=== PATIENT | male | born 1940 | race Caucasian/White ===

== ENCOUNTER 2018-10-07 19:19 | Inpatient (IN) | payer OTHER, MEDICAID ==
[~2018-10-07] VITALS: Ht 177.8 cm; Wt 91.6 kg
[~2018-10-07 19:19] MED LIST: BUPIVACAINE /PF 0.75% 10 ML VIAL INJ ONE; LR 1,000 ML IV.SOLN IV ONE; NS IRRIG SOLN 1000 ML IR ONE
[2018-10-07 19:23] VITALS: BP_SYST 99
[2018-10-07] MEDS ORDERED: NACL 0.9% 1,000 ML IV ONE (20:07)
[2018-10-07] MEDS ORDERED: LEVOFLOXACIN 500 MG/D5W 100 ML IV ONE (20:15)
[2018-10-07] MEDS ORDERED: VANCOMYCIN HCL 1,000 MG in NS 250 ML IV ONE (20:15)
[2018-10-07 20:56] LABS: ANION GAP 8 (5-15); CALCIUM 9.3 mg/dL (8.4-11.0); CHLORIDE 100 mmol/L (98-107); CREATININE 1.02 mg/dL (0.55-1.30); GLUCOSE 136 mg/dL (70-99); POTASSIUM 3.7 mmol/L (3.5-5.1); SODIUM SERUM 135 mmol/L (136-145); UREA NITROGEN, BLOOD 16 mg/dL (8-21)
[2018-10-07 20:58] LABS: ALANINE AMINOTRANSFERASE 27 U/L (12-78); ALBUMIN 1.9 g/dL (3.4-4.8); ASPARTATE AMINOTRANSFERASE 36 U/L (10-37); HEMOGLOBIN 12.1 g/dL (14.0-18.0); RED BLOOD CELL COUNT(AUTO) 4.11 MIL/uL (4.2-6.2); TOTAL BILIRUBIN 0.3 mg/dL (0.0-1.0); WHITE BLOOD COUNT (AUTO) 13.6 K/uL (4.8-10.8)
[2018-10-07 20:59] LABS: HEMATOCRIT 36.4 % (36-54); MEAN CORPUSCULAR HEMOGLOBIN 30 pg (27-31); MEAN CORPUSCULAR HGB CONC 33 % (32-36); MEAN CORPUSCULAR VOLUME 89 fL (79.0-98.0); PLATELET COUNT (AUTO) 478 K/uL (130-430); RED CELL DISTRIBUTION WIDTH 15.1 % (9.0-15.0)
[2018-10-07 21:00] LABS: BASOPHILS # (AUTO) 0.1 K/uL (0.0-0.2); BASOPHILS % (AUTO) 0.7 % (0.0-2.0); EOSINOPHILS # (AUTO) 0.3 K/uL (0.0-0.4); EOSINOPHILS % (AUTO) 2.1 % (0.0-4.0); LYMPHOCYTES # (AUTO) 1.9 K/uL (1.0-5.5); LYMPHOCYTES % (AUTO) 14.1 % (20.5-51.5); MONOCYTES # (AUTO) 1.2 K/uL (0.0-1.0); MONOCYTES % (AUTO) 8.6 % (1.7-9.3); NEUTROPHILS # (AUTO) 10.1 K/uL (1.8-7.7); NEUTROPHILS % (AUTO) 74.5 % (40.0-70.0)
[2018-10-07] MEDS ORDERED: VANCOMYCIN HCL 1000 MG/VIAL IV ONE (21:37)
[2018-10-07] MEDS ORDERED: DOCU-144 PO (22:24)
[2018-10-07] MEDS ORDERED: METO50TA7 PO (22:24)
[2018-10-07] MEDS ORDERED: PHEN100C4 PO (22:24)
[2018-10-07] MEDS ORDERED: MULT-1184 PO (22:24)
[2018-10-07] MEDS ORDERED: DILT30TA36 PO (22:24)
[2018-10-07] MEDS ORDERED: HYDR-4039 PO (22:24)
[2018-10-07] MEDS ORDERED: DONE10TA44 PO (22:24)
[2018-10-07] MEDS ORDERED: FAMO40TA71 PO (22:24)
[2018-10-07] MEDS ORDERED: XALEYE OP (22:24)
[2018-10-07] MEDS ORDERED: APIX5TAB4 PO (22:24)
[2018-10-07] MEDS ORDERED: LACT1TAB6 PO (22:24)
[2018-10-07] MEDS ORDERED: LIP80 PO (22:24)
[2018-10-07] MEDS ORDERED: LEVE750T4 PO (22:24)
[2018-10-07] MEDS ORDERED: LACO200T2 PO (22:24)
[2018-10-07] MEDS ORDERED: INSULIN REGULAR, HUMAN 100 UNITS/ML, 10 ML VIAL (novoLIN R) SUBCUT PRN (23:15)
[2018-10-07] MEDS ORDERED: LORazepam 2 MG/ML VIAL IVP PRN (23:15)
[2018-10-07] MEDS ORDERED: NACL 0.9% 1,000 ML IV SCH (23:15)
[2018-10-07] MEDS ORDERED: NACL 0.9% 1,700 ML IV ONE ×2 (23:30→23:45)
[2018-10-08 01:05] VITALS: BP_SYST 160
[2018-10-08] MEDS: NACL 0.9% 1,000 ML IV SCH ×2 (03:08→23:52)
[2018-10-08] MEDS: INSULIN REGULAR, HUMAN 100 UNITS/ML, 10 ML VIAL (novoLIN R) SUBCUT PRN ×2 (06:08→20:10)
[2018-10-08 07:29] LABS: INR 1.2 (0.80-1.20); PROTHROMBIN TIME 11.8 SECS (9.5-12.5)
[2018-10-08 07:48] LABS: RED BLOOD CELL COUNT(AUTO) 3.45 MIL/uL (4.2-6.2)
[2018-10-08 07:49] LABS: BASOPHILS % (AUTO) 0.4 % (0.0-2.0); EOSINOPHILS % (AUTO) 1.3 % (0.0-4.0); HEMATOCRIT 30.5 % (36-54); HEMOGLOBIN 9.9 g/dL (14.0-18.0); LYMPHOCYTES # (AUTO) 1.9 K/uL (1.0-5.5); LYMPHOCYTES % (AUTO) 15.9 % (20.5-51.5); MEAN CORPUSCULAR HEMOGLOBIN 29 pg (27-31); MEAN CORPUSCULAR HGB CONC 32 % (32-36); MEAN CORPUSCULAR VOLUME 88 fL (79.0-98.0); MONOCYTES # (AUTO) 1.3 K/uL (0.0-1.0); MONOCYTES % (AUTO) 10.4 % (1.7-9.3); NEUTROPHILS # (AUTO) 8.6 K/uL (1.8-7.7); PLATELET COUNT (AUTO) 380 K/uL (130-430); RED CELL DISTRIBUTION WIDTH 15.8 % (9.0-15.0)
[2018-10-08 07:50] LABS: EOSINOPHILS # (AUTO) 0.2 K/uL (0.0-0.4)
[2018-10-08 07:55] LABS: ANION GAP 6 (5-15); CALCIUM 8.1 mg/dL (8.4-11.0); CHLORIDE 103 mmol/L (98-107); CREATININE 0.69 mg/dL (0.55-1.30); GLUCOSE 128 mg/dL (70-99); POTASSIUM 3.6 mmol/L (3.5-5.1); SODIUM SERUM 133 mmol/L (136-145); UREA NITROGEN, BLOOD 16 mg/dL (8-21)
[2018-10-08] MEDS ORDERED: DOCUSATE SODIUM 100 MG CAPSULE PO SCH ×2 (09:00)
[2018-10-08] MEDS: LATANOPROST 2.5 ML DROPS (XALATAN) OP SCH ×2 (09:00→09:24)
[2018-10-08] MEDS ORDERED: LACTOBACILLUS RHAMNOSUS GG 1 CAP CAPSULE PO SCH (09:00)
[2018-10-08] MEDS: VANCOMYCIN HCL 1,750 MG in NS 500 ML IV SCH ×2 (09:24→20:08)
[2018-10-08] MEDS: hydrALAZINE HCL 25 MG TABLET PO SCH ×3 (09:25→20:17)
[2018-10-08] MEDS: LACOSAMIDE 100 MG TABLET PO SCH ×3 (09:25→20:18)
[2018-10-08] MEDS: FAMOTIDINE 20 MG TABLET PO SCH (09:25)
[2018-10-08] MEDS: METOPROLOL SUCCINATE 50 MG TAB.SR.24H (TOPROL XL) PO SCH ×2 (09:26→20:18)
[2018-10-08] MEDS: MULTIVITS,CA,MINERALS/IRON/FA 1 TABLET PO SCH (09:27)
[2018-10-08] MEDS: LACTOBACILLUS RHAMNOSUS GG 1 CAP CAPSULE PO SCH ×2 (09:27→20:18)
[2018-10-08] MEDS: levETIRAcetam 500 MG TABLET PO SCH ×2 (09:27→20:18)
[2018-10-08] MEDS: DILTIAZEM HCL 30 MG TABLET PO SCH ×4 (09:28→20:19)
[2018-10-08 10:19] VITALS: BP_SYST 150
[2018-10-08] MEDS ORDERED: CHOLECALCIFEROL (VITAMIN D3) 2,000 UNIT TABLET PO ONE (11:45)
[2018-10-08 12:22] VITALS: BP_SYST 129
[2018-10-08 13:26] LABS: TOTAL IRON BIND. CAPACITY 117 ug/dL (250-450)
[2018-10-08 16:26] VITALS: BP_SYST 131
[2018-10-08] MEDS ORDERED: BALSAM PERU/CASTOR OIL 60 GM OINT...G. TP ONE (16:30)
[2018-10-08 18:29] LABS: BILIRUBIN,URINE NEGATIVE (NEGATIVE); BLOOD, URINE NEGATIVE (NEGATIVE); CLARITY/URINE CLEAR (CLEAR); COLOR,URINE YELLOW (YELLOW); GLUCOSE,URINE NEGATIVE (NEGATIVE); KETONES,URINE NEGATIVE (NEGATIVE); LEUKOCYTE ESTERASE ,URINE NEGATIVE (NEGATIVE); NITRITE, URINE NEGATIVE (NEGATIVE); PH,URINE 5.5 (5.0-8.0); PROTEIN URINE 1+ (NEGATIVE)
[2018-10-08 18:34] LABS: BACTERIA,URINE MODERATE /HPF (None Seen); RBC,URINE 0-3 /HPF (0-3); URINE AMORPHOUS URATE 1+ /HPF (None Seen); WBC,URINE 0-3 /HPF (0-3)
[2018-10-08] MEDS: PHENYTOIN 100 MG CAPSULE PO SCH (20:15)
[2018-10-08] MEDS: ATORVASTATIN 20 MG TABLET PO SCH (20:16)
[2018-10-08] MEDS: DONEPEZIL HCL 5 MG TABLET (ARICEPT) PO SCH (20:18)
[2018-10-08] MEDS ORDERED: LEVOFLOXACIN 500 MG/D5W 100 ML IV SCH (21:00)
[2018-10-08 21:34] VITALS: BP_SYST 150
[2018-10-08] MEDS: PIPERACILLIN/TAZO 4.5GM/DEX-IS 100 ML IV SCH (22:26)
[2018-10-08] MEDS: FLUCONAZOLE 200 mg/ NS 100 ML IV SCH (23:50)
[2018-10-09 00:52] VITALS: BP_SYST 140
[2018-10-09] MEDS: PIPERACILLIN/TAZO 4.5GM/DEX-IS 100 ML IV SCH ×2 (05:12→14:03)
[2018-10-09 07:46] LABS: ANION GAP 10 (5-15); CALCIUM 8.4 mg/dL (8.4-11.0); CHLORIDE 103 mmol/L (98-107); CREATININE 0.68 mg/dL (0.55-1.30); GLUCOSE 141 mg/dL (70-99); POTASSIUM 3.5 mmol/L (3.5-5.1); SODIUM SERUM 136 mmol/L (136-145); UREA NITROGEN, BLOOD 10 mg/dL (8-21)
[2018-10-09 07:56] LABS: ALANINE AMINOTRANSFERASE 20 U/L (12-78); ALBUMIN 1.3 g/dL (3.4-4.8); ASPARTATE AMINOTRANSFERASE 25 U/L (10-37); TOTAL BILIRUBIN 0.3 mg/dL (0.0-1.0)
[2018-10-09 08:03] VITALS: BP_SYST 151
[2018-10-09] MEDS: DOCUSATE SODIUM 100 MG/10 ML UDC PO SCH (08:39)
[2018-10-09] MEDS: LACOSAMIDE 100 MG TABLET PO SCH (08:40)
[2018-10-09] MEDS: hydrALAZINE HCL 25 MG TABLET PO SCH ×2 (08:40→15:00)
[2018-10-09] MEDS: FAMOTIDINE 20 MG TABLET PO SCH (08:40)
[2018-10-09] MEDS: METOPROLOL SUCCINATE 50 MG TAB.SR.24H (TOPROL XL) PO SCH (08:41)
[2018-10-09] MEDS: DILTIAZEM HCL 30 MG TABLET PO SCH ×3 (08:42→17:00)
[2018-10-09] MEDS: MULTIVITS,CA,MINERALS/IRON/FA 1 TABLET PO SCH (08:42)
[2018-10-09] MEDS: LACTOBACILLUS RHAMNOSUS GG 1 CAP CAPSULE PO SCH (08:42)
[2018-10-09] MEDS: CHOLECALCIFEROL (VITAMIN D3) 2,000 UNIT TABLET PO SCH (08:42)
[2018-10-09] MEDS: levETIRAcetam 500 MG TABLET PO SCH (08:42)
[2018-10-09] MEDS: BALSAM PERU/CASTOR OIL 60 GM OINT...G. TP SCH (08:57)
[2018-10-09] MEDS: LATANOPROST 2.5 ML DROPS (XALATAN) OP SCH (08:59)
[2018-10-09] MEDS: VANCOMYCIN HCL 1,750 MG in NS 500 ML IV SCH (10:22)
[2018-10-09] MEDS: D5NS 1,000 ML IV SCH ×2 (11:08→20:45)
[2018-10-09 12:08] VITALS: BP_SYST 128
[2018-10-09 16:30] VITALS: BP_SYST 144
[2018-10-09] MEDS ORDERED: fentaNYL CITRATE/PF 100 MCG/2 ML AMP IVP PRN ×2 (18:45)
[2018-10-09] MEDS ORDERED: ONDANSETRON HCL 4 MG/2 ML VIAL IVP PRN (18:45)
[2018-10-09 19:11] VITALS: BP_SYST 144
[2018-10-09] MEDS ORDERED: MORPHINE 4 MG/ML INJ. SYRINGE IVP PRN (22:45)
[2018-10-09] MEDS ORDERED: HYDROcodone/ACETAMIN 5-325 MG TAB (NORCO/ VICODIN) PO PRN (22:45)
[2018-10-10 00:27] VITALS: BP_SYST 136
[2018-10-10] MEDS: PHENYTOIN 100 MG CAPSULE PO SCH ×2 (00:33→22:04)
[2018-10-10] MEDS: hydrALAZINE HCL 25 MG TABLET PO SCH ×4 (00:33→22:05)
[2018-10-10] MEDS: LACTOBACILLUS RHAMNOSUS GG 1 CAP CAPSULE PO SCH ×3 (00:33→22:03)
[2018-10-10] MEDS: ATORVASTATIN 20 MG TABLET PO SCH ×2 (00:33→22:05)
[2018-10-10] MEDS: LACOSAMIDE 100 MG TABLET PO SCH ×3 (00:33→22:09)
[2018-10-10] MEDS: METOPROLOL SUCCINATE 50 MG TAB.SR.24H (TOPROL XL) PO SCH ×3 (00:34→22:06)
[2018-10-10] MEDS: DILTIAZEM HCL 30 MG TABLET PO SCH ×5 (00:34→22:05)
[2018-10-10] MEDS: levETIRAcetam 500 MG TABLET PO SCH ×3 (00:35→22:04)
[2018-10-10] MEDS: DONEPEZIL HCL 5 MG TABLET (ARICEPT) PO SCH ×2 (00:35→22:09)
[2018-10-10] MEDS: FLUCONAZOLE 200 mg/ NS 100 ML IV SCH ×2 (00:35→18:10)
[2018-10-10] MEDS: INSULIN REGULAR, HUMAN 100 UNITS/ML, 10 ML VIAL (novoLIN R) SUBCUT PRN ×3 (00:37→16:16)
[2018-10-10] MEDS: PIPERACILLIN/TAZO 4.5GM/DEX-IS 100 ML IV SCH ×4 (02:01→22:03)
[2018-10-10] MEDS: VANCOMYCIN HCL 1,750 MG in NS 500 ML IV SCH ×3 (03:03→22:03)
[2018-10-10] MEDS: D5NS 1,000 ML IV SCH ×2 (06:45→16:24)
[2018-10-10 07:45] VITALS: BP_SYST 120
[2018-10-10] MEDS: BALSAM PERU/CASTOR OIL 60 GM OINT...G. TP SCH (09:00)
[2018-10-10] MEDS: DOCUSATE SODIUM 100 MG/10 ML UDC PO SCH (09:34)
[2018-10-10] MEDS: CHOLECALCIFEROL (VITAMIN D3) 2,000 UNIT TABLET PO SCH (09:35)
[2018-10-10] MEDS: FAMOTIDINE 20 MG TABLET PO SCH (09:36)
[2018-10-10] MEDS: MULTIVITS,CA,MINERALS/IRON/FA 1 TABLET PO SCH (09:36)
[2018-10-10] MEDS: LATANOPROST 2.5 ML DROPS (XALATAN) OP SCH (09:48)
[2018-10-10 13:14] VITALS: BP_SYST 140
[2018-10-10 14:31] LABS: ANION GAP 9 (5-15); CALCIUM 8.3 mg/dL (8.4-11.0); CHLORIDE 105 mmol/L (98-107); CREATININE 1.06 mg/dL (0.55-1.30); GLUCOSE 179 mg/dL (70-99); POTASSIUM 3.5 mmol/L (3.5-5.1); SODIUM SERUM 138 mmol/L (136-145); UREA NITROGEN, BLOOD 10 mg/dL (8-21)
[2018-10-10 14:37] LABS: ALANINE AMINOTRANSFERASE 20 U/L (12-78); ALBUMIN 1.4 g/dL (3.4-4.8); ASPARTATE AMINOTRANSFERASE 30 U/L (10-37); TOTAL BILIRUBIN 0.3 mg/dL (0.0-1.0)
[2018-10-10 14:40] LABS: HEMOGLOBIN 9.8 g/dL (14.0-18.0); RED BLOOD CELL COUNT(AUTO) 3.38 MIL/uL (4.2-6.2); WHITE BLOOD COUNT (AUTO) 12.4 K/uL (4.8-10.8)
[2018-10-10 14:41] LABS: BASOPHILS % (AUTO) 1.1 % (0.0-2.0); EOSINOPHILS % (AUTO) 5.2 % (0.0-4.0); HEMATOCRIT 29.8 % (36-54); LYMPHOCYTES % (AUTO) 10.4 % (20.5-51.5); MEAN CORPUSCULAR HEMOGLOBIN 29 pg (27-31); MEAN CORPUSCULAR HGB CONC 33 % (32-36); MEAN CORPUSCULAR VOLUME 88 fL (79.0-98.0); MONOCYTES % (AUTO) 9.2 % (1.7-9.3); NEUTROPHILS # (AUTO) 9.2 K/uL (1.8-7.7); NEUTROPHILS % (AUTO) 74.1 % (40.0-70.0); PLATELET COUNT (AUTO) 407 K/uL (130-430); RED CELL DISTRIBUTION WIDTH 15.6 % (9.0-15.0)
[2018-10-10 14:42] LABS: BASOPHILS # (AUTO) 0.1 K/uL (0.0-0.2); EOSINOPHILS # (AUTO) 0.6 K/uL (0.0-0.4); LYMPHOCYTES # (AUTO) 1.3 K/uL (1.0-5.5); MONOCYTES # (AUTO) 1.1 K/uL (0.0-1.0)
[2018-10-10 18:09] VITALS: BP_SYST 132
[2018-10-10 20:41] VITALS: BP_SYST 145
[2018-10-11 00:42] VITALS: BP_SYST 109
[2018-10-11] MEDS: D5NS 1,000 ML IV SCH ×2 (02:00→16:16)
[2018-10-11] MEDS: PIPERACILLIN/TAZO 4.5GM/DEX-IS 100 ML IV SCH ×3 (06:13→23:27)
[2018-10-11 07:06] LABS: ANION GAP 9 (5-15); CALCIUM 8.5 mg/dL (8.4-11.0); CHLORIDE 105 mmol/L (98-107); CREATININE 1.09 mg/dL (0.55-1.30); GLUCOSE 147 mg/dL (70-99); POTASSIUM 3.5 mmol/L (3.5-5.1); SODIUM SERUM 136 mmol/L (136-145); UREA NITROGEN, BLOOD 9 mg/dL (8-21)
[2018-10-11 07:32] LABS: HEMATOCRIT 27.5 % (36-54); HEMOGLOBIN 8.9 g/dL (14.0-18.0); RED BLOOD CELL COUNT(AUTO) 3.06 MIL/uL (4.2-6.2); WHITE BLOOD COUNT (AUTO) 11.6 K/uL (4.8-10.8)
[2018-10-11 07:33] LABS: BASOPHILS # (AUTO) 0.1 K/uL (0.0-0.2); BASOPHILS % (AUTO) 0.5 % (0.0-2.0); EOSINOPHILS # (AUTO) 0.6 K/uL (0.0-0.4); EOSINOPHILS % (AUTO) 5.3 % (0.0-4.0); LYMPHOCYTES % (AUTO) 16.9 % (20.5-51.5); MEAN CORPUSCULAR HEMOGLOBIN 29 pg (27-31); MEAN CORPUSCULAR HGB CONC 33 % (32-36); MEAN CORPUSCULAR VOLUME 90 fL (79.0-98.0); MONOCYTES # (AUTO) 1.4 K/uL (0.0-1.0); MONOCYTES % (AUTO) 12.1 % (1.7-9.3); NEUTROPHILS # (AUTO) 7.6 K/uL (1.8-7.7); NEUTROPHILS % (AUTO) 65.2 % (40.0-70.0); PLATELET COUNT (AUTO) 372 K/uL (130-430); RED CELL DISTRIBUTION WIDTH 16.1 % (9.0-15.0)
[2018-10-11 08:56] VITALS: BP_SYST 116
[2018-10-11] MEDS: VANCOMYCIN HCL 1,750 MG in NS 500 ML IV SCH ×2 (09:02→20:26)
[2018-10-11] MEDS: hydrALAZINE HCL 25 MG TABLET PO SCH ×2 (09:03→15:00)
[2018-10-11] MEDS: LATANOPROST 2.5 ML DROPS (XALATAN) OP SCH (09:03)
[2018-10-11] MEDS: METOPROLOL SUCCINATE 50 MG TAB.SR.24H (TOPROL XL) PO SCH ×2 (09:04→21:58)
[2018-10-11] MEDS: CHOLECALCIFEROL (VITAMIN D3) 2,000 UNIT TABLET PO SCH (09:04)
[2018-10-11] MEDS: levETIRAcetam 500 MG TABLET PO SCH ×2 (09:04→21:59)
[2018-10-11] MEDS: LACTOBACILLUS RHAMNOSUS GG 1 CAP CAPSULE PO SCH ×2 (09:04→21:57)
[2018-10-11] MEDS: DOCUSATE SODIUM 100 MG/10 ML UDC PO SCH (09:05)
[2018-10-11] MEDS: FAMOTIDINE 20 MG TABLET PO SCH (09:05)
[2018-10-11] MEDS: DILTIAZEM HCL 30 MG TABLET PO SCH ×4 (09:05→21:58)
[2018-10-11] MEDS: MULTIVITS,CA,MINERALS/IRON/FA 1 TABLET PO SCH ×2 (09:07→21:57)
[2018-10-11] MEDS: LACOSAMIDE 100 MG TABLET PO SCH ×2 (09:07→21:58)
[2018-10-11 13:00] VITALS: BP_SYST 120
[2018-10-11] MEDS ORDERED: IRON SUCROSE COMPLEX 100 MG in NS 50 ML IV ONE (14:30)
[2018-10-11] MEDS ORDERED: EPOETIN ALFA 4,000 UNITS/ML VIAL SUBCUT ONE (14:30)
[2018-10-11 16:42] VITALS: BP_SYST 112
[2018-10-11] MEDS: FLUCONAZOLE 200 mg/ NS 100 ML IV SCH (18:46)
[2018-10-11 20:09] VITALS: BP_SYST 154
[2018-10-11] MEDS: ATORVASTATIN 20 MG TABLET PO SCH (21:57)
[2018-10-11] MEDS: PHENYTOIN 100 MG CAPSULE PO SCH (21:59)
[2018-10-11] MEDS: DONEPEZIL HCL 5 MG TABLET (ARICEPT) PO SCH (21:59)
[2018-10-12] MEDS: D5NS 1,000 ML IV SCH (02:50)
[2018-10-12 03:21] VITALS: BP_SYST 127
[2018-10-12] MEDS: PIPERACILLIN/TAZO 4.5GM/DEX-IS 100 ML IV SCH ×3 (06:06→23:04)
[2018-10-12 07:34] LABS: ANION GAP 7 (5-15); CALCIUM 8.4 mg/dL (8.4-11.0); CHLORIDE 110 mmol/L (98-107); CREATININE 1.34 mg/dL (0.55-1.30); GLUCOSE 147 mg/dL (70-99); POTASSIUM 3.1 mmol/L (3.5-5.1); SODIUM SERUM 142 mmol/L (136-145); UREA NITROGEN, BLOOD 12 mg/dL (8-21)
[2018-10-12 07:38] VITALS: BP_SYST 151; BP_SYST 157
[2018-10-12] MEDS: levETIRAcetam 500 MG TABLET PO SCH ×2 (09:19→20:45)
[2018-10-12] MEDS: LACOSAMIDE 100 MG TABLET PO SCH ×2 (09:19→20:42)
[2018-10-12] MEDS: DOCUSATE SODIUM 100 MG/10 ML UDC PO SCH (09:19)
[2018-10-12] MEDS: FAMOTIDINE 20 MG TABLET PO SCH (09:19)
[2018-10-12] MEDS: LACTOBACILLUS RHAMNOSUS GG 1 CAP CAPSULE PO SCH ×2 (09:20→20:43)
[2018-10-12] MEDS: METOPROLOL SUCCINATE 50 MG TAB.SR.24H (TOPROL XL) PO SCH ×2 (09:20→20:45)
[2018-10-12 09:21] LABS: HEMATOCRIT 25.2 % (36-54); HEMOGLOBIN 8.2 g/dL (14.0-18.0); LYMPHOCYTES % (AUTO) 14.4 % (20.5-51.5); MEAN CORPUSCULAR HEMOGLOBIN 29 pg (27-31); MEAN CORPUSCULAR HGB CONC 33 % (32-36); MEAN CORPUSCULAR VOLUME 89 fL (79.0-98.0); NEUTROPHILS % (AUTO) 68.9 % (40.0-70.0); PLATELET COUNT (AUTO) 323 K/uL (130-430); RED BLOOD CELL COUNT(AUTO) 2.83 MIL/uL (4.2-6.2); RED CELL DISTRIBUTION WIDTH 16.3 % (9.0-15.0); WHITE BLOOD COUNT (AUTO) 10.3 K/uL (4.8-10.8)
[2018-10-12 09:22] LABS: BASOPHILS # (AUTO) 0.1 K/uL (0.0-0.2); BASOPHILS % (AUTO) 0.5 % (0.0-2.0); EOSINOPHILS # (AUTO) 0.5 K/uL (0.0-0.4); EOSINOPHILS % (AUTO) 5.2 % (0.0-4.0); LYMPHOCYTES # (AUTO) 1.5 K/uL (1.0-5.5); MONOCYTES # (AUTO) 1.1 K/uL (0.0-1.0); NEUTROPHILS # (AUTO) 7.1 K/uL (1.8-7.7)
[2018-10-12] MEDS: LATANOPROST 2.5 ML DROPS (XALATAN) OP SCH (09:22)
[2018-10-12] MEDS: CHOLECALCIFEROL (VITAMIN D3) 2,000 UNIT TABLET PO SCH (09:22)
[2018-10-12] MEDS: MULTIVITS,CA,MINERALS/IRON/FA 1 TABLET PO SCH ×2 (09:22→20:44)
[2018-10-12] MEDS: DILTIAZEM HCL 30 MG TABLET PO SCH ×4 (09:22→20:44)
[2018-10-12] MEDS: VANCOMYCIN HCL 1,750 MG in NS 500 ML IV SCH ×2 (09:23→20:42)
[2018-10-12] MEDS ORDERED: POTASSIUM CHLORIDE 20 MEQ TAB.PRT.SR PO ONE (13:45)
[2018-10-12 13:55] VITALS: BP_SYST 128
[2018-10-12] MEDS: LR 1,000 ML IV SCH (14:14)
[2018-10-12 16:39] VITALS: BP_SYST 135
[2018-10-12] MEDS: FLUCONAZOLE 200 mg/ NS 100 ML IV SCH (19:22)
[2018-10-12 20:00] VITALS: BP_SYST 145
[2018-10-12] MEDS: PHENYTOIN 100 MG CAPSULE PO SCH (20:43)
[2018-10-12] MEDS: ATORVASTATIN 20 MG TABLET PO SCH (20:44)
[2018-10-12] MEDS: DONEPEZIL HCL 5 MG TABLET (ARICEPT) PO SCH (20:44)
[2018-10-13 02:45] VITALS: BP_SYST 147
[2018-10-13] MEDS: LR 1,000 ML IV SCH ×2 (06:01→16:40)
[2018-10-13] MEDS: PIPERACILLIN/TAZO 4.5GM/DEX-IS 100 ML IV SCH ×2 (06:02→14:05)
[2018-10-13 08:18] VITALS: BP_SYST 143
[2018-10-13 08:23] LABS: ANION GAP 9 (5-15); CALCIUM 8.6 mg/dL (8.4-11.0); CHLORIDE 114 mmol/L (98-107); CREATININE 1.69 mg/dL (0.55-1.30); GLUCOSE 147 mg/dL (70-99); POTASSIUM 3.9 mmol/L (3.5-5.1); SODIUM SERUM 144 mmol/L (136-145); UREA NITROGEN, BLOOD 19 mg/dL (8-21)
[2018-10-13 08:40] LABS: RED BLOOD CELL COUNT(AUTO) 3.17 MIL/uL (4.2-6.2); WHITE BLOOD COUNT (AUTO) 11.7 K/uL (4.8-10.8)
[2018-10-13 08:41] LABS: BASOPHILS # (AUTO) 0.1 K/uL (0.0-0.2); EOSINOPHILS # (AUTO) 0.5 K/uL (0.0-0.4); HEMATOCRIT 28.9 % (36-54); LYMPHOCYTES # (AUTO) 1.5 K/uL (1.0-5.5); LYMPHOCYTES % (AUTO) 12.8 % (20.5-51.5); MEAN CORPUSCULAR HEMOGLOBIN 28 pg (27-31); MEAN CORPUSCULAR HGB CONC 31 % (32-36); MEAN CORPUSCULAR VOLUME 91 fL (79.0-98.0); MONOCYTES # (AUTO) 1.1 K/uL (0.0-1.0); MONOCYTES % (AUTO) 9.4 % (1.7-9.3); NEUTROPHILS # (AUTO) 8.5 K/uL (1.8-7.7); NEUTROPHILS % (AUTO) 72.8 % (40.0-70.0); PLATELET COUNT (AUTO) 358 K/uL (130-430); RED CELL DISTRIBUTION WIDTH 16.9 % (9.0-15.0)
[2018-10-13] MEDS: CHOLECALCIFEROL (VITAMIN D3) 2,000 UNIT TABLET PO SCH (09:00)
[2018-10-13] MEDS: FAMOTIDINE 20 MG TABLET PO SCH (10:16)
[2018-10-13] MEDS: levETIRAcetam 500 MG TABLET PO SCH ×2 (10:17→20:39)
[2018-10-13] MEDS: DILTIAZEM HCL 30 MG TABLET PO SCH ×4 (10:17→20:38)
[2018-10-13] MEDS: DOCUSATE SODIUM 100 MG/10 ML UDC PO SCH (10:17)
[2018-10-13] MEDS: MULTIVITS,CA,MINERALS/IRON/FA 1 TABLET PO SCH ×2 (10:17→20:38)
[2018-10-13] MEDS: LACTOBACILLUS RHAMNOSUS GG 1 CAP CAPSULE PO SCH ×2 (10:18→20:38)
[2018-10-13] MEDS: METOPROLOL SUCCINATE 50 MG TAB.SR.24H (TOPROL XL) PO SCH ×2 (10:18→20:37)
[2018-10-13] MEDS: LATANOPROST 2.5 ML DROPS (XALATAN) OP SCH (11:11)
[2018-10-13] MEDS: LACOSAMIDE 100 MG TABLET PO SCH ×2 (11:12→20:39)
[2018-10-13 12:22] VITALS: BP_SYST 149
[2018-10-13 15:36] VITALS: BP_SYST 148
[2018-10-13] MEDS: cefTRIAXone 1 GM in D5W 50 ML IV SCH (16:40)
[2018-10-13 20:00] VITALS: BP_SYST 152
[2018-10-13] MEDS: PHENYTOIN 100 MG CAPSULE PO SCH (20:38)
[2018-10-13] MEDS: ATORVASTATIN 20 MG TABLET PO SCH (20:39)
[2018-10-13] MEDS: APIXABAN 2.5 MG TABLET PO SCH (20:39)
[2018-10-13] MEDS: DONEPEZIL HCL 5 MG TABLET (ARICEPT) PO SCH (20:39)
[2018-10-14 01:21] VITALS: BP_SYST 148
[2018-10-14] MEDS: LR 1,000 ML IV SCH ×2 (02:38→16:21)
[2018-10-14 07:10] LABS: ANION GAP 9 (5-15); CALCIUM 9.3 mg/dL (8.4-11.0); CHLORIDE 114 mmol/L (98-107); GLUCOSE 135 mg/dL (70-99); POTASSIUM 3.7 mmol/L (3.5-5.1); SODIUM SERUM 147 mmol/L (136-145); UREA NITROGEN, BLOOD 18 mg/dL (8-21)
[2018-10-14 08:00] VITALS: BP_SYST 124
[2018-10-14 08:19] LABS: VANCOMYCIN,RANDOM 55.8 ug/mL
[2018-10-14 08:23] LABS: HEMATOCRIT 31.4 % (36-54); MEAN CORPUSCULAR HEMOGLOBIN 29 pg (27-31); MEAN CORPUSCULAR HGB CONC 32 % (32-36); MEAN CORPUSCULAR VOLUME 91 fL (79.0-98.0); NEUTROPHILS % (AUTO) 72.8 % (40.0-70.0); PLATELET COUNT (AUTO) 434 K/uL (130-430); RED BLOOD CELL COUNT(AUTO) 3.43 MIL/uL (4.2-6.2); RED CELL DISTRIBUTION WIDTH 16.9 % (9.0-15.0); WHITE BLOOD COUNT (AUTO) 13.1 K/uL (4.8-10.8)
[2018-10-14 08:24] LABS: BASOPHILS # (AUTO) 0.1 K/uL (0.0-0.2); BASOPHILS % (AUTO) 0.8 % (0.0-2.0); EOSINOPHILS # (AUTO) 0.5 K/uL (0.0-0.4); EOSINOPHILS % (AUTO) 3.8 % (0.0-4.0); LYMPHOCYTES # (AUTO) 2.1 K/uL (1.0-5.5); LYMPHOCYTES % (AUTO) 15.8 % (20.5-51.5); MONOCYTES # (AUTO) 0.9 K/uL (0.0-1.0); MONOCYTES % (AUTO) 6.8 % (1.7-9.3); NEUTROPHILS # (AUTO) 9.6 K/uL (1.8-7.7)
[2018-10-14] MEDS: FAMOTIDINE 20 MG TABLET PO SCH (10:21)
[2018-10-14] MEDS: CHOLECALCIFEROL (VITAMIN D3) 2,000 UNIT TABLET PO SCH (10:21)
[2018-10-14] MEDS: DOCUSATE SODIUM 100 MG/10 ML UDC PO SCH (10:21)
[2018-10-14] MEDS: METOPROLOL SUCCINATE 50 MG TAB.SR.24H (TOPROL XL) PO SCH ×2 (10:22→22:38)
[2018-10-14] MEDS: MULTIVITS,CA,MINERALS/IRON/FA 1 TABLET PO SCH ×2 (10:22→22:41)
[2018-10-14] MEDS: LACTOBACILLUS RHAMNOSUS GG 1 CAP CAPSULE PO SCH ×2 (10:22→22:41)
[2018-10-14] MEDS: APIXABAN 2.5 MG TABLET PO SCH ×2 (10:22→22:42)
[2018-10-14] MEDS: levETIRAcetam 500 MG TABLET PO SCH ×2 (10:28→22:40)
[2018-10-14] MEDS: DILTIAZEM HCL 30 MG TABLET PO SCH ×4 (10:29→22:38)
[2018-10-14] MEDS: LATANOPROST 2.5 ML DROPS (XALATAN) OP SCH (10:29)
[2018-10-14] MEDS: LACOSAMIDE 100 MG TABLET PO SCH ×2 (10:29→22:36)
[2018-10-14 12:11] VITALS: BP_SYST 156
[2018-10-14] MEDS: cefTRIAXone 1 GM in D5W 50 ML IV SCH (16:21)
[2018-10-14 16:38] VITALS: BP_SYST 149
[2018-10-14 20:40] VITALS: BP_SYST 164
[2018-10-14] MEDS: ATORVASTATIN 20 MG TABLET PO SCH (22:39)
[2018-10-14] MEDS: PHENYTOIN 100 MG CAPSULE PO SCH (22:40)
[2018-10-14] MEDS: DONEPEZIL HCL 5 MG TABLET (ARICEPT) PO SCH (22:41)
[2018-10-15 00:16] VITALS: BP_SYST 109
[2018-10-15] MEDS: LR 1,000 ML IV SCH ×2 (05:46→17:51)
[2018-10-15 08:00] VITALS: BP_SYST 154
[2018-10-15 08:24] LABS: ANION GAP 10 (5-15); CALCIUM 8.4 mg/dL (8.4-11.0); CHLORIDE 117 mmol/L (98-107); CREATININE 1.61 mg/dL (0.55-1.30); GLUCOSE 120 mg/dL (70-99); SODIUM SERUM 154 mmol/L (136-145); UREA NITROGEN, BLOOD 15 mg/dL (8-21)
[2018-10-15] MEDS: MULTIVITS,CA,MINERALS/IRON/FA 1 TABLET PO SCH ×2 (09:00→22:55)
[2018-10-15] MEDS: APIXABAN 2.5 MG TABLET PO SCH (09:00)
[2018-10-15] MEDS: LACTOBACILLUS RHAMNOSUS GG 1 CAP CAPSULE PO SCH ×2 (10:15→22:57)
[2018-10-15] MEDS: levETIRAcetam 500 MG TABLET PO SCH ×2 (10:15→22:56)
[2018-10-15] MEDS: CHOLECALCIFEROL (VITAMIN D3) 2,000 UNIT TABLET PO SCH (10:15)
[2018-10-15] MEDS: FAMOTIDINE 20 MG TABLET PO SCH (10:16)
[2018-10-15] MEDS: METOPROLOL SUCCINATE 50 MG TAB.SR.24H (TOPROL XL) PO SCH ×2 (10:16→22:57)
[2018-10-15] MEDS: DILTIAZEM HCL 30 MG TABLET PO SCH ×4 (10:16→22:56)
[2018-10-15] MEDS: DOCUSATE SODIUM 100 MG/10 ML UDC PO SCH (10:16)
[2018-10-15] MEDS: LACOSAMIDE 100 MG TABLET PO SCH ×2 (10:18→22:55)
[2018-10-15] MEDS: LATANOPROST 2.5 ML DROPS (XALATAN) OP SCH (10:18)
[2018-10-15 10:26] LABS: EOSINOPHILS % (AUTO) 4.3 % (0.0-4.0); HEMOGLOBIN 8.3 g/dL (14.0-18.0); LYMPHOCYTES % (AUTO) 18.1 % (20.5-51.5); MEAN CORPUSCULAR HEMOGLOBIN 29 pg (27-31); MEAN CORPUSCULAR HGB CONC 32 % (32-36); MEAN CORPUSCULAR VOLUME 90 fL (79.0-98.0); MONOCYTES % (AUTO) 8.1 % (1.7-9.3); NEUTROPHILS % (AUTO) 68.5 % (40.0-70.0); PLATELET COUNT (AUTO) 393 K/uL (130-430); RED CELL DISTRIBUTION WIDTH 16.8 % (9.0-15.0); WHITE BLOOD COUNT (AUTO) 10.1 K/uL (4.8-10.8)
[2018-10-15 10:27] LABS: BASOPHILS # (AUTO) 0.1 K/uL (0.0-0.2); EOSINOPHILS # (AUTO) 0.4 K/uL (0.0-0.4); LYMPHOCYTES # (AUTO) 1.8 K/uL (1.0-5.5); MONOCYTES # (AUTO) 0.8 K/uL (0.0-1.0); NEUTROPHILS # (AUTO) 6.9 K/uL (1.8-7.7)
[2018-10-15 11:28] VITALS: BP_SYST 136
[2018-10-15 15:10] VITALS: BP_SYST 141
[2018-10-15] MEDS ORDERED: POTASSIUM CHLORIDE 40 MEQ, LIDOCAINE JECT 2% PF 100 MG 50 MG in NS 250 ML IV ONE (15:15)
[2018-10-15] MEDS: cefTRIAXone 1 GM in D5W 50 ML IV SCH (16:04)
[2018-10-15 20:37] VITALS: BP_SYST 137
[2018-10-15] MEDS ORDERED: LACOSAMIDE 100 MG TABLET ONE (22:52)
[2018-10-15] MEDS: PHENYTOIN 100 MG CAPSULE PO SCH (22:55)
[2018-10-15] MEDS: DONEPEZIL HCL 5 MG TABLET (ARICEPT) PO SCH (22:57)
[2018-10-15] MEDS: ATORVASTATIN 20 MG TABLET PO SCH (22:59)
[2018-10-16 00:36] VITALS: BP_SYST 111
[2018-10-16] MEDS: LR 1,000 ML IV SCH ×3 (07:32→23:17)
[2018-10-16 07:45] VITALS: BP_SYST 123
[2018-10-16 08:06] LABS: ANION GAP 7 (5-15); CALCIUM 8.8 mg/dL (8.4-11.0); CHLORIDE 116 mmol/L (98-107); GLUCOSE 130 mg/dL (70-99); SODIUM SERUM 150 mmol/L (136-145); UREA NITROGEN, BLOOD 15 mg/dL (8-21)
[2018-10-16 08:52] LABS: BASOPHILS % (AUTO) 0.9 % (0.0-2.0); EOSINOPHILS % (AUTO) 5.4 % (0.0-4.0); HEMATOCRIT 28.4 % (36-54); HEMOGLOBIN 9.1 g/dL (14.0-18.0); LYMPHOCYTES % (AUTO) 17.6 % (20.5-51.5); MEAN CORPUSCULAR HEMOGLOBIN 29 pg (27-31); MEAN CORPUSCULAR HGB CONC 32 % (32-36); MEAN CORPUSCULAR VOLUME 89 fL (79.0-98.0); MONOCYTES % (AUTO) 7.6 % (1.7-9.3); NEUTROPHILS # (AUTO) 7.2 K/uL (1.8-7.7); NEUTROPHILS % (AUTO) 68.5 % (40.0-70.0); PLATELET COUNT (AUTO) 456 K/uL (130-430); RED BLOOD CELL COUNT(AUTO) 3.18 MIL/uL (4.2-6.2); WHITE BLOOD COUNT (AUTO) 10.5 K/uL (4.8-10.8)
[2018-10-16 08:53] LABS: BASOPHILS # (AUTO) 0.1 K/uL (0.0-0.2); EOSINOPHILS # (AUTO) 0.6 K/uL (0.0-0.4); LYMPHOCYTES # (AUTO) 1.8 K/uL (1.0-5.5); MONOCYTES # (AUTO) 0.8 K/uL (0.0-1.0)
[2018-10-16] MEDS: DOCUSATE SODIUM 100 MG/10 ML UDC PO SCH (09:00)
[2018-10-16] MEDS: MULTIVITS,CA,MINERALS/IRON/FA 1 TABLET PO SCH ×2 (09:10→22:56)
[2018-10-16] MEDS: FAMOTIDINE 20 MG TABLET PO SCH (09:10)
[2018-10-16] MEDS: levETIRAcetam 500 MG TABLET PO SCH ×2 (09:10→22:56)
[2018-10-16] MEDS: LACOSAMIDE 100 MG TABLET PO SCH ×2 (09:10→22:56)
[2018-10-16] MEDS: METOPROLOL SUCCINATE 50 MG TAB.SR.24H (TOPROL XL) PO SCH ×2 (09:11→22:55)
[2018-10-16] MEDS: DILTIAZEM HCL 30 MG TABLET PO SCH ×4 (09:11→22:57)
[2018-10-16] MEDS: LACTOBACILLUS RHAMNOSUS GG 1 CAP CAPSULE PO SCH ×2 (09:11→22:56)
[2018-10-16] MEDS: CHOLECALCIFEROL (VITAMIN D3) 2,000 UNIT TABLET PO SCH (09:11)
[2018-10-16] MEDS: LATANOPROST 2.5 ML DROPS (XALATAN) OP SCH (09:11)
[2018-10-16 12:14] VITALS: BP_SYST 129
[2018-10-16] MEDS ORDERED: BALSAM PERU/CASTOR OIL 60 GM OINT...G. TP ONE (14:45)
[2018-10-16 16:02] VITALS: BP_SYST 149
[2018-10-16] MEDS: cefTRIAXone 1 GM in D5W 50 ML IV SCH (16:25)
[2018-10-16 20:00] VITALS: BP_SYST 154
[2018-10-16] MEDS ORDERED: PHENYTOIN 100 MG CAPSULE PO SCH (21:00)
[2018-10-16] MEDS: ATORVASTATIN 20 MG TABLET PO SCH (22:54)
[2018-10-16] MEDS: DONEPEZIL HCL 5 MG TABLET (ARICEPT) PO SCH (22:56)
[2018-10-17 01:01] VITALS: BP_SYST 102
[2018-10-17 06:57] LABS: ANION GAP 4 (5-15); CHLORIDE 115 mmol/L (98-107); CREATININE 1.62 mg/dL (0.55-1.30); GLUCOSE 115 mg/dL (70-99); PHENYTOIN (DILANTIN) 28.5 ug/mL (10.0-20.0); SODIUM SERUM 149 mmol/L (136-145); UREA NITROGEN, BLOOD 14 mg/dL (8-21)
[2018-10-17 07:00] LABS: INR 1.3 (0.80-1.20)
[2018-10-17 07:03] LABS: PROTHROMBIN TIME 13.5 SECS (9.5-12.5)
[2018-10-17 07:13] LABS: POTASSIUM 2.9 mmol/L (3.5-5.1)
[2018-10-17 07:41] LABS: WHITE BLOOD COUNT (AUTO) 8.5 K/uL (4.8-10.8)
[2018-10-17 07:42] LABS: BASOPHILS # (AUTO) 0.1 K/uL (0.0-0.2); EOSINOPHILS # (AUTO) 0.6 K/uL (0.0-0.4); EOSINOPHILS % (AUTO) 6.8 % (0.0-4.0); HEMATOCRIT 31.1 % (36-54); HEMOGLOBIN 10.1 g/dL (14.0-18.0); LYMPHOCYTES % (AUTO) 23.6 % (20.5-51.5); MEAN CORPUSCULAR HEMOGLOBIN 29 pg (27-31); MEAN CORPUSCULAR HGB CONC 32 % (32-36); MEAN CORPUSCULAR VOLUME 90 fL (79.0-98.0); MONOCYTES # (AUTO) 0.6 K/uL (0.0-1.0); NEUTROPHILS # (AUTO) 5.2 K/uL (1.8-7.7); NEUTROPHILS % (AUTO) 61.6 % (40.0-70.0); PLATELET COUNT (AUTO) 470 K/uL (130-430); RED BLOOD CELL COUNT(AUTO) 3.46 MIL/uL (4.2-6.2); RED CELL DISTRIBUTION WIDTH 17.4 % (9.0-15.0)
[2018-10-17] MEDS ORDERED: POTASSIUM CHLORIDE 40 MEQ in NS 250 ML IV ONE (07:45)
[2018-10-17] MEDS ORDERED: fentaNYL CITRATE/PF 100 MCG/2 ML AMP ONE (08:28)
[2018-10-17] MEDS ORDERED: SIMETHICONE 40 MG/0.6 ML ML ONE (08:29)
[2018-10-17] MEDS: MIDAZOLAM HCL 5 MG/5 ML VIAL ONE ×2 (09:01→09:05)
[2018-10-17 12:56] VITALS: BP_SYST 143
[2018-10-17] MEDS: DILTIAZEM HCL 30 MG TABLET PO SCH ×4 (13:00→20:39)
[2018-10-17] MEDS: DOCUSATE SODIUM 100 MG/10 ML UDC PO SCH (16:47)
[2018-10-17] MEDS: LACTOBACILLUS RHAMNOSUS GG 1 CAP CAPSULE PO SCH ×2 (16:47→20:39)
[2018-10-17] MEDS: levETIRAcetam 500 MG TABLET PO SCH ×2 (16:47→20:39)
[2018-10-17] MEDS: cefTRIAXone 1 GM in D5W 50 ML IV SCH (16:48)
[2018-10-17] MEDS: METOPROLOL SUCCINATE 50 MG TAB.SR.24H (TOPROL XL) PO SCH ×2 (16:49→20:39)
[2018-10-17] MEDS: CHOLECALCIFEROL (VITAMIN D3) 2,000 UNIT TABLET PO SCH (16:49)
[2018-10-17] MEDS: MULTIVITS,CA,MINERALS/IRON/FA 1 TABLET PO SCH ×2 (16:49→20:38)
[2018-10-17] MEDS: FAMOTIDINE 20 MG TABLET PO SCH (16:50)
[2018-10-17] MEDS: LACOSAMIDE 100 MG TABLET PO SCH ×2 (16:50→20:44)
[2018-10-17] MEDS: LATANOPROST 2.5 ML DROPS (XALATAN) OP SCH (16:51)
[2018-10-17] MEDS: BALSAM PERU/CASTOR OIL 60 GM OINT...G. TP SCH (16:51)
[2018-10-17] MEDS: LR 1,000 ML IV SCH (16:52)
[2018-10-17 17:15] VITALS: BP_SYST 125
[2018-10-17] MEDS ORDERED: POTASSIUM CHLORIDE 40 MEQ, LIDOCAINE JECT 2% PF 100 MG 50 MG in NS 250 ML IV ONE (18:30)
[2018-10-17] MEDS ORDERED: D5W 500 ML IV ONE (20:00)
[2018-10-17] MEDS ORDERED: FUROSEMIDE 20 MG/2 ML VIAL IVP ONE (20:00)
[2018-10-17 20:22] VITALS: BP_SYST 122
[2018-10-17] MEDS: ATORVASTATIN 20 MG TABLET PO SCH (20:40)
[2018-10-17] MEDS: DONEPEZIL HCL 5 MG TABLET (ARICEPT) PO SCH (20:40)
[2018-10-17] MEDS: INSULIN REGULAR, HUMAN 100 UNITS/ML, 10 ML VIAL (novoLIN R) SUBCUT PRN (20:47)
[2018-10-17 23:00] VITALS: BP_SYST 125
[2018-10-18 07:45] LABS: ANION GAP 4 (5-15); CALCIUM 8.3 mg/dL (8.4-11.0); CHLORIDE 118 mmol/L (98-107); CREATININE 1.77 mg/dL (0.55-1.30); GLUCOSE 127 mg/dL (70-99); PHENYTOIN (DILANTIN) 24.4 ug/mL (10.0-20.0); POTASSIUM 3.4 mmol/L (3.5-5.1); SODIUM SERUM 152 mmol/L (136-145); UREA NITROGEN, BLOOD 23 mg/dL (8-21)
[2018-10-18 08:00] VITALS: BP_SYST 140
[2018-10-18 08:07] LABS: EOSINOPHILS % (AUTO) 7.5 % (0.0-4.0); HEMATOCRIT 26.5 % (36-54); HEMOGLOBIN 8.6 g/dL (14.0-18.0); LYMPHOCYTES % (AUTO) 26.1 % (20.5-51.5); MEAN CORPUSCULAR HEMOGLOBIN 30 pg (27-31); MEAN CORPUSCULAR HGB CONC 33 % (32-36); MEAN CORPUSCULAR VOLUME 91 fL (79.0-98.0); MONOCYTES % (AUTO) 8.9 % (1.7-9.3); NEUTROPHILS % (AUTO) 56.4 % (40.0-70.0); PLATELET COUNT (AUTO) 397 K/uL (130-430); RED BLOOD CELL COUNT(AUTO) 2.91 MIL/uL (4.2-6.2); RED CELL DISTRIBUTION WIDTH 17.8 % (9.0-15.0); WHITE BLOOD COUNT (AUTO) 7.9 K/uL (4.8-10.8)
[2018-10-18 08:08] LABS: BASOPHILS # (AUTO) 0.1 K/uL (0.0-0.2); BASOPHILS % (AUTO) 1.1 % (0.0-2.0); EOSINOPHILS # (AUTO) 0.6 K/uL (0.0-0.4); LYMPHOCYTES # (AUTO) 2.1 K/uL (1.0-5.5); MONOCYTES # (AUTO) 0.7 K/uL (0.0-1.0); NEUTROPHILS # (AUTO) 4.5 K/uL (1.8-7.7)
[2018-10-18] MEDS: DOCUSATE SODIUM 100 MG/10 ML UDC PO SCH (09:39)
[2018-10-18] MEDS: FAMOTIDINE 20 MG TABLET PO SCH (09:40)
[2018-10-18] MEDS: CHOLECALCIFEROL (VITAMIN D3) 2,000 UNIT TABLET PO SCH (09:40)
[2018-10-18] MEDS: LACTOBACILLUS RHAMNOSUS GG 1 CAP CAPSULE PO SCH ×2 (09:40→22:32)
[2018-10-18] MEDS: levETIRAcetam 500 MG TABLET PO SCH ×2 (09:41→22:32)
[2018-10-18] MEDS: MULTIVITS,CA,MINERALS/IRON/FA 1 TABLET PO SCH ×2 (09:41→22:32)
[2018-10-18] MEDS: DILTIAZEM HCL 30 MG TABLET PO SCH ×4 (09:41→22:34)
[2018-10-18] MEDS: METOPROLOL SUCCINATE 50 MG TAB.SR.24H (TOPROL XL) PO SCH ×2 (09:42→22:34)
[2018-10-18] MEDS: BALSAM PERU/CASTOR OIL 60 GM OINT...G. TP SCH (09:45)
[2018-10-18] MEDS ORDERED: POTASSIUM CHLORIDE 20 MEQ/PKT PACKET GT ONE (10:00)
[2018-10-18] MEDS: LATANOPROST 2.5 ML DROPS (XALATAN) OP SCH (11:07)
[2018-10-18] MEDS: LACOSAMIDE 100 MG TABLET PO SCH ×2 (11:10→22:33)
[2018-10-18 12:43] VITALS: BP_SYST 113
[2018-10-18] MEDS: D5W 1,000 ML IV SCH ×2 (16:16→23:30)
[2018-10-18] MEDS: cefTRIAXone 1 GM in D5W 50 ML IV SCH (16:17)
[2018-10-18 17:25] VITALS: BP_SYST 153
[2018-10-18 22:30] VITALS: BP_SYST 140
[2018-10-18] MEDS: ATORVASTATIN 20 MG TABLET PO SCH (22:33)
[2018-10-18] MEDS: DONEPEZIL HCL 5 MG TABLET (ARICEPT) PO SCH (22:33)
[2018-10-18] MEDS: INSULIN REGULAR, HUMAN 100 UNITS/ML, 10 ML VIAL (novoLIN R) SUBCUT PRN (22:47)
[2018-10-19 02:00] VITALS: BP_SYST 138
[2018-10-19] MEDS: D5W 1,000 ML IV SCH ×3 (02:06→23:14)
[2018-10-19 07:10] LABS: ANION GAP 5 (5-15); CALCIUM 8.4 mg/dL (8.4-11.0); CHLORIDE 114 mmol/L (98-107); CREATININE 1.86 mg/dL (0.55-1.30); GLUCOSE 126 mg/dL (70-99); PHENYTOIN (DILANTIN) 26.9 ug/mL (10.0-20.0); POTASSIUM 3.6 mmol/L (3.5-5.1); SODIUM SERUM 149 mmol/L (136-145); UREA NITROGEN, BLOOD 28 mg/dL (8-21)
[2018-10-19 08:00] VITALS: BP_SYST 132
[2018-10-19 08:05] VITALS: BP_SYST 132
[2018-10-19 08:07] LABS: HEMOGLOBIN 9.7 g/dL (14.0-18.0); RED BLOOD CELL COUNT(AUTO) 3.31 MIL/uL (4.2-6.2); WHITE BLOOD COUNT (AUTO) 9.5 K/uL (4.8-10.8)
[2018-10-19 08:08] LABS: BASOPHILS % (AUTO) 0.4 % (0.0-2.0); EOSINOPHILS # (AUTO) 0.7 K/uL (0.0-0.4); LYMPHOCYTES # (AUTO) 2.4 K/uL (1.0-5.5); LYMPHOCYTES % (AUTO) 24.8 % (20.5-51.5); MEAN CORPUSCULAR HEMOGLOBIN 29 pg (27-31); MEAN CORPUSCULAR HGB CONC 32 % (32-36); MEAN CORPUSCULAR VOLUME 91 fL (79.0-98.0); MONOCYTES # (AUTO) 0.8 K/uL (0.0-1.0); MONOCYTES % (AUTO) 8.6 % (1.7-9.3); NEUTROPHILS # (AUTO) 5.6 K/uL (1.8-7.7); NEUTROPHILS % (AUTO) 59.2 % (40.0-70.0); PLATELET COUNT (AUTO) 400 K/uL (130-430); RED CELL DISTRIBUTION WIDTH 18.1 % (9.0-15.0)
[2018-10-19] MEDS: LATANOPROST 2.5 ML DROPS (XALATAN) OP SCH (09:09)
[2018-10-19] MEDS: DOCUSATE SODIUM 100 MG/10 ML UDC PO SCH (09:09)
[2018-10-19] MEDS: BALSAM PERU/CASTOR OIL 60 GM OINT...G. TP SCH (09:10)
[2018-10-19] MEDS: CHOLECALCIFEROL (VITAMIN D3) 2,000 UNIT TABLET PO SCH (09:10)
[2018-10-19] MEDS: levETIRAcetam 500 MG TABLET PO SCH ×2 (09:10→23:15)
[2018-10-19] MEDS: DILTIAZEM HCL 30 MG TABLET PO SCH ×4 (09:10→23:16)
[2018-10-19] MEDS: LACTOBACILLUS RHAMNOSUS GG 1 CAP CAPSULE PO SCH ×2 (09:11→23:16)
[2018-10-19] MEDS: LACOSAMIDE 100 MG TABLET PO SCH ×2 (09:11→23:15)
[2018-10-19] MEDS: MULTIVITS,CA,MINERALS/IRON/FA 1 TABLET PO SCH ×2 (09:11→23:15)
[2018-10-19] MEDS: METOPROLOL SUCCINATE 50 MG TAB.SR.24H (TOPROL XL) PO SCH ×2 (09:12→23:17)
[2018-10-19] MEDS: FAMOTIDINE 20 MG TABLET PO SCH (09:12)
[2018-10-19 12:11] VITALS: BP_SYST 145
[2018-10-19] MEDS: cefTRIAXone 1 GM in D5W 50 ML IV SCH (16:28)
[2018-10-19 16:41] VITALS: BP_SYST 132
[2018-10-19 21:00] VITALS: BP_SYST 135
[2018-10-19] MEDS: ATORVASTATIN 20 MG TABLET PO SCH (23:16)
[2018-10-19] MEDS: DONEPEZIL HCL 5 MG TABLET (ARICEPT) PO SCH (23:17)
[2018-10-19] MEDS: APIXABAN 2.5 MG TABLET PO SCH (23:18)
[2018-10-20 00:57] VITALS: BP_SYST 136
[2018-10-20 07:18] LABS: ANION GAP 5 (5-15); CHLORIDE 105 mmol/L (98-107); CREATININE 1.78 mg/dL (0.55-1.30); GLUCOSE 116 mg/dL (70-99); PHENYTOIN (DILANTIN) 22.2 ug/mL (10.0-20.0); POTASSIUM 3.8 mmol/L (3.5-5.1); SODIUM SERUM 141 mmol/L (136-145); UREA NITROGEN, BLOOD 28 mg/dL (8-21)
[2018-10-20 08:02] LABS: HEMATOCRIT 31.4 % (36-54); MEAN CORPUSCULAR HEMOGLOBIN 29 pg (27-31); MEAN CORPUSCULAR HGB CONC 32 % (32-36); MEAN CORPUSCULAR VOLUME 90 fL (79.0-98.0); PLATELET COUNT (AUTO) 394 K/uL (130-430); RED BLOOD CELL COUNT(AUTO) 3.48 MIL/uL (4.2-6.2); WHITE BLOOD COUNT (AUTO) 11.4 K/uL (4.8-10.8)
[2018-10-20 08:03] LABS: BASOPHILS % (AUTO) 0.4 % (0.0-2.0); EOSINOPHILS % (AUTO) 8.3 % (0.0-4.0); LYMPHOCYTES # (AUTO) 2.4 K/uL (1.0-5.5); LYMPHOCYTES % (AUTO) 21.2 % (20.5-51.5); MONOCYTES # (AUTO) 0.9 K/uL (0.0-1.0); MONOCYTES % (AUTO) 8.2 % (1.7-9.3); NEUTROPHILS % (AUTO) 61.9 % (40.0-70.0)
[2018-10-20] MEDS: DOCUSATE SODIUM 100 MG/10 ML UDC PO SCH (09:22)
[2018-10-20] MEDS: LACOSAMIDE 100 MG TABLET PO SCH ×2 (09:23→21:43)
[2018-10-20] MEDS: LACTOBACILLUS RHAMNOSUS GG 1 CAP CAPSULE PO SCH ×2 (09:23→21:43)
[2018-10-20] MEDS: CHOLECALCIFEROL (VITAMIN D3) 2,000 UNIT TABLET PO SCH (09:23)
[2018-10-20] MEDS: MULTIVITS,CA,MINERALS/IRON/FA 1 TABLET PO SCH ×2 (09:23→21:40)
[2018-10-20] MEDS: FAMOTIDINE 20 MG TABLET PO SCH (09:23)
[2018-10-20] MEDS: levETIRAcetam 500 MG TABLET PO SCH ×2 (09:24→21:43)
[2018-10-20] MEDS: DILTIAZEM HCL 30 MG TABLET PO SCH ×4 (09:24→21:41)
[2018-10-20] MEDS: METOPROLOL SUCCINATE 50 MG TAB.SR.24H (TOPROL XL) PO SCH ×2 (09:24→21:41)
[2018-10-20] MEDS: LATANOPROST 2.5 ML DROPS (XALATAN) OP SCH (09:25)
[2018-10-20] MEDS: BALSAM PERU/CASTOR OIL 60 GM OINT...G. TP SCH (09:26)
[2018-10-20] MEDS: APIXABAN 2.5 MG TABLET PO SCH ×2 (09:27→21:42)
[2018-10-20 11:31] VITALS: BP_SYST 141
[2018-10-20] MEDS: D5W 1,000 ML IV SCH (14:20)
[2018-10-20 15:11] VITALS: BP_SYST 140
[2018-10-20] MEDS: cefTRIAXone 1 GM in D5W 50 ML IV SCH (17:11)
[2018-10-20 18:35] LABS: CALCIUM 8.6 mg/dL (8.4-11.0)
[2018-10-20 20:00] VITALS: BP_SYST 131
[2018-10-20] MEDS: ATORVASTATIN 20 MG TABLET PO SCH (21:40)
[2018-10-20] MEDS: DONEPEZIL HCL 5 MG TABLET (ARICEPT) PO SCH (21:43)
[2018-10-20] MEDS: INSULIN REGULAR, HUMAN 100 UNITS/ML, 10 ML VIAL (novoLIN R) SUBCUT PRN (21:43)
[2018-10-21 00:50] VITALS: BP_SYST 139
[2018-10-21] MEDS: D5W 1,000 ML IV SCH ×2 (02:35→15:29)
[2018-10-21] MEDS: INSULIN REGULAR, HUMAN 100 UNITS/ML, 10 ML VIAL (novoLIN R) SUBCUT PRN (06:06)
[2018-10-21 07:38] LABS: ANION GAP 5 (5-15); CALCIUM 8.2 mg/dL (8.4-11.0); CHLORIDE 100 mmol/L (98-107); CREATININE 1.66 mg/dL (0.55-1.30); GLUCOSE 132 mg/dL (70-99); POTASSIUM 4.2 mmol/L (3.5-5.1); SODIUM SERUM 134 mmol/L (136-145); UREA NITROGEN, BLOOD 29 mg/dL (8-21)
[2018-10-21 08:00] VITALS: BP_SYST 140
[2018-10-21] MEDS: BALSAM PERU/CASTOR OIL 60 GM OINT...G. TP SCH (09:06)
[2018-10-21] MEDS: LATANOPROST 2.5 ML DROPS (XALATAN) OP SCH (09:07)
[2018-10-21] MEDS: CHOLECALCIFEROL (VITAMIN D3) 2,000 UNIT TABLET PO SCH (09:07)
[2018-10-21] MEDS: FAMOTIDINE 20 MG TABLET PO SCH (09:07)
[2018-10-21] MEDS: levETIRAcetam 500 MG TABLET PO SCH ×2 (09:07→21:04)
[2018-10-21] MEDS: MULTIVITS,CA,MINERALS/IRON/FA 1 TABLET PO SCH ×2 (09:08→21:05)
[2018-10-21] MEDS: METOPROLOL SUCCINATE 50 MG TAB.SR.24H (TOPROL XL) PO SCH ×2 (09:08→21:05)
[2018-10-21] MEDS: LACOSAMIDE 100 MG TABLET PO SCH ×2 (09:08→21:03)
[2018-10-21] MEDS: LACTOBACILLUS RHAMNOSUS GG 1 CAP CAPSULE PO SCH ×2 (09:08→21:03)
[2018-10-21] MEDS: DOCUSATE SODIUM 100 MG/10 ML UDC PO SCH (09:08)
[2018-10-21] MEDS: APIXABAN 2.5 MG TABLET PO SCH ×2 (09:09→21:06)
[2018-10-21] MEDS: DILTIAZEM HCL 30 MG TABLET PO SCH ×4 (09:09→21:04)
[2018-10-21 09:25] LABS: HEMATOCRIT 27.9 % (36-54); HEMOGLOBIN 8.9 g/dL (14.0-18.0); MEAN CORPUSCULAR HEMOGLOBIN 29 pg (27-31); MEAN CORPUSCULAR HGB CONC 32 % (32-36); MEAN CORPUSCULAR VOLUME 90 fL (79.0-98.0); NEUTROPHILS % (AUTO) 59.8 % (40.0-70.0); PLATELET COUNT (AUTO) 357 K/uL (130-430); RED BLOOD CELL COUNT(AUTO) 3.09 MIL/uL (4.2-6.2); RED CELL DISTRIBUTION WIDTH 17.9 % (9.0-15.0); WHITE BLOOD COUNT (AUTO) 11.1 K/uL (4.8-10.8)
[2018-10-21 09:26] LABS: BASOPHILS % (AUTO) 0.3 % (0.0-2.0); EOSINOPHILS % (AUTO) 8.9 % (0.0-4.0); LYMPHOCYTES # (AUTO) 2.5 K/uL (1.0-5.5); LYMPHOCYTES % (AUTO) 22.5 % (20.5-51.5); MONOCYTES # (AUTO) 0.9 K/uL (0.0-1.0); MONOCYTES % (AUTO) 8.5 % (1.7-9.3); NEUTROPHILS # (AUTO) 6.6 K/uL (1.8-7.7)
[2018-10-21 12:31] VITALS: BP_SYST 138
[2018-10-21 16:48] VITALS: BP_SYST 144
[2018-10-21 20:00] VITALS: BP_SYST 146
[2018-10-21] MEDS: ATORVASTATIN 20 MG TABLET PO SCH (21:05)
[2018-10-21] MEDS: DONEPEZIL HCL 5 MG TABLET (ARICEPT) PO SCH (21:07)
[2018-10-22 03:11] VITALS: BP_SYST 131
[2018-10-22] MEDS: levETIRAcetam 500 MG TABLET PO SCH ×2 (08:36→21:29)
[2018-10-22] MEDS: MULTIVITS,CA,MINERALS/IRON/FA 1 TABLET PO SCH ×2 (08:36→21:29)
[2018-10-22] MEDS: DOCUSATE SODIUM 100 MG/10 ML UDC PO SCH (08:36)
[2018-10-22] MEDS: CHOLECALCIFEROL (VITAMIN D3) 2,000 UNIT TABLET PO SCH (08:36)
[2018-10-22] MEDS: METOPROLOL SUCCINATE 50 MG TAB.SR.24H (TOPROL XL) PO SCH ×2 (08:37→21:30)
[2018-10-22] MEDS: LACOSAMIDE 100 MG TABLET PO SCH ×2 (08:37→21:29)
[2018-10-22] MEDS: FAMOTIDINE 20 MG TABLET PO SCH (08:37)
[2018-10-22] MEDS: LACTOBACILLUS RHAMNOSUS GG 1 CAP CAPSULE PO SCH ×2 (08:38→21:28)
[2018-10-22] MEDS: DILTIAZEM HCL 30 MG TABLET PO SCH ×4 (08:38→21:30)
[2018-10-22] MEDS: LATANOPROST 2.5 ML DROPS (XALATAN) OP SCH (08:38)
[2018-10-22] MEDS: APIXABAN 2.5 MG TABLET PO SCH ×2 (08:39→21:31)
[2018-10-22] MEDS: D5W 1,000 ML IV SCH (08:48)
[2018-10-22 12:00] VITALS: BP_SYST 156
[2018-10-22 12:02] VITALS: BP_SYST 156
[2018-10-22] MEDS: BALSAM PERU/CASTOR OIL 60 GM OINT...G. TP SCH (15:00)
[2018-10-22 16:06] VITALS: BP_SYST 129
[2018-10-22 20:00] VITALS: BP_SYST 138
[2018-10-22] MEDS: ATORVASTATIN 20 MG TABLET PO SCH (21:28)
[2018-10-22] MEDS: DONEPEZIL HCL 5 MG TABLET (ARICEPT) PO SCH (21:29)
[2018-10-22 23:40] VITALS: BP_SYST 121
[2018-10-23] MEDS: D5W 1,000 ML IV SCH (01:16)
[2018-10-23 07:08] LABS: BASOPHILS % (AUTO) 0.4 % (0.0-2.0); EOSINOPHILS # (AUTO) 0.7 K/uL (0.0-0.4); EOSINOPHILS % (AUTO) 6.8 % (0.0-4.0); HEMATOCRIT 29.6 % (36-54); HEMOGLOBIN 9.8 g/dL (14.0-18.0); LYMPHOCYTES % (AUTO) 19.4 % (20.5-51.5); MEAN CORPUSCULAR HEMOGLOBIN 30 pg (27-31); MEAN CORPUSCULAR HGB CONC 33 % (32-36); MEAN CORPUSCULAR VOLUME 89 fL (79.0-98.0); MONOCYTES # (AUTO) 1.2 K/uL (0.0-1.0); MONOCYTES % (AUTO) 11.7 % (1.7-9.3); NEUTROPHILS # (AUTO) 6.3 K/uL (1.8-7.7); NEUTROPHILS % (AUTO) 61.7 % (40.0-70.0); PLATELET COUNT (AUTO) 334 K/uL (130-430); RED BLOOD CELL COUNT(AUTO) 3.32 MIL/uL (4.2-6.2); RED CELL DISTRIBUTION WIDTH 17.7 % (9.0-15.0); WHITE BLOOD COUNT (AUTO) 10.3 K/uL (4.8-10.8)
[2018-10-23 07:17] LABS: ANION GAP 7 (5-15); CALCIUM 8.6 mg/dL (8.4-11.0); CHLORIDE 100 mmol/L (98-107); CREATININE 1.81 mg/dL (0.55-1.30); GLUCOSE 124 mg/dL (70-99); POTASSIUM 4.7 mmol/L (3.5-5.1); SODIUM SERUM 135 mmol/L (136-145); UREA NITROGEN, BLOOD 58 mg/dL (8-21)
[2018-10-23 08:00] VITALS: BP_SYST 139
[2018-10-23] MEDS: LACOSAMIDE 100 MG TABLET PO SCH ×2 (09:19→20:48)
[2018-10-23] MEDS: DILTIAZEM HCL 30 MG TABLET PO SCH ×4 (09:20→20:55)
[2018-10-23] MEDS: MULTIVITS,CA,MINERALS/IRON/FA 1 TABLET PO SCH ×2 (09:20→20:48)
[2018-10-23] MEDS: FAMOTIDINE 20 MG TABLET PO SCH (09:22)
[2018-10-23] MEDS: CHOLECALCIFEROL (VITAMIN D3) 2,000 UNIT TABLET PO SCH (09:22)
[2018-10-23] MEDS: levETIRAcetam 500 MG TABLET PO SCH ×2 (09:22→20:46)
[2018-10-23] MEDS: LATANOPROST 2.5 ML DROPS (XALATAN) OP SCH (09:22)
[2018-10-23] MEDS: LACTOBACILLUS RHAMNOSUS GG 1 CAP CAPSULE PO SCH ×2 (09:22→20:48)
[2018-10-23] MEDS: METOPROLOL SUCCINATE 50 MG TAB.SR.24H (TOPROL XL) PO SCH ×2 (09:23→20:55)
[2018-10-23] MEDS: APIXABAN 2.5 MG TABLET PO SCH ×2 (09:27→20:54)
[2018-10-23] MEDS: DOCUSATE SODIUM 100 MG/10 ML UDC PO SCH (09:33)
[2018-10-23] MEDS: BALSAM PERU/CASTOR OIL 60 GM OINT...G. TP SCH (10:30)
[2018-10-23 11:24] VITALS: BP_SYST 137
[2018-10-23] MEDS: 0.45% NACL 1,000 ML IV SCH (11:47)
[2018-10-23 15:48] VITALS: BP_SYST 133
[2018-10-23 19:18] VITALS: BP_SYST 138
[2018-10-23] MEDS: ATORVASTATIN 20 MG TABLET PO SCH (20:46)
[2018-10-23] MEDS: DONEPEZIL HCL 5 MG TABLET (ARICEPT) PO SCH (20:48)
[2018-10-24 00:55] VITALS: BP_SYST 132
[2018-10-24] MEDS: 0.45% NACL 1,000 ML IV SCH ×2 (06:40→12:30)
[2018-10-24 08:00] VITALS: BP_SYST 117
[2018-10-24] MEDS: LATANOPROST 2.5 ML DROPS (XALATAN) OP SCH (09:20)
[2018-10-24] MEDS: levETIRAcetam 500 MG TABLET PO SCH ×2 (09:20→20:14)
[2018-10-24] MEDS: DILTIAZEM HCL 30 MG TABLET PO SCH ×4 (09:20→20:20)
[2018-10-24] MEDS: DOCUSATE SODIUM 100 MG/10 ML UDC PO SCH (09:20)
[2018-10-24] MEDS: CHOLECALCIFEROL (VITAMIN D3) 2,000 UNIT TABLET PO SCH (09:21)
[2018-10-24] MEDS: FAMOTIDINE 20 MG TABLET PO SCH (09:21)
[2018-10-24] MEDS: LACOSAMIDE 100 MG TABLET PO SCH ×2 (09:21→20:16)
[2018-10-24] MEDS: METOPROLOL SUCCINATE 50 MG TAB.SR.24H (TOPROL XL) PO SCH ×2 (09:21→20:21)
[2018-10-24] MEDS: APIXABAN 2.5 MG TABLET PO SCH ×2 (09:22→20:19)
[2018-10-24] MEDS: LACTOBACILLUS RHAMNOSUS GG 1 CAP CAPSULE PO SCH ×2 (09:23→20:13)
[2018-10-24] MEDS: BALSAM PERU/CASTOR OIL 60 GM OINT...G. TP SCH (09:23)
[2018-10-24] MEDS: MULTIVITS,CA,MINERALS/IRON/FA 1 TABLET PO SCH ×2 (09:23→20:13)
[2018-10-24 11:56] VITALS: BP_SYST 120
[2018-10-24 16:56] VITALS: BP_SYST 122
[2018-10-24 19:05] VITALS: BP_SYST 118
[2018-10-24] MEDS: DONEPEZIL HCL 5 MG TABLET (ARICEPT) PO SCH (20:13)
[2018-10-24] MEDS: ATORVASTATIN 20 MG TABLET PO SCH (20:13)
[2018-10-25 00:26] VITALS: BP_SYST 147
[2018-10-25] MEDS: 0.45% NACL 1,000 ML IV SCH ×2 (04:39→12:50)
[2018-10-25 08:00] VITALS: BP_SYST 131
[2018-10-25] MEDS: CHOLECALCIFEROL (VITAMIN D3) 2,000 UNIT TABLET PO SCH (09:28)
[2018-10-25] MEDS: METOPROLOL SUCCINATE 50 MG TAB.SR.24H (TOPROL XL) PO SCH ×2 (09:28→21:22)
[2018-10-25] MEDS: APIXABAN 2.5 MG TABLET PO SCH ×2 (09:29→21:22)
[2018-10-25] MEDS: DILTIAZEM HCL 30 MG TABLET PO SCH ×4 (09:30→21:22)
[2018-10-25] MEDS: LACTOBACILLUS RHAMNOSUS GG 1 CAP CAPSULE PO SCH ×2 (09:30→21:22)
[2018-10-25] MEDS: FAMOTIDINE 20 MG TABLET PO SCH (09:30)
[2018-10-25] MEDS: levETIRAcetam 500 MG TABLET PO SCH ×2 (09:30→21:20)
[2018-10-25] MEDS: LACOSAMIDE 100 MG TABLET PO SCH ×2 (09:30→21:20)
[2018-10-25] MEDS: MULTIVITS,CA,MINERALS/IRON/FA 1 TABLET PO SCH ×2 (09:30→21:20)
[2018-10-25] MEDS: DOCUSATE SODIUM 100 MG/10 ML UDC PO SCH (09:30)
[2018-10-25] MEDS: BALSAM PERU/CASTOR OIL 60 GM OINT...G. TP SCH (09:31)
[2018-10-25] MEDS: LATANOPROST 2.5 ML DROPS (XALATAN) OP SCH (09:32)
[2018-10-25 12:43] VITALS: BP_SYST 110
[2018-10-25 16:21] VITALS: BP_SYST 150
[2018-10-25 20:00] VITALS: BP_SYST 117
[2018-10-25] MEDS: ATORVASTATIN 20 MG TABLET PO SCH (21:20)
[2018-10-25] MEDS: DONEPEZIL HCL 5 MG TABLET (ARICEPT) PO SCH (21:21)
[2018-10-26 00:15] VITALS: BP_SYST 132
[2018-10-26] MEDS: 0.45% NACL 1,000 ML IV SCH ×2 (01:59→14:35)
[2018-10-26 09:00] VITALS: BP_SYST 119
[2018-10-26] MEDS: LATANOPROST 2.5 ML DROPS (XALATAN) OP SCH (09:40)
[2018-10-26] MEDS: DILTIAZEM HCL 30 MG TABLET PO SCH ×4 (09:41→21:00)
[2018-10-26] MEDS: METOPROLOL SUCCINATE 50 MG TAB.SR.24H (TOPROL XL) PO SCH ×2 (09:41→21:00)
[2018-10-26] MEDS: APIXABAN 2.5 MG TABLET PO SCH ×2 (09:42→21:01)
[2018-10-26] MEDS: LACOSAMIDE 100 MG TABLET PO SCH ×2 (09:42→21:00)
[2018-10-26] MEDS: MULTIVITS,CA,MINERALS/IRON/FA 1 TABLET PO SCH ×2 (09:42→21:00)
[2018-10-26] MEDS: FAMOTIDINE 20 MG TABLET PO SCH (09:42)
[2018-10-26] MEDS: levETIRAcetam 500 MG TABLET PO SCH ×2 (09:43→20:59)
[2018-10-26] MEDS: CHOLECALCIFEROL (VITAMIN D3) 2,000 UNIT TABLET PO SCH (09:43)
[2018-10-26] MEDS: LACTOBACILLUS RHAMNOSUS GG 1 CAP CAPSULE PO SCH ×2 (09:43→20:59)
[2018-10-26] MEDS: DOCUSATE SODIUM 100 MG/10 ML UDC PO SCH (09:43)
[2018-10-26] MEDS: BALSAM PERU/CASTOR OIL 60 GM OINT...G. TP SCH (09:45)
[2018-10-26 11:09] VITALS: BP_SYST 139
[2018-10-26 12:43] LABS: BASOPHILS # (AUTO) 0.1 K/uL (0.0-0.2); BASOPHILS % (AUTO) 0.8 % (0.0-2.0); EOSINOPHILS # (AUTO) 0.7 K/uL (0.0-0.4); EOSINOPHILS % (AUTO) 8.8 % (0.0-4.0); HEMATOCRIT 29.1 % (36-54); HEMOGLOBIN 9.4 g/dL (14.0-18.0); LYMPHOCYTES # (AUTO) 1.7 K/uL (1.0-5.5); LYMPHOCYTES % (AUTO) 20.9 % (20.5-51.5); MEAN CORPUSCULAR HEMOGLOBIN 29 pg (27-31); MEAN CORPUSCULAR HGB CONC 32 % (32-36); MEAN CORPUSCULAR VOLUME 91 fL (79.0-98.0); MONOCYTES % (AUTO) 12.3 % (1.7-9.3); NEUTROPHILS # (AUTO) 4.7 K/uL (1.8-7.7); NEUTROPHILS % (AUTO) 57.2 % (40.0-70.0); PLATELET COUNT (AUTO) 360 K/uL (130-430); RED BLOOD CELL COUNT(AUTO) 3.22 MIL/uL (4.2-6.2); RED CELL DISTRIBUTION WIDTH 18.8 % (9.0-15.0); WHITE BLOOD COUNT (AUTO) 8.3 K/uL (4.8-10.8)
[2018-10-26 13:07] LABS: ALANINE AMINOTRANSFERASE 20 U/L (12-78); ALBUMIN 1.5 g/dL (3.4-4.8); ANION GAP 6 (5-15); ASPARTATE AMINOTRANSFERASE 34 U/L (10-37); CALCIUM 8.8 mg/dL (8.4-11.0); CHLORIDE 100 mmol/L (98-107); CREATININE 1.53 mg/dL (0.55-1.30); GLUCOSE 118 mg/dL (70-99); POTASSIUM 3.9 mmol/L (3.5-5.1); SODIUM SERUM 133 mmol/L (136-145); TOTAL BILIRUBIN 0.2 mg/dL (0.0-1.0); UREA NITROGEN, BLOOD 68 mg/dL (8-21)
[2018-10-26 15:57] VITALS: BP_SYST 148
[2018-10-26 20:00] VITALS: BP_SYST 132
[2018-10-26] MEDS: ATORVASTATIN 20 MG TABLET PO SCH (20:59)
[2018-10-26] MEDS: DONEPEZIL HCL 5 MG TABLET (ARICEPT) PO SCH (21:00)
[2018-10-27 01:19] VITALS: BP_SYST 136
[2018-10-27] MEDS: 0.45% NACL 1,000 ML IV SCH ×3 (04:10→22:04)
[2018-10-27 08:00] VITALS: BP_SYST 158
[2018-10-27] MEDS: LACTOBACILLUS RHAMNOSUS GG 1 CAP CAPSULE PO SCH ×2 (09:37→21:02)
[2018-10-27] MEDS: METOPROLOL SUCCINATE 50 MG TAB.SR.24H (TOPROL XL) PO SCH ×2 (09:37→21:04)
[2018-10-27] MEDS: DOCUSATE SODIUM 100 MG/10 ML UDC PO SCH (09:37)
[2018-10-27] MEDS: levETIRAcetam 500 MG TABLET PO SCH ×2 (09:37→21:04)
[2018-10-27] MEDS: LACOSAMIDE 100 MG TABLET PO SCH ×2 (09:37→21:03)
[2018-10-27] MEDS: FAMOTIDINE 20 MG TABLET PO SCH (09:38)
[2018-10-27] MEDS: MULTIVITS,CA,MINERALS/IRON/FA 1 TABLET PO SCH ×2 (09:38→21:05)
[2018-10-27] MEDS: CHOLECALCIFEROL (VITAMIN D3) 2,000 UNIT TABLET PO SCH (09:38)
[2018-10-27] MEDS: DILTIAZEM HCL 30 MG TABLET PO SCH ×4 (09:38→21:03)
[2018-10-27] MEDS: APIXABAN 2.5 MG TABLET PO SCH ×2 (09:39→21:04)
[2018-10-27] MEDS: BALSAM PERU/CASTOR OIL 60 GM OINT...G. TP SCH (09:39)
[2018-10-27] MEDS: LATANOPROST 2.5 ML DROPS (XALATAN) OP SCH (09:40)
[2018-10-27 11:30] VITALS: BP_SYST 125
[2018-10-27] MEDS ORDERED: PERMETHRIN 5% 60 GM CREAM.GM. TP ONE (14:15)
[2018-10-27] MEDS ORDERED: CROTAMITON TP ONE (14:15)
[2018-10-27 16:55] VITALS: BP_SYST 137
[2018-10-27] MEDS: ATORVASTATIN 20 MG TABLET PO SCH (21:02)
[2018-10-27] MEDS: DONEPEZIL HCL 5 MG TABLET (ARICEPT) PO SCH (21:04)
[2018-10-28 00:23] VITALS: BP_SYST 151
[2018-10-28 09:30] VITALS: BP_SYST 153
[2018-10-28] MEDS: FAMOTIDINE 20 MG TABLET PO SCH (09:38)
[2018-10-28] MEDS: LACTOBACILLUS RHAMNOSUS GG 1 CAP CAPSULE PO SCH ×2 (09:38→23:14)
[2018-10-28] MEDS: LACOSAMIDE 100 MG TABLET PO SCH ×2 (09:38→23:15)
[2018-10-28] MEDS: 0.45% NACL 1,000 ML IV SCH ×2 (09:38→23:02)
[2018-10-28] MEDS: DOCUSATE SODIUM 100 MG/10 ML UDC PO SCH (09:38)
[2018-10-28] MEDS: METOPROLOL SUCCINATE 50 MG TAB.SR.24H (TOPROL XL) PO SCH ×2 (09:45→23:14)
[2018-10-28] MEDS: DILTIAZEM HCL 30 MG TABLET PO SCH ×4 (09:45→23:13)
[2018-10-28] MEDS: APIXABAN 2.5 MG TABLET PO SCH ×2 (09:45→23:16)
[2018-10-28] MEDS: MULTIVITS,CA,MINERALS/IRON/FA 1 TABLET PO SCH ×2 (09:45→23:14)
[2018-10-28] MEDS: CHOLECALCIFEROL (VITAMIN D3) 2,000 UNIT TABLET PO SCH (09:45)
[2018-10-28] MEDS: BALSAM PERU/CASTOR OIL 60 GM OINT...G. TP SCH (09:46)
[2018-10-28] MEDS: LATANOPROST 2.5 ML DROPS (XALATAN) OP SCH (09:46)
[2018-10-28] MEDS: levETIRAcetam 500 MG TABLET PO SCH ×2 (09:46→23:15)
[2018-10-28 12:05] VITALS: BP_SYST 159
[2018-10-28 16:40] VITALS: BP_SYST 139
[2018-10-28 21:20] VITALS: BP_SYST 153
[2018-10-28] MEDS: ATORVASTATIN 20 MG TABLET PO SCH (23:14)
[2018-10-28] MEDS: DONEPEZIL HCL 5 MG TABLET (ARICEPT) PO SCH (23:15)
[2018-10-29 00:04] VITALS: BP_SYST 146
[2018-10-29 07:53] VITALS: BP_SYST 139
[2018-10-29] MEDS: LACOSAMIDE 100 MG TABLET PO SCH ×2 (10:58→20:57)
[2018-10-29] MEDS: CHOLECALCIFEROL (VITAMIN D3) 2,000 UNIT TABLET PO SCH (10:58)
[2018-10-29] MEDS: FAMOTIDINE 20 MG TABLET PO SCH (10:59)
[2018-10-29] MEDS: MULTIVITS,CA,MINERALS/IRON/FA 1 TABLET PO SCH ×2 (10:59→20:56)
[2018-10-29] MEDS: DILTIAZEM HCL 30 MG TABLET PO SCH ×4 (10:59→21:08)
[2018-10-29] MEDS: levETIRAcetam 500 MG TABLET PO SCH ×2 (10:59→20:57)
[2018-10-29] MEDS: METOPROLOL SUCCINATE 50 MG TAB.SR.24H (TOPROL XL) PO SCH ×2 (11:00→21:09)
[2018-10-29] MEDS: LACTOBACILLUS RHAMNOSUS GG 1 CAP CAPSULE PO SCH ×2 (11:00→20:56)
[2018-10-29] MEDS: APIXABAN 2.5 MG TABLET PO SCH ×2 (11:01→21:16)
[2018-10-29] MEDS: LATANOPROST 2.5 ML DROPS (XALATAN) OP SCH (11:03)
[2018-10-29] MEDS: BALSAM PERU/CASTOR OIL 60 GM OINT...G. TP SCH (11:03)
[2018-10-29 11:36] VITALS: BP_SYST 147
[2018-10-29] MEDS: DOCUSATE SODIUM 100 MG/10 ML UDC PO SCH (12:14)
[2018-10-29] MEDS: 0.45% NACL 1,000 ML IV SCH (12:21)
[2018-10-29 16:41] VITALS: BP_SYST 147
[2018-10-29 20:00] VITALS: BP_SYST 120
[2018-10-29] MEDS: DONEPEZIL HCL 5 MG TABLET (ARICEPT) PO SCH (20:56)
[2018-10-29] MEDS: ATORVASTATIN 20 MG TABLET PO SCH (20:57)
[2018-10-30 00:08] VITALS: BP_SYST 140
[2018-10-30] MEDS: 0.45% NACL 1,000 ML IV SCH ×2 (06:11→13:28)
[2018-10-30] MEDS: DILTIAZEM HCL 30 MG TABLET PO SCH ×4 (09:28→20:57)
[2018-10-30] MEDS: levETIRAcetam 500 MG TABLET PO SCH ×2 (09:28→20:57)
[2018-10-30] MEDS: METOPROLOL SUCCINATE 50 MG TAB.SR.24H (TOPROL XL) PO SCH ×2 (09:28→20:58)
[2018-10-30] MEDS: DOCUSATE SODIUM 100 MG/10 ML UDC PO SCH (09:29)
[2018-10-30] MEDS: MULTIVITS,CA,MINERALS/IRON/FA 1 TABLET PO SCH ×2 (09:29→20:57)
[2018-10-30] MEDS: LACTOBACILLUS RHAMNOSUS GG 1 CAP CAPSULE PO SCH ×2 (09:29→20:56)
[2018-10-30] MEDS: LACOSAMIDE 100 MG TABLET PO SCH ×2 (09:29→20:57)
[2018-10-30] MEDS: LATANOPROST 2.5 ML DROPS (XALATAN) OP SCH (09:29)
[2018-10-30] MEDS: CHOLECALCIFEROL (VITAMIN D3) 2,000 UNIT TABLET PO SCH (09:30)
[2018-10-30] MEDS: FAMOTIDINE 20 MG TABLET PO SCH (09:30)
[2018-10-30] MEDS: APIXABAN 2.5 MG TABLET PO SCH ×2 (09:30→21:05)
[2018-10-30 10:53] VITALS: BP_SYST 143
[2018-10-30 10:58] VITALS: BP_SYST 127
[2018-10-30] MEDS: BALSAM PERU/CASTOR OIL 60 GM OINT...G. TP SCH (14:37)
[2018-10-30 16:13] VITALS: BP_SYST 136
[2018-10-30 20:00] VITALS: BP_SYST 129; BP_SYST 153
[2018-10-30] MEDS: ATORVASTATIN 20 MG TABLET PO SCH (20:56)
[2018-10-30] MEDS: DONEPEZIL HCL 5 MG TABLET (ARICEPT) PO SCH (20:58)
[2018-10-31 00:16] VITALS: BP_SYST 145
[2018-10-31] MEDS: 0.45% NACL 1,000 ML IV SCH ×2 (02:35→16:40)
[2018-10-31 08:00] VITALS: BP_SYST 135
[2018-10-31] MEDS: LACTOBACILLUS RHAMNOSUS GG 1 CAP CAPSULE PO SCH ×2 (08:32→21:49)
[2018-10-31] MEDS: levETIRAcetam 500 MG TABLET PO SCH ×2 (08:32→21:50)
[2018-10-31] MEDS: LACOSAMIDE 100 MG TABLET PO SCH ×2 (08:32→21:49)
[2018-10-31] MEDS: MULTIVITS,CA,MINERALS/IRON/FA 1 TABLET PO SCH ×2 (08:32→21:49)
[2018-10-31] MEDS: CHOLECALCIFEROL (VITAMIN D3) 2,000 UNIT TABLET PO SCH (08:33)
[2018-10-31] MEDS: FAMOTIDINE 20 MG TABLET PO SCH (08:33)
[2018-10-31] MEDS: APIXABAN 2.5 MG TABLET PO SCH ×2 (08:33→21:53)
[2018-10-31] MEDS: DILTIAZEM HCL 30 MG TABLET PO SCH ×4 (08:34→21:50)
[2018-10-31] MEDS: LATANOPROST 2.5 ML DROPS (XALATAN) OP SCH (08:35)
[2018-10-31] MEDS: DOCUSATE SODIUM 100 MG/10 ML UDC PO SCH (08:35)
[2018-10-31] MEDS: METOPROLOL SUCCINATE 50 MG TAB.SR.24H (TOPROL XL) PO SCH ×2 (08:35→21:51)
[2018-10-31 12:02] VITALS: BP_SYST 137
[2018-10-31 16:08] VITALS: BP_SYST 134
[2018-10-31 19:49] VITALS: BP_SYST 167
[2018-10-31 20:00] VITALS: BP_SYST 160
[2018-10-31] MEDS: ATORVASTATIN 20 MG TABLET PO SCH (21:49)
[2018-10-31] MEDS: DONEPEZIL HCL 5 MG TABLET (ARICEPT) PO SCH (21:50)
[2018-11-01 00:25] VITALS: BP_SYST 130
[2018-11-01] MEDS: 0.45% NACL 1,000 ML IV SCH ×2 (05:02→21:15)
[2018-11-01] MEDS: BALSAM PERU/CASTOR OIL 60 GM OINT...G. TP SCH (08:55)
[2018-11-01] MEDS: APIXABAN 2.5 MG TABLET PO SCH ×2 (08:56→21:15)
[2018-11-01] MEDS: CHOLECALCIFEROL (VITAMIN D3) 2,000 UNIT TABLET PO SCH (08:56)
[2018-11-01] MEDS: levETIRAcetam 500 MG TABLET PO SCH ×2 (08:56→21:14)
[2018-11-01] MEDS: MULTIVITS,CA,MINERALS/IRON/FA 1 TABLET PO SCH ×2 (08:57→21:14)
[2018-11-01] MEDS: DILTIAZEM HCL 30 MG TABLET PO SCH ×4 (08:57→21:25)
[2018-11-01] MEDS: FAMOTIDINE 20 MG TABLET PO SCH (08:57)
[2018-11-01] MEDS: LACOSAMIDE 100 MG TABLET PO SCH ×2 (08:57→21:14)
[2018-11-01] MEDS: METOPROLOL SUCCINATE 50 MG TAB.SR.24H (TOPROL XL) PO SCH ×2 (08:58→21:25)
[2018-11-01] MEDS: DOCUSATE SODIUM 100 MG/10 ML UDC PO SCH (08:58)
[2018-11-01] MEDS: LATANOPROST 2.5 ML DROPS (XALATAN) OP SCH (08:58)
[2018-11-01] MEDS: LACTOBACILLUS RHAMNOSUS GG 1 CAP CAPSULE PO SCH ×2 (09:02→21:14)
[2018-11-01 11:25] VITALS: BP_SYST 144
[2018-11-01 15:24] VITALS: BP_SYST 151
[2018-11-01 20:00] VITALS: BP_SYST 156
[2018-11-01] MEDS: ATORVASTATIN 20 MG TABLET PO SCH (21:14)
[2018-11-01] MEDS: DONEPEZIL HCL 5 MG TABLET (ARICEPT) PO SCH (21:14)
[2018-11-01] MEDS: INSULIN REGULAR, HUMAN 100 UNITS/ML, 10 ML VIAL (novoLIN R) SUBCUT PRN (21:21)
[2018-11-02 00:38] VITALS: BP_SYST 147
[2018-11-02] MEDS: INSULIN REGULAR, HUMAN 100 UNITS/ML, 10 ML VIAL (novoLIN R) SUBCUT PRN (06:07)
[2018-11-02 08:00] VITALS: BP_SYST 145
[2018-11-02] MEDS: LATANOPROST 2.5 ML DROPS (XALATAN) OP SCH (08:51)
[2018-11-02] MEDS: LACOSAMIDE 100 MG TABLET PO SCH ×2 (08:51→21:10)
[2018-11-02] MEDS: METOPROLOL SUCCINATE 50 MG TAB.SR.24H (TOPROL XL) PO SCH ×2 (08:52→21:09)
[2018-11-02] MEDS: levETIRAcetam 500 MG TABLET PO SCH ×2 (08:52→21:10)
[2018-11-02] MEDS: LACTOBACILLUS RHAMNOSUS GG 1 CAP CAPSULE PO SCH ×2 (08:52→21:12)
[2018-11-02] MEDS: FAMOTIDINE 20 MG TABLET PO SCH (08:52)
[2018-11-02] MEDS: DILTIAZEM HCL 30 MG TABLET PO SCH ×4 (08:53→21:11)
[2018-11-02] MEDS: CHOLECALCIFEROL (VITAMIN D3) 2,000 UNIT TABLET PO SCH (08:53)
[2018-11-02] MEDS: MULTIVITS,CA,MINERALS/IRON/FA 1 TABLET PO SCH ×2 (08:53→21:09)
[2018-11-02] MEDS: DOCUSATE SODIUM 100 MG/10 ML UDC PO SCH (08:53)
[2018-11-02] MEDS: BALSAM PERU/CASTOR OIL 60 GM OINT...G. TP SCH (08:54)
[2018-11-02] MEDS: APIXABAN 2.5 MG TABLET PO SCH ×2 (08:54→21:13)
[2018-11-02] MEDS: 0.45% NACL 1,000 ML IV SCH ×2 (09:33→21:11)
[2018-11-02 11:36] VITALS: BP_SYST 138
[2018-11-02 14:01] VITALS: BP_SYST 138
[2018-11-02 15:33] VITALS: BP_SYST 145
[2018-11-02 20:25] VITALS: BP_SYST 137
[2018-11-02] MEDS: ATORVASTATIN 20 MG TABLET PO SCH (21:10)
[2018-11-02] MEDS: DONEPEZIL HCL 5 MG TABLET (ARICEPT) PO SCH (21:11)
[2018-11-03 00:03] VITALS: BP_SYST 147
[2018-11-03 06:24] LABS: BASOPHILS % (AUTO) 0.6 % (0.0-2.0); EOSINOPHILS # (AUTO) 0.8 K/uL (0.0-0.4); EOSINOPHILS % (AUTO) 10.2 % (0.0-4.0); HEMATOCRIT 30.4 % (36-54); HEMOGLOBIN 9.7 g/dL (14.0-18.0); LYMPHOCYTES # (AUTO) 1.5 K/uL (1.0-5.5); LYMPHOCYTES % (AUTO) 18.7 % (20.5-51.5); MEAN CORPUSCULAR HEMOGLOBIN 29 pg (27-31); MEAN CORPUSCULAR HGB CONC 32 % (32-36); MEAN CORPUSCULAR VOLUME 90 fL (79.0-98.0); MONOCYTES # (AUTO) 0.9 K/uL (0.0-1.0); MONOCYTES % (AUTO) 10.8 % (1.7-9.3); NEUTROPHILS # (AUTO) 4.9 K/uL (1.8-7.7); NEUTROPHILS % (AUTO) 59.7 % (40.0-70.0); PLATELET COUNT (AUTO) 467 K/uL (130-430); RED BLOOD CELL COUNT(AUTO) 3.37 MIL/uL (4.2-6.2); RED CELL DISTRIBUTION WIDTH 18.4 % (9.0-15.0); WHITE BLOOD COUNT (AUTO) 8.2 K/uL (4.8-10.8)
[2018-11-03 06:38] LABS: ANION GAP 6 (5-15); CALCIUM 9.1 mg/dL (8.4-11.0); CHLORIDE 103 mmol/L (98-107); CREATININE 1.17 mg/dL (0.55-1.30); GLUCOSE 113 mg/dL (70-99); POTASSIUM 4.1 mmol/L (3.5-5.1); SODIUM SERUM 137 mmol/L (136-145); UREA NITROGEN, BLOOD 46 mg/dL (8-21)
[2018-11-03 08:00] VITALS: BP_SYST 153
[2018-11-03] MEDS: METOPROLOL SUCCINATE 50 MG TAB.SR.24H (TOPROL XL) PO SCH ×2 (08:04→20:54)
[2018-11-03] MEDS: levETIRAcetam 500 MG TABLET PO SCH ×2 (08:04→20:54)
[2018-11-03] MEDS: APIXABAN 2.5 MG TABLET PO SCH ×2 (08:05→20:56)
[2018-11-03] MEDS: LACOSAMIDE 100 MG TABLET PO SCH ×2 (08:05→20:59)
[2018-11-03] MEDS: MULTIVITS,CA,MINERALS/IRON/FA 1 TABLET PO SCH ×2 (08:05→20:54)
[2018-11-03] MEDS: DILTIAZEM HCL 30 MG TABLET PO SCH ×4 (08:05→20:53)
[2018-11-03] MEDS: FAMOTIDINE 20 MG TABLET PO SCH (08:05)
[2018-11-03] MEDS: CHOLECALCIFEROL (VITAMIN D3) 2,000 UNIT TABLET PO SCH (08:06)
[2018-11-03] MEDS: DOCUSATE SODIUM 100 MG/10 ML UDC PO SCH (08:06)
[2018-11-03] MEDS: LACTOBACILLUS RHAMNOSUS GG 1 CAP CAPSULE PO SCH ×2 (08:08→20:54)
[2018-11-03] MEDS: LATANOPROST 2.5 ML DROPS (XALATAN) OP SCH (08:08)
[2018-11-03 08:11] VITALS: BP_SYST 148
[2018-11-03] MEDS: BALSAM PERU/CASTOR OIL 60 GM OINT...G. TP SCH (09:27)
[2018-11-03 11:06] VITALS: BP_SYST 135
[2018-11-03] MEDS: 0.45% NACL 1,000 ML IV SCH ×2 (11:45→20:59)
[2018-11-03 16:02] VITALS: BP_SYST 144
[2018-11-03 19:53] VITALS: BP_SYST 143
[2018-11-03] MEDS: ATORVASTATIN 20 MG TABLET PO SCH (20:54)
[2018-11-03] MEDS: DONEPEZIL HCL 5 MG TABLET (ARICEPT) PO SCH (20:54)
[2018-11-04 00:41] VITALS: BP_SYST 149
[2018-11-04 08:01] VITALS: BP_SYST 152
[2018-11-04] MEDS: LATANOPROST 2.5 ML DROPS (XALATAN) OP SCH (08:53)
[2018-11-04] MEDS: DOCUSATE SODIUM 100 MG/10 ML UDC PO SCH (08:53)
[2018-11-04] MEDS: CHOLECALCIFEROL (VITAMIN D3) 2,000 UNIT TABLET PO SCH (08:54)
[2018-11-04] MEDS: LACOSAMIDE 100 MG TABLET PO SCH ×2 (08:54→22:28)
[2018-11-04] MEDS: DILTIAZEM HCL 30 MG TABLET PO SCH ×4 (08:54→21:58)
[2018-11-04] MEDS: APIXABAN 2.5 MG TABLET PO SCH ×2 (08:54→22:00)
[2018-11-04] MEDS: FAMOTIDINE 20 MG TABLET PO SCH (08:55)
[2018-11-04] MEDS: levETIRAcetam 500 MG TABLET PO SCH ×2 (08:55→22:00)
[2018-11-04] MEDS: METOPROLOL SUCCINATE 50 MG TAB.SR.24H (TOPROL XL) PO SCH ×2 (08:55→22:00)
[2018-11-04] MEDS: LACTOBACILLUS RHAMNOSUS GG 1 CAP CAPSULE PO SCH ×2 (08:55→21:56)
[2018-11-04] MEDS: BALSAM PERU/CASTOR OIL 60 GM OINT...G. TP SCH (08:57)
[2018-11-04] MEDS: MULTIVITS,CA,MINERALS/IRON/FA 1 TABLET PO SCH ×2 (08:57→22:00)
[2018-11-04] MEDS: 0.45% NACL 1,000 ML IV SCH ×2 (11:00→23:31)
[2018-11-04 12:02] VITALS: BP_SYST 126
[2018-11-04 16:02] VITALS: BP_SYST 147
[2018-11-04 19:05] VITALS: BP_SYST 133
[2018-11-04] MEDS: ATORVASTATIN 20 MG TABLET PO SCH (21:56)
[2018-11-04] MEDS: DONEPEZIL HCL 5 MG TABLET (ARICEPT) PO SCH (22:00)
[2018-11-04 23:37] VITALS: BP_SYST 142
[2018-11-05 08:00] VITALS: BP_SYST 146
[2018-11-05] MEDS: DOCUSATE SODIUM 100 MG/10 ML UDC PO SCH (09:09)
[2018-11-05] MEDS: CHOLECALCIFEROL (VITAMIN D3) 2,000 UNIT TABLET PO SCH (09:09)
[2018-11-05] MEDS: LACTOBACILLUS RHAMNOSUS GG 1 CAP CAPSULE PO SCH ×2 (09:09→20:49)
[2018-11-05] MEDS: levETIRAcetam 500 MG TABLET PO SCH ×2 (09:09→20:49)
[2018-11-05] MEDS: LACOSAMIDE 100 MG TABLET PO SCH ×2 (09:09→20:49)
[2018-11-05] MEDS: DILTIAZEM HCL 30 MG TABLET PO SCH ×4 (09:10→20:50)
[2018-11-05] MEDS: FAMOTIDINE 20 MG TABLET PO SCH (09:10)
[2018-11-05] MEDS: MULTIVITS,CA,MINERALS/IRON/FA 1 TABLET PO SCH ×2 (09:10→20:50)
[2018-11-05] MEDS: METOPROLOL SUCCINATE 50 MG TAB.SR.24H (TOPROL XL) PO SCH ×2 (09:10→20:51)
[2018-11-05] MEDS: BALSAM PERU/CASTOR OIL 60 GM OINT...G. TP SCH (09:11)
[2018-11-05] MEDS: APIXABAN 2.5 MG TABLET PO SCH ×2 (09:12→20:49)
[2018-11-05] MEDS: LATANOPROST 2.5 ML DROPS (XALATAN) OP SCH (11:30)
[2018-11-05] MEDS: 0.45% NACL 1,000 ML IV SCH ×2 (11:31→23:37)
[2018-11-05 12:00] VITALS: BP_SYST 157
[2018-11-05 16:22] VITALS: BP_SYST 129
[2018-11-05 17:00] VITALS: BP_SYST 129
[2018-11-05 20:00] VITALS: BP_SYST 132
[2018-11-05] MEDS: ATORVASTATIN 20 MG TABLET PO SCH (20:49)
[2018-11-05] MEDS: DONEPEZIL HCL 5 MG TABLET (ARICEPT) PO SCH (20:50)
[2018-11-06 00:02] VITALS: BP_SYST 109
[2018-11-06 07:55] VITALS: BP_SYST 154
[2018-11-06] MEDS: LATANOPROST 2.5 ML DROPS (XALATAN) OP SCH (09:21)
[2018-11-06] MEDS: levETIRAcetam 500 MG TABLET PO SCH ×2 (09:21→21:54)
[2018-11-06] MEDS: BALSAM PERU/CASTOR OIL 60 GM OINT...G. TP SCH (09:21)
[2018-11-06] MEDS: DOCUSATE SODIUM 100 MG/10 ML UDC PO SCH (09:21)
[2018-11-06] MEDS: DILTIAZEM HCL 30 MG TABLET PO SCH ×4 (09:22→21:55)
[2018-11-06] MEDS: METOPROLOL SUCCINATE 50 MG TAB.SR.24H (TOPROL XL) PO SCH ×2 (09:22→21:55)
[2018-11-06] MEDS: APIXABAN 2.5 MG TABLET PO SCH ×2 (09:23→22:01)
[2018-11-06] MEDS: FAMOTIDINE 20 MG TABLET PO SCH (09:24)
[2018-11-06] MEDS: LACOSAMIDE 100 MG TABLET PO SCH ×2 (09:24→21:56)
[2018-11-06] MEDS: LACTOBACILLUS RHAMNOSUS GG 1 CAP CAPSULE PO SCH ×2 (09:24→21:56)
[2018-11-06] MEDS: MULTIVITS,CA,MINERALS/IRON/FA 1 TABLET PO SCH ×2 (09:24→21:56)
[2018-11-06] MEDS: CHOLECALCIFEROL (VITAMIN D3) 2,000 UNIT TABLET PO SCH (09:25)
[2018-11-06 12:29] VITALS: BP_SYST 113
[2018-11-06] MEDS: 0.45% NACL 1,000 ML IV SCH (12:31)
[2018-11-06 16:42] VITALS: BP_SYST 156
[2018-11-06 20:58] VITALS: BP_SYST 137
[2018-11-06] MEDS: ATORVASTATIN 20 MG TABLET PO SCH (21:55)
[2018-11-06] MEDS: DONEPEZIL HCL 5 MG TABLET (ARICEPT) PO SCH (21:56)
[2018-11-07 00:03] VITALS: BP_SYST 128
[2018-11-07] MEDS: 0.45% NACL 1,000 ML IV SCH ×2 (00:49→15:22)
[2018-11-07 08:00] VITALS: BP_SYST 139
[2018-11-07] MEDS: FAMOTIDINE 20 MG TABLET PO SCH (10:06)
[2018-11-07] MEDS: LACTOBACILLUS RHAMNOSUS GG 1 CAP CAPSULE PO SCH ×2 (10:06→20:58)
[2018-11-07] MEDS: CHOLECALCIFEROL (VITAMIN D3) 2,000 UNIT TABLET PO SCH (10:07)
[2018-11-07] MEDS: MULTIVITS,CA,MINERALS/IRON/FA 1 TABLET PO SCH ×2 (10:07→20:58)
[2018-11-07] MEDS: levETIRAcetam 500 MG TABLET PO SCH ×2 (10:07→20:58)
[2018-11-07] MEDS: LACOSAMIDE 100 MG TABLET PO SCH ×2 (10:07→20:58)
[2018-11-07] MEDS: LATANOPROST 2.5 ML DROPS (XALATAN) OP SCH (10:08)
[2018-11-07] MEDS: DOCUSATE SODIUM 100 MG/10 ML UDC PO SCH (10:08)
[2018-11-07] MEDS: BALSAM PERU/CASTOR OIL 60 GM OINT...G. TP SCH (10:09)
[2018-11-07] MEDS: METOPROLOL SUCCINATE 50 MG TAB.SR.24H (TOPROL XL) PO SCH ×2 (10:25→20:57)
[2018-11-07] MEDS: DILTIAZEM HCL 30 MG TABLET PO SCH ×4 (10:26→20:58)
[2018-11-07] MEDS: APIXABAN 2.5 MG TABLET PO SCH ×2 (10:27→21:04)
[2018-11-07 12:00] VITALS: BP_SYST 148
[2018-11-07 16:16] VITALS: BP_SYST 130
[2018-11-07 20:00] VITALS: BP_SYST 125
[2018-11-07] MEDS: DONEPEZIL HCL 5 MG TABLET (ARICEPT) PO SCH (20:58)
[2018-11-07] MEDS: ATORVASTATIN 20 MG TABLET PO SCH (20:58)
[2018-11-08] VITALS (7 sets, daily range): BP systolic 114–146
[2018-11-08] MEDS: 0.45% NACL 1,000 ML IV SCH ×2 (02:31→14:16)
[2018-11-08 07:05] LABS: BASOPHILS # (AUTO) 0.1 K/uL (0.0-0.2); BASOPHILS % (AUTO) 0.5 % (0.0-2.0); EOSINOPHILS # (AUTO) 0.6 K/uL (0.0-0.4); EOSINOPHILS % (AUTO) 5.9 % (0.0-4.0); HEMATOCRIT 28.9 % (36-54); HEMOGLOBIN 9.4 g/dL (14.0-18.0); LYMPHOCYTES # (AUTO) 1.7 K/uL (1.0-5.5); LYMPHOCYTES % (AUTO) 17.1 % (20.5-51.5); MEAN CORPUSCULAR HEMOGLOBIN 29 pg (27-31); MEAN CORPUSCULAR HGB CONC 33 % (32-36); MEAN CORPUSCULAR VOLUME 90 fL (79.0-98.0); NEUTROPHILS # (AUTO) 6.7 K/uL (1.8-7.7); NEUTROPHILS % (AUTO) 66.5 % (40.0-70.0); PLATELET COUNT (AUTO) 370 K/uL (130-430); RED BLOOD CELL COUNT(AUTO) 3.22 MIL/uL (4.2-6.2); RED CELL DISTRIBUTION WIDTH 17.4 % (9.0-15.0)
[2018-11-08 07:17] LABS: ANION GAP 6 (5-15); CALCIUM 8.9 mg/dL (8.4-11.0); CHLORIDE 101 mmol/L (98-107); CREATININE 1.14 mg/dL (0.55-1.30); GLUCOSE 119 mg/dL (70-99); POTASSIUM 3.9 mmol/L (3.5-5.1); SODIUM SERUM 134 mmol/L (136-145); UREA NITROGEN, BLOOD 48 mg/dL (8-21)
[2018-11-08] MEDS: DOCUSATE SODIUM 100 MG/10 ML UDC PO SCH (09:21)
[2018-11-08] MEDS: METOPROLOL SUCCINATE 50 MG TAB.SR.24H (TOPROL XL) PO SCH ×2 (09:21→21:00)
[2018-11-08] MEDS: LACOSAMIDE 100 MG TABLET PO SCH ×2 (09:22→21:00)
[2018-11-08] MEDS: APIXABAN 2.5 MG TABLET PO SCH ×2 (09:22→20:59)
[2018-11-08] MEDS: FAMOTIDINE 20 MG TABLET PO SCH (09:23)
[2018-11-08] MEDS: CHOLECALCIFEROL (VITAMIN D3) 2,000 UNIT TABLET PO SCH (09:23)
[2018-11-08] MEDS: LACTOBACILLUS RHAMNOSUS GG 1 CAP CAPSULE PO SCH ×2 (09:23→21:00)
[2018-11-08] MEDS: DILTIAZEM HCL 30 MG TABLET PO SCH ×4 (09:23→20:58)
[2018-11-08] MEDS: levETIRAcetam 500 MG TABLET PO SCH ×2 (09:23→20:58)
[2018-11-08] MEDS: MULTIVITS,CA,MINERALS/IRON/FA 1 TABLET PO SCH ×2 (09:23→20:58)
[2018-11-08] MEDS: BALSAM PERU/CASTOR OIL 60 GM OINT...G. TP SCH (09:24)
[2018-11-08] MEDS: LATANOPROST 2.5 ML DROPS (XALATAN) OP SCH (09:25)
[2018-11-08] MEDS: ATORVASTATIN 20 MG TABLET PO SCH (20:58)
[2018-11-08] MEDS: DONEPEZIL HCL 5 MG TABLET (ARICEPT) PO SCH (21:00)
[2018-11-09] MEDS: 0.45% NACL 1,000 ML IV SCH ×2 (03:20→16:31)
[2018-11-09 08:00] VITALS: BP_SYST 148
[2018-11-09] MEDS: DOCUSATE SODIUM 100 MG/10 ML UDC PO SCH (09:54)
[2018-11-09] MEDS: DILTIAZEM HCL 30 MG TABLET PO SCH ×4 (09:54→21:43)
[2018-11-09] MEDS: FAMOTIDINE 20 MG TABLET PO SCH (09:54)
[2018-11-09] MEDS: LATANOPROST 2.5 ML DROPS (XALATAN) OP SCH (09:54)
[2018-11-09] MEDS: levETIRAcetam 500 MG TABLET PO SCH ×2 (09:54→21:42)
[2018-11-09] MEDS: LACOSAMIDE 100 MG TABLET PO SCH ×2 (09:54→21:42)
[2018-11-09] MEDS: MULTIVITS,CA,MINERALS/IRON/FA 1 TABLET PO SCH ×2 (09:55→21:39)
[2018-11-09] MEDS: CHOLECALCIFEROL (VITAMIN D3) 2,000 UNIT TABLET PO SCH (09:55)
[2018-11-09] MEDS: LACTOBACILLUS RHAMNOSUS GG 1 CAP CAPSULE PO SCH ×2 (09:55→21:40)
[2018-11-09] MEDS: METOPROLOL SUCCINATE 50 MG TAB.SR.24H (TOPROL XL) PO SCH ×2 (09:55→21:43)
[2018-11-09] MEDS: BALSAM PERU/CASTOR OIL 60 GM OINT...G. TP SCH (09:56)
[2018-11-09] MEDS: APIXABAN 2.5 MG TABLET PO SCH ×2 (09:56→21:44)
[2018-11-09 13:40] VITALS: BP_SYST 123
[2018-11-09 17:13] VITALS: BP_SYST 125
[2018-11-09 19:05] VITALS: BP_SYST 119
[2018-11-09] MEDS: DONEPEZIL HCL 5 MG TABLET (ARICEPT) PO SCH (21:42)
[2018-11-09] MEDS: ATORVASTATIN 20 MG TABLET PO SCH (21:42)
[2018-11-10 00:20] VITALS: BP_SYST 117
[2018-11-10] MEDS: 0.45% NACL 1,000 ML IV SCH ×2 (04:42→16:52)
[2018-11-10 07:58] VITALS: BP_SYST 130
[2018-11-10] MEDS: DOCUSATE SODIUM 100 MG/10 ML UDC PO SCH (08:39)
[2018-11-10] MEDS: LACTOBACILLUS RHAMNOSUS GG 1 CAP CAPSULE PO SCH ×2 (08:40→20:59)
[2018-11-10] MEDS: CHOLECALCIFEROL (VITAMIN D3) 2,000 UNIT TABLET PO SCH (08:40)
[2018-11-10] MEDS: LACOSAMIDE 100 MG TABLET PO SCH ×2 (08:40→21:00)
[2018-11-10] MEDS: FAMOTIDINE 20 MG TABLET PO SCH (08:41)
[2018-11-10] MEDS: MULTIVITS,CA,MINERALS/IRON/FA 1 TABLET PO SCH ×2 (08:41→20:59)
[2018-11-10] MEDS: APIXABAN 2.5 MG TABLET PO SCH ×2 (08:43→21:01)
[2018-11-10] MEDS: DILTIAZEM HCL 30 MG TABLET PO SCH ×4 (08:46→20:58)
[2018-11-10] MEDS: levETIRAcetam 500 MG TABLET PO SCH ×2 (08:46→20:59)
[2018-11-10] MEDS: METOPROLOL SUCCINATE 50 MG TAB.SR.24H (TOPROL XL) PO SCH ×2 (08:46→21:00)
[2018-11-10] MEDS: BALSAM PERU/CASTOR OIL 60 GM OINT...G. TP SCH (08:47)
[2018-11-10] MEDS: LATANOPROST 2.5 ML DROPS (XALATAN) OP SCH (08:47)
[2018-11-10 12:02] VITALS: BP_SYST 118
[2018-11-10 16:02] VITALS: BP_SYST 114
[2018-11-10 19:00] VITALS: BP_SYST 133
[2018-11-10 20:00] VITALS: BP_SYST 133
[2018-11-10] MEDS: DONEPEZIL HCL 5 MG TABLET (ARICEPT) PO SCH (20:58)
[2018-11-10] MEDS: ATORVASTATIN 20 MG TABLET PO SCH (20:59)
[2018-11-11 00:27] VITALS: BP_SYST 155
[2018-11-11] MEDS: 0.45% NACL 1,000 ML IV SCH ×2 (06:11→18:53)
[2018-11-11 08:00] VITALS: BP_SYST 161
[2018-11-11 08:37] VITALS: BP_SYST 155
[2018-11-11] MEDS: CHOLECALCIFEROL (VITAMIN D3) 2,000 UNIT TABLET PO SCH (09:32)
[2018-11-11] MEDS: DOCUSATE SODIUM 100 MG/10 ML UDC PO SCH (09:32)
[2018-11-11] MEDS: LACTOBACILLUS RHAMNOSUS GG 1 CAP CAPSULE PO SCH ×2 (09:32→21:03)
[2018-11-11] MEDS: MULTIVITS,CA,MINERALS/IRON/FA 1 TABLET PO SCH ×2 (09:32→21:01)
[2018-11-11] MEDS: levETIRAcetam 500 MG TABLET PO SCH ×2 (09:32→21:03)
[2018-11-11] MEDS: LATANOPROST 2.5 ML DROPS (XALATAN) OP SCH (09:32)
[2018-11-11] MEDS: LACOSAMIDE 100 MG TABLET PO SCH ×2 (09:32→21:00)
[2018-11-11] MEDS: FAMOTIDINE 20 MG TABLET PO SCH (09:32)
[2018-11-11] MEDS: BALSAM PERU/CASTOR OIL 60 GM OINT...G. TP SCH (09:32)
[2018-11-11] MEDS: APIXABAN 2.5 MG TABLET PO SCH ×2 (09:33→21:02)
[2018-11-11] MEDS: METOPROLOL SUCCINATE 50 MG TAB.SR.24H (TOPROL XL) PO SCH ×2 (09:34→21:01)
[2018-11-11] MEDS: DILTIAZEM HCL 30 MG TABLET PO SCH ×4 (09:34→21:01)
[2018-11-11 12:13] VITALS: BP_SYST 109
[2018-11-11 16:11] VITALS: BP_SYST 118
[2018-11-11 19:49] VITALS: BP_SYST 135
[2018-11-11] MEDS: ATORVASTATIN 20 MG TABLET PO SCH (21:00)
[2018-11-11] MEDS: DONEPEZIL HCL 5 MG TABLET (ARICEPT) PO SCH (21:00)
[2018-11-12 00:26] VITALS: BP_SYST 118
[2018-11-12] MEDS: 0.45% NACL 1,000 ML IV SCH ×2 (05:42→15:57)
[2018-11-12 07:57] VITALS: BP_SYST 123
[2018-11-12] MEDS: DOCUSATE SODIUM 100 MG/10 ML UDC PO SCH (09:22)
[2018-11-12] MEDS: levETIRAcetam 500 MG TABLET PO SCH ×2 (09:22→22:32)
[2018-11-12] MEDS: DILTIAZEM HCL 30 MG TABLET PO SCH ×4 (09:23→22:34)
[2018-11-12] MEDS: MULTIVITS,CA,MINERALS/IRON/FA 1 TABLET PO SCH ×2 (09:23→22:32)
[2018-11-12] MEDS: METOPROLOL SUCCINATE 50 MG TAB.SR.24H (TOPROL XL) PO SCH ×2 (09:24→22:33)
[2018-11-12] MEDS: LACTOBACILLUS RHAMNOSUS GG 1 CAP CAPSULE PO SCH ×2 (09:24→22:33)
[2018-11-12] MEDS: LATANOPROST 2.5 ML DROPS (XALATAN) OP SCH (09:25)
[2018-11-12] MEDS: LACOSAMIDE 100 MG TABLET PO SCH ×2 (09:25→22:34)
[2018-11-12] MEDS: FAMOTIDINE 20 MG TABLET PO SCH (09:25)
[2018-11-12] MEDS: CHOLECALCIFEROL (VITAMIN D3) 2,000 UNIT TABLET PO SCH (09:25)
[2018-11-12] MEDS: APIXABAN 2.5 MG TABLET PO SCH ×2 (09:26→22:35)
[2018-11-12] MEDS: BALSAM PERU/CASTOR OIL 60 GM OINT...G. TP SCH (09:27)
[2018-11-12 11:33] VITALS: BP_SYST 161
[2018-11-12 15:04] VITALS: BP_SYST 145
[2018-11-12 20:00] VITALS: BP_SYST 137
[2018-11-12 21:00] VITALS: BP_SYST 135
[2018-11-12] MEDS: ATORVASTATIN 20 MG TABLET PO SCH (22:32)
[2018-11-12] MEDS: DONEPEZIL HCL 5 MG TABLET (ARICEPT) PO SCH (22:34)
[2018-11-13 00:59] VITALS: BP_SYST 130
[2018-11-13] MEDS: 0.45% NACL 1,000 ML IV SCH ×3 (05:39→20:00)
[2018-11-13 08:15] VITALS: BP_SYST 147
[2018-11-13] MEDS: BALSAM PERU/CASTOR OIL 60 GM OINT...G. TP SCH ×2 (09:00→11:36)
[2018-11-13] MEDS: DOCUSATE SODIUM 100 MG/10 ML UDC PO SCH (09:58)
[2018-11-13] MEDS: LACOSAMIDE 100 MG TABLET PO SCH ×2 (09:58→20:51)
[2018-11-13] MEDS: APIXABAN 2.5 MG TABLET PO SCH ×2 (09:59→20:57)
[2018-11-13] MEDS: levETIRAcetam 500 MG TABLET PO SCH ×2 (10:00→20:51)
[2018-11-13] MEDS: MULTIVITS,CA,MINERALS/IRON/FA 1 TABLET PO SCH ×2 (10:00→20:51)
[2018-11-13] MEDS: LACTOBACILLUS RHAMNOSUS GG 1 CAP CAPSULE PO SCH ×2 (10:00→20:51)
[2018-11-13] MEDS: CHOLECALCIFEROL (VITAMIN D3) 2,000 UNIT TABLET PO SCH (10:00)
[2018-11-13] MEDS: FAMOTIDINE 20 MG TABLET PO SCH (10:00)
[2018-11-13] MEDS: DILTIAZEM HCL 30 MG TABLET PO SCH ×4 (10:01→20:56)
[2018-11-13] MEDS: METOPROLOL SUCCINATE 50 MG TAB.SR.24H (TOPROL XL) PO SCH ×2 (10:01→20:56)
[2018-11-13] MEDS: LATANOPROST 2.5 ML DROPS (XALATAN) OP SCH (10:02)
[2018-11-13 12:56] VITALS: BP_SYST 155
[2018-11-13 15:14] VITALS: BP_SYST 144
[2018-11-13 20:00] VITALS: BP_SYST 137
[2018-11-13] MEDS: ATORVASTATIN 20 MG TABLET PO SCH (20:51)
[2018-11-13] MEDS: DONEPEZIL HCL 5 MG TABLET (ARICEPT) PO SCH (20:51)
[2018-11-14 00:54] VITALS: BP_SYST 131
[2018-11-14] MEDS: 0.45% NACL 1,000 ML IV SCH ×2 (04:43→17:09)
[2018-11-14 09:07] VITALS: BP_SYST 132
[2018-11-14] MEDS: FAMOTIDINE 20 MG TABLET PO SCH (09:11)
[2018-11-14] MEDS: CHOLECALCIFEROL (VITAMIN D3) 2,000 UNIT TABLET PO SCH (09:11)
[2018-11-14] MEDS: LATANOPROST 2.5 ML DROPS (XALATAN) OP SCH (09:11)
[2018-11-14] MEDS: levETIRAcetam 500 MG TABLET PO SCH ×2 (09:11→20:46)
[2018-11-14] MEDS: DOCUSATE SODIUM 100 MG/10 ML UDC PO SCH (09:11)
[2018-11-14] MEDS: MULTIVITS,CA,MINERALS/IRON/FA 1 TABLET PO SCH ×2 (09:11→20:46)
[2018-11-14] MEDS: LACTOBACILLUS RHAMNOSUS GG 1 CAP CAPSULE PO SCH ×2 (09:11→20:45)
[2018-11-14] MEDS: LACOSAMIDE 100 MG TABLET PO SCH ×2 (09:11→20:46)
[2018-11-14] MEDS: DILTIAZEM HCL 30 MG TABLET PO SCH ×4 (09:12→20:45)
[2018-11-14] MEDS: APIXABAN 2.5 MG TABLET PO SCH ×2 (09:13→20:47)
[2018-11-14] MEDS: METOPROLOL SUCCINATE 50 MG TAB.SR.24H (TOPROL XL) PO SCH ×2 (09:13→20:45)
[2018-11-14] MEDS: BALSAM PERU/CASTOR OIL 60 GM OINT...G. TP SCH (09:14)
[2018-11-14 12:31] VITALS: BP_SYST 149
[2018-11-14 16:39] VITALS: BP_SYST 98
[2018-11-14 20:11] VITALS: BP_SYST 128
[2018-11-14] MEDS: ATORVASTATIN 20 MG TABLET PO SCH (20:44)
[2018-11-14] MEDS: DONEPEZIL HCL 5 MG TABLET (ARICEPT) PO SCH (20:45)
[2018-11-15 00:51] VITALS: BP_SYST 109
[2018-11-15] MEDS: 0.45% NACL 1,000 ML IV SCH ×2 (05:20→17:12)
[2018-11-15 08:02] VITALS: BP_SYST 139
[2018-11-15] MEDS: DOCUSATE SODIUM 100 MG/10 ML UDC PO SCH (08:42)
[2018-11-15] MEDS: levETIRAcetam 500 MG TABLET PO SCH ×2 (08:42→21:06)
[2018-11-15] MEDS: MULTIVITS,CA,MINERALS/IRON/FA 1 TABLET PO SCH ×2 (08:42→21:06)
[2018-11-15] MEDS: CHOLECALCIFEROL (VITAMIN D3) 2,000 UNIT TABLET PO SCH (08:42)
[2018-11-15] MEDS: LACTOBACILLUS RHAMNOSUS GG 1 CAP CAPSULE PO SCH ×2 (08:42→21:06)
[2018-11-15] MEDS: METOPROLOL SUCCINATE 50 MG TAB.SR.24H (TOPROL XL) PO SCH ×2 (08:42→21:05)
[2018-11-15] MEDS: LACOSAMIDE 100 MG TABLET PO SCH ×2 (08:42→21:05)
[2018-11-15] MEDS: FAMOTIDINE 20 MG TABLET PO SCH (08:42)
[2018-11-15] MEDS: APIXABAN 2.5 MG TABLET PO SCH ×2 (08:43→21:07)
[2018-11-15] MEDS: DILTIAZEM HCL 30 MG TABLET PO SCH ×4 (08:43→21:05)
[2018-11-15] MEDS: LATANOPROST 2.5 ML DROPS (XALATAN) OP SCH (08:43)
[2018-11-15] MEDS: BALSAM PERU/CASTOR OIL 60 GM OINT...G. TP SCH (08:44)
[2018-11-15 11:27] VITALS: BP_SYST 148
[2018-11-15 15:35] VITALS: BP_SYST 142
[2018-11-15 20:00] VITALS: BP_SYST 150
[2018-11-15] MEDS: ATORVASTATIN 20 MG TABLET PO SCH (21:06)
[2018-11-15] MEDS: DONEPEZIL HCL 5 MG TABLET (ARICEPT) PO SCH (21:06)
[2018-11-16 04:04] VITALS: BP_SYST 149
[2018-11-16] MEDS: 0.45% NACL 1,000 ML IV SCH ×2 (05:40→17:59)
[2018-11-16 08:00] VITALS: BP_SYST 136
[2018-11-16] MEDS: LATANOPROST 2.5 ML DROPS (XALATAN) OP SCH (10:17)
[2018-11-16] MEDS: DOCUSATE SODIUM 100 MG/10 ML UDC PO SCH (10:17)
[2018-11-16] MEDS: LACOSAMIDE 100 MG TABLET PO SCH ×2 (10:17→21:36)
[2018-11-16] MEDS: DILTIAZEM HCL 30 MG TABLET PO SCH ×4 (10:18→21:37)
[2018-11-16] MEDS: LACTOBACILLUS RHAMNOSUS GG 1 CAP CAPSULE PO SCH ×2 (10:18→21:36)
[2018-11-16] MEDS: FAMOTIDINE 20 MG TABLET PO SCH (10:18)
[2018-11-16] MEDS: CHOLECALCIFEROL (VITAMIN D3) 2,000 UNIT TABLET PO SCH (10:18)
[2018-11-16] MEDS: METOPROLOL SUCCINATE 50 MG TAB.SR.24H (TOPROL XL) PO SCH ×2 (10:18→21:38)
[2018-11-16] MEDS: levETIRAcetam 500 MG TABLET PO SCH ×2 (10:18→21:38)
[2018-11-16] MEDS: MULTIVITS,CA,MINERALS/IRON/FA 1 TABLET PO SCH ×2 (10:18→21:36)
[2018-11-16] MEDS: APIXABAN 2.5 MG TABLET PO SCH ×2 (10:19→21:37)
[2018-11-16] MEDS: BALSAM PERU/CASTOR OIL 60 GM OINT...G. TP SCH (10:20)
[2018-11-16 11:17] VITALS: BP_SYST 144
[2018-11-16 15:24] VITALS: BP_SYST 137
[2018-11-16 15:56] VITALS: BP_SYST 137
[2018-11-16 20:00] VITALS: BP_SYST 125
[2018-11-16] MEDS: ATORVASTATIN 20 MG TABLET PO SCH (21:36)
[2018-11-16] MEDS: DONEPEZIL HCL 5 MG TABLET (ARICEPT) PO SCH (21:38)
[2018-11-17 00:33] VITALS: BP_SYST 135
[2018-11-17] MEDS: 0.45% NACL 1,000 ML IV SCH ×2 (06:20→18:09)
[2018-11-17 08:00] VITALS: BP_SYST 125
[2018-11-17] MEDS: DILTIAZEM HCL 30 MG TABLET PO SCH ×4 (10:42→21:12)
[2018-11-17] MEDS: DOCUSATE SODIUM 100 MG/10 ML UDC PO SCH (10:42)
[2018-11-17] MEDS: CHOLECALCIFEROL (VITAMIN D3) 2,000 UNIT TABLET PO SCH (10:43)
[2018-11-17] MEDS: APIXABAN 2.5 MG TABLET PO SCH ×2 (10:43→21:14)
[2018-11-17] MEDS: METOPROLOL SUCCINATE 50 MG TAB.SR.24H (TOPROL XL) PO SCH ×2 (10:43→21:13)
[2018-11-17] MEDS: FAMOTIDINE 20 MG TABLET PO SCH (10:43)
[2018-11-17] MEDS: MULTIVITS,CA,MINERALS/IRON/FA 1 TABLET PO SCH ×2 (10:44→21:10)
[2018-11-17] MEDS: levETIRAcetam 500 MG TABLET PO SCH ×2 (10:44→21:10)
[2018-11-17] MEDS: LACOSAMIDE 100 MG TABLET PO SCH ×2 (10:44→21:20)
[2018-11-17] MEDS: LACTOBACILLUS RHAMNOSUS GG 1 CAP CAPSULE PO SCH ×2 (10:44→21:20)
[2018-11-17] MEDS: BALSAM PERU/CASTOR OIL 60 GM OINT...G. TP SCH (10:45)
[2018-11-17] MEDS: LATANOPROST 2.5 ML DROPS (XALATAN) OP SCH (11:20)
[2018-11-17 11:32] VITALS: BP_SYST 138
[2018-11-17 15:22] VITALS: BP_SYST 125
[2018-11-17] MEDS: DONEPEZIL HCL 5 MG TABLET (ARICEPT) PO SCH (21:10)
[2018-11-17] MEDS: ATORVASTATIN 20 MG TABLET PO SCH (21:10)
[2018-11-18 00:28] VITALS: BP_SYST 120
[2018-11-18 07:52] LABS: ANION GAP 7 (5-15); CALCIUM 9.1 mg/dL (8.4-11.0); CHLORIDE 104 mmol/L (98-107); CREATININE 1.05 mg/dL (0.55-1.30); GLUCOSE 117 mg/dL (70-99); POTASSIUM 4.3 mmol/L (3.5-5.1); SODIUM SERUM 139 mmol/L (136-145); UREA NITROGEN, BLOOD 39 mg/dL (8-21)
[2018-11-18 07:54] LABS: BASOPHILS # (AUTO) 0.1 K/uL (0.0-0.2); BASOPHILS % (AUTO) 1.2 % (0.0-2.0); EOSINOPHILS # (AUTO) 0.6 K/uL (0.0-0.4); EOSINOPHILS % (AUTO) 6.4 % (0.0-4.0); HEMATOCRIT 27.8 % (36-54); HEMOGLOBIN 9.3 g/dL (14.0-18.0); LYMPHOCYTES % (AUTO) 19.7 % (20.5-51.5); MEAN CORPUSCULAR HEMOGLOBIN 29 pg (27-31); MEAN CORPUSCULAR HGB CONC 33 % (32-36); MEAN CORPUSCULAR VOLUME 88 fL (79.0-98.0); MONOCYTES # (AUTO) 0.9 K/uL (0.0-1.0); MONOCYTES % (AUTO) 8.6 % (1.7-9.3); NEUTROPHILS # (AUTO) 6.4 K/uL (1.8-7.7); NEUTROPHILS % (AUTO) 64.1 % (40.0-70.0); PLATELET COUNT (AUTO) 489 K/uL (130-430); RED BLOOD CELL COUNT(AUTO) 3.16 MIL/uL (4.2-6.2); RED CELL DISTRIBUTION WIDTH 17.1 % (9.0-15.0)
[2018-11-18 08:00] VITALS: BP_SYST 134
[2018-11-18 08:05] LABS: ALANINE AMINOTRANSFERASE 25 U/L (12-78); ALBUMIN 1.7 g/dL (3.4-4.8); ASPARTATE AMINOTRANSFERASE 25 U/L (10-37); TOTAL BILIRUBIN 0.1 mg/dL (0.0-1.0)
[2018-11-18] MEDS: CHOLECALCIFEROL (VITAMIN D3) 2,000 UNIT TABLET PO SCH (09:15)
[2018-11-18] MEDS: DOCUSATE SODIUM 100 MG/10 ML UDC PO SCH (09:15)
[2018-11-18] MEDS: MULTIVITS,CA,MINERALS/IRON/FA 1 TABLET PO SCH ×2 (09:15→20:44)
[2018-11-18] MEDS: LACTOBACILLUS RHAMNOSUS GG 1 CAP CAPSULE PO SCH ×2 (09:16→20:42)
[2018-11-18] MEDS: DILTIAZEM HCL 30 MG TABLET PO SCH ×4 (09:16→20:43)
[2018-11-18] MEDS: levETIRAcetam 500 MG TABLET PO SCH ×2 (09:16→20:44)
[2018-11-18] MEDS: FAMOTIDINE 20 MG TABLET PO SCH (09:16)
[2018-11-18] MEDS: LACOSAMIDE 100 MG TABLET PO SCH ×2 (09:17→20:57)
[2018-11-18] MEDS: LATANOPROST 2.5 ML DROPS (XALATAN) OP SCH (09:17)
[2018-11-18] MEDS: METOPROLOL SUCCINATE 50 MG TAB.SR.24H (TOPROL XL) PO SCH ×2 (09:17→20:43)
[2018-11-18] MEDS: APIXABAN 2.5 MG TABLET PO SCH ×2 (09:19→20:46)
[2018-11-18] MEDS: BALSAM PERU/CASTOR OIL 60 GM OINT...G. TP SCH (09:41)
[2018-11-18 11:28] VITALS: BP_SYST 125
[2018-11-18] MEDS: 0.45% NACL 1,000 ML IV SCH (12:01)
[2018-11-18 15:29] VITALS: BP_SYST 135
[2018-11-18 20:00] VITALS: BP_SYST 126
[2018-11-18] MEDS: DONEPEZIL HCL 5 MG TABLET (ARICEPT) PO SCH (20:42)
[2018-11-18] MEDS: ATORVASTATIN 20 MG TABLET PO SCH (20:42)
[2018-11-19 00:13] VITALS: BP_SYST 129
[2018-11-19] MEDS: 0.45% NACL 1,000 ML IV SCH ×2 (00:47→14:26)
[2018-11-19 08:06] VITALS: BP_SYST 160
[2018-11-19] MEDS: LACOSAMIDE 100 MG TABLET PO SCH ×2 (09:00→20:44)
[2018-11-19] MEDS: DOCUSATE SODIUM 100 MG/10 ML UDC PO SCH (09:05)
[2018-11-19] MEDS: LATANOPROST 2.5 ML DROPS (XALATAN) OP SCH (09:05)
[2018-11-19] MEDS: LACTOBACILLUS RHAMNOSUS GG 1 CAP CAPSULE PO SCH ×2 (09:05→20:46)
[2018-11-19] MEDS: DILTIAZEM HCL 30 MG TABLET PO SCH ×4 (09:06→20:46)
[2018-11-19] MEDS: MULTIVITS,CA,MINERALS/IRON/FA 1 TABLET PO SCH ×2 (09:06→20:59)
[2018-11-19] MEDS: METOPROLOL SUCCINATE 50 MG TAB.SR.24H (TOPROL XL) PO SCH ×2 (09:06→20:46)
[2018-11-19] MEDS: FAMOTIDINE 20 MG TABLET PO SCH (09:06)
[2018-11-19] MEDS: CHOLECALCIFEROL (VITAMIN D3) 2,000 UNIT TABLET PO SCH (09:06)
[2018-11-19] MEDS: levETIRAcetam 500 MG TABLET PO SCH ×2 (09:06→20:43)
[2018-11-19] MEDS: APIXABAN 2.5 MG TABLET PO SCH ×2 (09:07→20:47)
[2018-11-19] MEDS: BALSAM PERU/CASTOR OIL 60 GM OINT...G. TP SCH (09:08)
[2018-11-19 11:25] VITALS: BP_SYST 132
[2018-11-19 15:26] VITALS: BP_SYST 140
[2018-11-19 17:00] VITALS: BP_SYST 140
[2018-11-19 20:00] VITALS: BP_SYST 135
[2018-11-19] MEDS: DONEPEZIL HCL 5 MG TABLET (ARICEPT) PO SCH (20:44)
[2018-11-19] MEDS: ATORVASTATIN 20 MG TABLET PO SCH (20:44)
[2018-11-20 01:23] VITALS: BP_SYST 93
[2018-11-20 09:00] VITALS: BP_SYST 164
[2018-11-20] MEDS: LATANOPROST 2.5 ML DROPS (XALATAN) OP SCH (09:00)
[2018-11-20] MEDS: levETIRAcetam 500 MG TABLET PO SCH ×2 (09:52→21:26)
[2018-11-20] MEDS: DILTIAZEM HCL 30 MG TABLET PO SCH ×4 (09:52→21:26)
[2018-11-20] MEDS: LACTOBACILLUS RHAMNOSUS GG 1 CAP CAPSULE PO SCH ×2 (09:52→21:26)
[2018-11-20] MEDS: LACOSAMIDE 100 MG TABLET PO SCH ×2 (09:52→21:27)
[2018-11-20] MEDS: DOCUSATE SODIUM 100 MG/10 ML UDC PO SCH (09:52)
[2018-11-20] MEDS: CHOLECALCIFEROL (VITAMIN D3) 2,000 UNIT TABLET PO SCH (09:53)
[2018-11-20] MEDS: FAMOTIDINE 20 MG TABLET PO SCH (09:53)
[2018-11-20] MEDS: MULTIVITS,CA,MINERALS/IRON/FA 1 TABLET PO SCH ×2 (09:53→21:26)
[2018-11-20] MEDS: APIXABAN 2.5 MG TABLET PO SCH ×2 (09:53→21:30)
[2018-11-20] MEDS: METOPROLOL SUCCINATE 50 MG TAB.SR.24H (TOPROL XL) PO SCH ×2 (09:54→21:29)
[2018-11-20] MEDS: BALSAM PERU/CASTOR OIL 60 GM OINT...G. TP SCH (09:55)
[2018-11-20 11:15] VITALS: BP_SYST 148
[2018-11-20 15:40] VITALS: BP_SYST 142
[2018-11-20 19:00] VITALS: BP_SYST 144
[2018-11-20 20:00] VITALS: BP_SYST 124
[2018-11-20] MEDS: DONEPEZIL HCL 5 MG TABLET (ARICEPT) PO SCH (21:25)
[2018-11-20] MEDS: ATORVASTATIN 20 MG TABLET PO SCH (21:26)
[2018-11-21 00:47] VITALS: BP_SYST 125
[2018-11-21 04:02] LABS: BILIRUBIN,URINE NEGATIVE (NEGATIVE); BLOOD, URINE NEGATIVE (NEGATIVE); CLARITY/URINE HAZY (CLEAR); COLOR,URINE YELLOW (YELLOW); GLUCOSE,URINE NEGATIVE (NEGATIVE); KETONES,URINE NEGATIVE (NEGATIVE); LEUKOCYTE ESTERASE ,URINE NEGATIVE (NEGATIVE); NITRITE, URINE NEGATIVE (NEGATIVE); PROTEIN URINE TRACE (NEGATIVE)
[2018-11-21 04:11] LABS: BACTERIA,URINE FEW /HPF (None Seen); RBC,URINE 0-3 /HPF (0-3); WBC,URINE 0-3 /HPF (0-3)
[2018-11-21 07:43] VITALS: BP_SYST 136
[2018-11-21] MEDS: LACOSAMIDE 100 MG TABLET PO SCH ×2 (09:00→22:59)
[2018-11-21] MEDS: DOCUSATE SODIUM 100 MG/10 ML UDC PO SCH (09:00)
[2018-11-21] MEDS: MULTIVITS,CA,MINERALS/IRON/FA 1 TABLET PO SCH ×2 (09:00→23:00)
[2018-11-21] MEDS: levETIRAcetam 500 MG TABLET PO SCH ×2 (09:00→23:00)
[2018-11-21] MEDS: LACTOBACILLUS RHAMNOSUS GG 1 CAP CAPSULE PO SCH ×2 (09:00→23:00)
[2018-11-21] MEDS: CHOLECALCIFEROL (VITAMIN D3) 2,000 UNIT TABLET PO SCH (09:00)
[2018-11-21] MEDS: DILTIAZEM HCL 30 MG TABLET PO SCH ×4 (09:01→23:01)
[2018-11-21] MEDS: FAMOTIDINE 20 MG TABLET PO SCH (09:01)
[2018-11-21] MEDS: METOPROLOL SUCCINATE 50 MG TAB.SR.24H (TOPROL XL) PO SCH ×2 (09:01→23:01)
[2018-11-21] MEDS: APIXABAN 2.5 MG TABLET PO SCH ×2 (09:02→23:03)
[2018-11-21] MEDS: BALSAM PERU/CASTOR OIL 60 GM OINT...G. TP SCH (09:03)
[2018-11-21] MEDS: LATANOPROST 2.5 ML DROPS (XALATAN) OP SCH (09:03)
[2018-11-21 12:33] VITALS: BP_SYST 144
[2018-11-21 16:43] VITALS: BP_SYST 118
[2018-11-21 20:27] VITALS: BP_SYST 119
[2018-11-21] MEDS: ATORVASTATIN 20 MG TABLET PO SCH (22:59)
[2018-11-21] MEDS: MINERAL OIL/PETROLATUM,WHITE 113 GM CREAM.GM. TP SCH (22:59)
[2018-11-21] MEDS: DONEPEZIL HCL 5 MG TABLET (ARICEPT) PO SCH (23:00)
[2018-11-22 01:26] VITALS: BP_SYST 136
[2018-11-22 08:34] VITALS: BP_SYST 145
[2018-11-22] MEDS: LATANOPROST 2.5 ML DROPS (XALATAN) OP SCH (08:38)
[2018-11-22] MEDS: DOCUSATE SODIUM 100 MG/10 ML UDC PO SCH (08:38)
[2018-11-22] MEDS: MULTIVITS,CA,MINERALS/IRON/FA 1 TABLET PO SCH ×2 (08:39→21:23)
[2018-11-22] MEDS: levETIRAcetam 500 MG TABLET PO SCH ×2 (08:39→21:22)
[2018-11-22] MEDS: METOPROLOL SUCCINATE 50 MG TAB.SR.24H (TOPROL XL) PO SCH ×2 (08:39→21:23)
[2018-11-22] MEDS: CHOLECALCIFEROL (VITAMIN D3) 2,000 UNIT TABLET PO SCH (08:39)
[2018-11-22] MEDS: FAMOTIDINE 20 MG TABLET PO SCH (08:39)
[2018-11-22] MEDS: LACTOBACILLUS RHAMNOSUS GG 1 CAP CAPSULE PO SCH ×2 (08:40→21:22)
[2018-11-22] MEDS: APIXABAN 2.5 MG TABLET PO SCH ×2 (08:40→21:24)
[2018-11-22] MEDS: DILTIAZEM HCL 30 MG TABLET PO SCH ×4 (08:40→21:22)
[2018-11-22] MEDS: LACOSAMIDE 100 MG TABLET PO SCH ×2 (08:41→21:24)
[2018-11-22] MEDS: BALSAM PERU/CASTOR OIL 60 GM OINT...G. TP SCH (08:41)
[2018-11-22] MEDS: MINERAL OIL/PETROLATUM,WHITE 113 GM CREAM.GM. TP SCH (08:42)
[2018-11-22 11:16] VITALS: BP_SYST 137
[2018-11-22 15:35] VITALS: BP_SYST 146
[2018-11-22 19:00] VITALS: BP_SYST 127
[2018-11-22 20:00] VITALS: BP_SYST 127
[2018-11-22] MEDS: DONEPEZIL HCL 5 MG TABLET (ARICEPT) PO SCH (21:21)
[2018-11-22] MEDS: ATORVASTATIN 20 MG TABLET PO SCH (21:23)
[2018-11-23 00:27] VITALS: BP_SYST 94
[2018-11-23] MEDS: MINERAL OIL/PETROLATUM,WHITE 113 GM CREAM.GM. TP SCH ×3 (00:28→21:12)
[2018-11-23 06:34] LABS: BASOPHILS # (AUTO) 0.1 K/uL (0.0-0.2); BASOPHILS % (AUTO) 0.7 % (0.0-2.0); EOSINOPHILS # (AUTO) 0.5 K/uL (0.0-0.4); EOSINOPHILS % (AUTO) 4.5 % (0.0-4.0); HEMOGLOBIN 9.9 g/dL (14.0-18.0); LYMPHOCYTES # (AUTO) 2.6 K/uL (1.0-5.5); LYMPHOCYTES % (AUTO) 23.7 % (20.5-51.5); MEAN CORPUSCULAR HEMOGLOBIN 28 pg (27-31); MEAN CORPUSCULAR HGB CONC 33 % (32-36); MEAN CORPUSCULAR VOLUME 87 fL (79.0-98.0); MONOCYTES # (AUTO) 0.9 K/uL (0.0-1.0); MONOCYTES % (AUTO) 7.9 % (1.7-9.3); NEUTROPHILS % (AUTO) 63.2 % (40.0-70.0); PLATELET COUNT (AUTO) 495 K/uL (130-430); RED BLOOD CELL COUNT(AUTO) 3.47 MIL/uL (4.2-6.2); RED CELL DISTRIBUTION WIDTH 17.2 % (9.0-15.0); WHITE BLOOD COUNT (AUTO) 11.1 K/uL (4.8-10.8)
[2018-11-23 07:25] LABS: ALANINE AMINOTRANSFERASE 25 U/L (12-78); ALBUMIN 2.1 g/dL (3.4-4.8); ANION GAP 12 (5-15); ASPARTATE AMINOTRANSFERASE 23 U/L (10-37); CALCIUM 9.3 mg/dL (8.4-11.0); CHLORIDE 101 mmol/L (98-107); CREATININE 1.01 mg/dL (0.55-1.30); GLUCOSE 110 mg/dL (70-99); POTASSIUM 4.2 mmol/L (3.5-5.1); SODIUM SERUM 135 mmol/L (136-145); TOTAL BILIRUBIN 0.3 mg/dL (0.0-1.0); UREA NITROGEN, BLOOD 45 mg/dL (8-21)
[2018-11-23 08:02] VITALS: BP_SYST 133
[2018-11-23 08:18] VITALS: BP_SYST 133
[2018-11-23] MEDS: levETIRAcetam 500 MG TABLET PO SCH ×2 (09:10→21:08)
[2018-11-23] MEDS: FAMOTIDINE 20 MG TABLET PO SCH (09:10)
[2018-11-23] MEDS: LACOSAMIDE 100 MG TABLET PO SCH ×2 (09:10→21:07)
[2018-11-23] MEDS: DOCUSATE SODIUM 100 MG/10 ML UDC PO SCH (09:10)
[2018-11-23] MEDS: LATANOPROST 2.5 ML DROPS (XALATAN) OP SCH (09:10)
[2018-11-23] MEDS: CHOLECALCIFEROL (VITAMIN D3) 2,000 UNIT TABLET PO SCH (09:10)
[2018-11-23] MEDS: MULTIVITS,CA,MINERALS/IRON/FA 1 TABLET PO SCH ×2 (09:10→21:08)
[2018-11-23] MEDS: LACTOBACILLUS RHAMNOSUS GG 1 CAP CAPSULE PO SCH ×2 (09:10→21:08)
[2018-11-23] MEDS: DILTIAZEM HCL 30 MG TABLET PO SCH ×4 (09:11→21:08)
[2018-11-23] MEDS: METOPROLOL SUCCINATE 50 MG TAB.SR.24H (TOPROL XL) PO SCH ×2 (09:12→21:10)
[2018-11-23] MEDS: APIXABAN 2.5 MG TABLET PO SCH ×2 (09:12→21:10)
[2018-11-23] MEDS: BALSAM PERU/CASTOR OIL 60 GM OINT...G. TP SCH (09:36)
[2018-11-23 11:11] VITALS: BP_SYST 138
[2018-11-23 15:40] VITALS: BP_SYST 118
[2018-11-23 20:00] VITALS: BP_SYST 137
[2018-11-23] MEDS: DONEPEZIL HCL 5 MG TABLET (ARICEPT) PO SCH (21:08)
[2018-11-23] MEDS: ATORVASTATIN 20 MG TABLET PO SCH (21:08)
[2018-11-24 00:21] VITALS: BP_SYST 123
[2018-11-24 07:56] VITALS: BP_SYST 113
[2018-11-24] MEDS: DOCUSATE SODIUM 100 MG/10 ML UDC PO SCH (09:25)
[2018-11-24] MEDS: FAMOTIDINE 20 MG TABLET PO SCH (09:25)
[2018-11-24] MEDS: MULTIVITS,CA,MINERALS/IRON/FA 1 TABLET PO SCH ×2 (09:25→22:43)
[2018-11-24] MEDS: LACTOBACILLUS RHAMNOSUS GG 1 CAP CAPSULE PO SCH ×2 (09:25→22:44)
[2018-11-24] MEDS: levETIRAcetam 500 MG TABLET PO SCH ×2 (09:25→22:43)
[2018-11-24] MEDS: LACOSAMIDE 100 MG TABLET PO SCH ×2 (09:26→22:51)
[2018-11-24] MEDS: METOPROLOL SUCCINATE 50 MG TAB.SR.24H (TOPROL XL) PO SCH ×2 (09:26→22:46)
[2018-11-24] MEDS: CHOLECALCIFEROL (VITAMIN D3) 2,000 UNIT TABLET PO SCH (09:26)
[2018-11-24] MEDS: DILTIAZEM HCL 30 MG TABLET PO SCH ×4 (09:27→22:45)
[2018-11-24] MEDS: APIXABAN 2.5 MG TABLET PO SCH ×2 (09:27→22:38)
[2018-11-24] MEDS: LATANOPROST 2.5 ML DROPS (XALATAN) OP SCH (09:30)
[2018-11-24] MEDS: MINERAL OIL/PETROLATUM,WHITE 113 GM CREAM.GM. TP SCH ×2 (09:32→22:51)
[2018-11-24] MEDS: BALSAM PERU/CASTOR OIL 60 GM OINT...G. TP SCH (09:34)
[2018-11-24 11:17] VITALS: BP_SYST 149
[2018-11-24 15:30] VITALS: BP_SYST 137
[2018-11-24 21:00] VITALS: BP_SYST 157
[2018-11-24] MEDS: ATORVASTATIN 20 MG TABLET PO SCH (22:43)
[2018-11-24] MEDS: DONEPEZIL HCL 5 MG TABLET (ARICEPT) PO SCH (22:47)
[2018-11-25 00:54] VITALS: BP_SYST 137
[2018-11-25 08:00] VITALS: BP_SYST 115
[2018-11-25] MEDS: LATANOPROST 2.5 ML DROPS (XALATAN) OP SCH (08:08)
[2018-11-25] MEDS: LACOSAMIDE 100 MG TABLET PO SCH ×2 (08:08→21:20)
[2018-11-25] MEDS: LACTOBACILLUS RHAMNOSUS GG 1 CAP CAPSULE PO SCH ×2 (08:09→21:21)
[2018-11-25] MEDS: CHOLECALCIFEROL (VITAMIN D3) 2,000 UNIT TABLET PO SCH (08:09)
[2018-11-25] MEDS: MULTIVITS,CA,MINERALS/IRON/FA 1 TABLET PO SCH ×2 (08:09→21:23)
[2018-11-25] MEDS: levETIRAcetam 500 MG TABLET PO SCH ×2 (08:09→21:24)
[2018-11-25] MEDS: DILTIAZEM HCL 30 MG TABLET PO SCH ×4 (08:09→21:21)
[2018-11-25] MEDS: FAMOTIDINE 20 MG TABLET PO SCH (08:09)
[2018-11-25] MEDS: APIXABAN 2.5 MG TABLET PO SCH ×2 (08:10→21:25)
[2018-11-25] MEDS: METOPROLOL SUCCINATE 50 MG TAB.SR.24H (TOPROL XL) PO SCH ×2 (08:10→21:23)
[2018-11-25] MEDS: MINERAL OIL/PETROLATUM,WHITE 113 GM CREAM.GM. TP SCH ×2 (08:10→21:20)
[2018-11-25] MEDS: DOCUSATE SODIUM 100 MG/10 ML UDC PO SCH (08:10)
[2018-11-25] MEDS: BALSAM PERU/CASTOR OIL 60 GM OINT...G. TP SCH (08:11)
[2018-11-25 11:21] VITALS: BP_SYST 133
[2018-11-25 15:58] VITALS: BP_SYST 121
[2018-11-25 20:00] VITALS: BP_SYST 151
[2018-11-25] MEDS: DONEPEZIL HCL 5 MG TABLET (ARICEPT) PO SCH (21:21)
[2018-11-25] MEDS: ATORVASTATIN 20 MG TABLET PO SCH (21:23)
[2018-11-26 00:20] VITALS: BP_SYST 125
[2018-11-26 07:00] LABS: BASOPHILS # (AUTO) 0.1 K/uL (0.0-0.2); BASOPHILS % (AUTO) 0.5 % (0.0-2.0); EOSINOPHILS # (AUTO) 0.5 K/uL (0.0-0.4); EOSINOPHILS % (AUTO) 4.6 % (0.0-4.0); HEMOGLOBIN 10.3 g/dL (14.0-18.0); LYMPHOCYTES # (AUTO) 1.9 K/uL (1.0-5.5); LYMPHOCYTES % (AUTO) 17.1 % (20.5-51.5); MEAN CORPUSCULAR HEMOGLOBIN 29 pg (27-31); MEAN CORPUSCULAR HGB CONC 33 % (32-36); MEAN CORPUSCULAR VOLUME 87 fL (79.0-98.0); MONOCYTES # (AUTO) 0.9 K/uL (0.0-1.0); MONOCYTES % (AUTO) 7.8 % (1.7-9.3); NEUTROPHILS # (AUTO) 7.6 K/uL (1.8-7.7); PLATELET COUNT (AUTO) 424 K/uL (130-430); RED BLOOD CELL COUNT(AUTO) 3.55 MIL/uL (4.2-6.2); RED CELL DISTRIBUTION WIDTH 17.1 % (9.0-15.0); WHITE BLOOD COUNT (AUTO) 10.9 K/uL (4.8-10.8)
[2018-11-26 07:31] VITALS: BP_SYST 125
[2018-11-26 07:43] LABS: ALANINE AMINOTRANSFERASE 24 U/L (12-78); ALBUMIN 2.1 g/dL (3.4-4.8); ANION GAP 8 (5-15); ASPARTATE AMINOTRANSFERASE 24 U/L (10-37); CALCIUM 9.5 mg/dL (8.4-11.0); CHLORIDE 100 mmol/L (98-107); CREATININE 0.92 mg/dL (0.55-1.30); GLUCOSE 110 mg/dL (70-99); POTASSIUM 4.2 mmol/L (3.5-5.1); SODIUM SERUM 135 mmol/L (136-145); TOTAL BILIRUBIN 0.3 mg/dL (0.0-1.0); UREA NITROGEN, BLOOD 53 mg/dL (8-21)
[2018-11-26 08:08] VITALS: BP_SYST 124
[2018-11-26] MEDS: DOCUSATE SODIUM 100 MG/10 ML UDC PO SCH (08:22)
[2018-11-26] MEDS: LATANOPROST 2.5 ML DROPS (XALATAN) OP SCH (08:22)
[2018-11-26] MEDS: levETIRAcetam 500 MG TABLET PO SCH ×2 (08:22→20:34)
[2018-11-26] MEDS: DILTIAZEM HCL 30 MG TABLET PO SCH ×4 (08:23→20:34)
[2018-11-26] MEDS: CHOLECALCIFEROL (VITAMIN D3) 2,000 UNIT TABLET PO SCH (08:23)
[2018-11-26] MEDS: LACTOBACILLUS RHAMNOSUS GG 1 CAP CAPSULE PO SCH ×2 (08:23→20:33)
[2018-11-26] MEDS: LACOSAMIDE 100 MG TABLET PO SCH ×2 (08:23→20:33)
[2018-11-26] MEDS: METOPROLOL SUCCINATE 50 MG TAB.SR.24H (TOPROL XL) PO SCH ×2 (08:23→20:34)
[2018-11-26] MEDS: FAMOTIDINE 20 MG TABLET PO SCH (08:23)
[2018-11-26] MEDS: MULTIVITS,CA,MINERALS/IRON/FA 1 TABLET PO SCH ×2 (08:23→20:33)
[2018-11-26] MEDS: MINERAL OIL/PETROLATUM,WHITE 113 GM CREAM.GM. TP SCH ×2 (08:24→20:37)
[2018-11-26] MEDS: BALSAM PERU/CASTOR OIL 60 GM OINT...G. TP SCH (08:24)
[2018-11-26] MEDS: APIXABAN 2.5 MG TABLET PO SCH ×2 (08:25→20:35)
[2018-11-26 12:25] VITALS: BP_SYST 129
[2018-11-26 16:08] VITALS: BP_SYST 132
[2018-11-26 20:00] VITALS: BP_SYST 156
[2018-11-26] MEDS: ATORVASTATIN 20 MG TABLET PO SCH (20:33)
[2018-11-26] MEDS: DONEPEZIL HCL 5 MG TABLET (ARICEPT) PO SCH (20:33)
[2018-11-27 01:21] VITALS: BP_SYST 142
[2018-11-27 08:00] VITALS: BP_SYST 142
[2018-11-27] MEDS: LATANOPROST 2.5 ML DROPS (XALATAN) OP SCH (08:53)
[2018-11-27] MEDS: FAMOTIDINE 20 MG TABLET PO SCH (08:54)
[2018-11-27] MEDS: DILTIAZEM HCL 30 MG TABLET PO SCH ×4 (08:54→20:28)
[2018-11-27] MEDS: METOPROLOL SUCCINATE 50 MG TAB.SR.24H (TOPROL XL) PO SCH ×2 (08:54→20:27)
[2018-11-27] MEDS: levETIRAcetam 500 MG TABLET PO SCH ×2 (08:55→20:30)
[2018-11-27] MEDS: APIXABAN 2.5 MG TABLET PO SCH ×2 (08:55→20:29)
[2018-11-27] MEDS: CHOLECALCIFEROL (VITAMIN D3) 2,000 UNIT TABLET PO SCH (08:55)
[2018-11-27] MEDS: DOCUSATE SODIUM 100 MG/10 ML UDC PO SCH (08:55)
[2018-11-27] MEDS: LACOSAMIDE 100 MG TABLET PO SCH ×2 (08:55→20:29)
[2018-11-27] MEDS: LACTOBACILLUS RHAMNOSUS GG 1 CAP CAPSULE PO SCH ×2 (08:55→20:29)
[2018-11-27] MEDS: MULTIVITS,CA,MINERALS/IRON/FA 1 TABLET PO SCH ×2 (08:55→20:29)
[2018-11-27] MEDS: BALSAM PERU/CASTOR OIL 60 GM OINT...G. TP SCH (08:56)
[2018-11-27] MEDS: MINERAL OIL/PETROLATUM,WHITE 113 GM CREAM.GM. TP SCH ×2 (08:57→20:32)
[2018-11-27 12:29] VITALS: BP_SYST 123
[2018-11-27 16:55] VITALS: BP_SYST 136
[2018-11-27 19:05] VITALS: BP_SYST 137
[2018-11-27] MEDS: DONEPEZIL HCL 5 MG TABLET (ARICEPT) PO SCH (20:29)
[2018-11-27] MEDS: ATORVASTATIN 20 MG TABLET PO SCH (20:30)
[2018-11-28 01:00] VITALS: BP_SYST 133
[2018-11-28 08:00] VITALS: BP_SYST 151
[2018-11-28] MEDS ORDERED: COMMUNICATION ORDER XX ONE (08:00)
[2018-11-28] MEDS ORDERED: MULTIVITAMINS,THERAPEUTIC 5 ML UDC GT SCH (08:09)
[2018-11-28] MEDS: LACOSAMIDE 100 MG TABLET GT SCH ×2 (08:37→20:32)
[2018-11-28] MEDS: CHOLECALCIFEROL (VITAMIN D3) 2,000 UNIT TABLET GT SCH (08:37)
[2018-11-28] MEDS: DOCUSATE SODIUM 100 MG/10 ML UDC GT SCH (08:37)
[2018-11-28] MEDS: FAMOTIDINE 20 MG TABLET GT SCH (08:38)
[2018-11-28] MEDS: DILTIAZEM HCL 30 MG TABLET GT SCH ×4 (08:38→20:35)
[2018-11-28] MEDS: LACTOBACILLUS RHAMNOSUS GG 1 CAP CAPSULE GT SCH ×2 (08:38→20:35)
[2018-11-28] MEDS: levETIRAcetam 500 MG TABLET GT SCH ×2 (08:39→20:33)
[2018-11-28] MEDS: METOPROLOL TARTRATE 50 MG TABLET GT SCH ×2 (08:39→20:35)
[2018-11-28] MEDS: BALSAM PERU/CASTOR OIL 60 GM OINT...G. TP SCH (08:41)
[2018-11-28] MEDS: LATANOPROST 2.5 ML DROPS (XALATAN) OP SCH (08:41)
[2018-11-28] MEDS: MINERAL OIL/PETROLATUM,WHITE 113 GM CREAM.GM. TP SCH ×2 (08:42→20:38)
[2018-11-28] MEDS: APIXABAN 2.5 MG TABLET GT SCH ×2 (08:43→20:36)
[2018-11-28 12:30] VITALS: BP_SYST 120
[2018-11-28 16:21] VITALS: BP_SYST 117
[2018-11-28 19:05] VITALS: BP_SYST 137
[2018-11-28] MEDS: DONEPEZIL HCL 5 MG TABLET (ARICEPT) GT SCH (20:33)
[2018-11-28] MEDS: ATORVASTATIN 20 MG TABLET GT SCH (20:33)
[2018-11-28] MEDS: MULTIVIT-MINERALS/FERROUS GLUC 15 ML UDC GT SCH (20:46)
[2018-11-29 00:33] VITALS: BP_SYST 134
[2018-11-29 08:12] VITALS: BP_SYST 136
[2018-11-29] MEDS: DOCUSATE SODIUM 100 MG/10 ML UDC GT SCH (08:18)
[2018-11-29] MEDS: MULTIVIT-MINERALS/FERROUS GLUC 15 ML UDC GT SCH ×2 (08:18→20:52)
[2018-11-29] MEDS: LACOSAMIDE 100 MG TABLET GT SCH ×2 (08:19→20:51)
[2018-11-29] MEDS: FAMOTIDINE 20 MG TABLET GT SCH (08:20)
[2018-11-29] MEDS: DILTIAZEM HCL 30 MG TABLET GT SCH ×4 (08:20→20:50)
[2018-11-29] MEDS: METOPROLOL TARTRATE 50 MG TABLET GT SCH ×2 (08:20→20:50)
[2018-11-29] MEDS: CHOLECALCIFEROL (VITAMIN D3) 2,000 UNIT TABLET GT SCH (08:22)
[2018-11-29] MEDS: LACTOBACILLUS RHAMNOSUS GG 1 CAP CAPSULE GT SCH ×2 (08:22→20:50)
[2018-11-29] MEDS: levETIRAcetam 500 MG TABLET GT SCH ×2 (08:22→20:49)
[2018-11-29] MEDS: APIXABAN 2.5 MG TABLET GT SCH ×2 (08:22→20:51)
[2018-11-29] MEDS: LATANOPROST 2.5 ML DROPS (XALATAN) OP SCH (08:29)
[2018-11-29] MEDS: BALSAM PERU/CASTOR OIL 60 GM OINT...G. TP SCH (08:29)
[2018-11-29] MEDS: MINERAL OIL/PETROLATUM,WHITE 113 GM CREAM.GM. TP SCH ×2 (08:34→21:12)
[2018-11-29 11:17] VITALS: BP_SYST 143
[2018-11-29 15:22] VITALS: BP_SYST 131
[2018-11-29] MEDS: INSULIN REGULAR, HUMAN 100 UNITS/ML, 10 ML VIAL (novoLIN R) SUBCUT PRN (17:44)
[2018-11-29 19:45] VITALS: BP_SYST 129
[2018-11-29] MEDS: DONEPEZIL HCL 5 MG TABLET (ARICEPT) GT SCH (20:50)
[2018-11-29] MEDS: ATORVASTATIN 20 MG TABLET GT SCH (20:50)
[2018-11-30] VITALS (7 sets, daily range): BP systolic 115–147
[2018-11-30] MEDS: LACOSAMIDE 100 MG TABLET GT SCH ×2 (08:15→20:56)
[2018-11-30] MEDS: LACTOBACILLUS RHAMNOSUS GG 1 CAP CAPSULE GT SCH ×2 (08:15→20:52)
[2018-11-30] MEDS: DOCUSATE SODIUM 100 MG/10 ML UDC GT SCH (08:15)
[2018-11-30] MEDS: levETIRAcetam 500 MG TABLET GT SCH ×2 (08:15→20:52)
[2018-11-30] MEDS: FAMOTIDINE 20 MG TABLET GT SCH (08:16)
[2018-11-30] MEDS: METOPROLOL TARTRATE 50 MG TABLET GT SCH ×2 (08:16→20:57)
[2018-11-30] MEDS: LATANOPROST 2.5 ML DROPS (XALATAN) OP SCH (08:16)
[2018-11-30] MEDS: CHOLECALCIFEROL (VITAMIN D3) 2,000 UNIT TABLET GT SCH (08:16)
[2018-11-30] MEDS: DILTIAZEM HCL 30 MG TABLET GT SCH ×4 (08:16→20:56)
[2018-11-30] MEDS: APIXABAN 2.5 MG TABLET GT SCH ×2 (08:17→20:59)
[2018-11-30] MEDS: MULTIVIT-MINERALS/FERROUS GLUC 15 ML UDC GT SCH ×2 (08:19→20:51)
[2018-11-30] MEDS: MINERAL OIL/PETROLATUM,WHITE 113 GM CREAM.GM. TP SCH ×2 (10:40→21:07)
[2018-11-30] MEDS: BALSAM PERU/CASTOR OIL 60 GM OINT...G. TP SCH (10:41)
[2018-11-30] MEDS: DONEPEZIL HCL 5 MG TABLET (ARICEPT) GT SCH (20:52)
[2018-11-30] MEDS: ATORVASTATIN 20 MG TABLET GT SCH (20:58)
[2018-12-01 07:51] VITALS: BP_SYST 141
[2018-12-01] MEDS: MULTIVIT-MINERALS/FERROUS GLUC 15 ML UDC GT SCH ×2 (09:11→21:43)
[2018-12-01] MEDS: CHOLECALCIFEROL (VITAMIN D3) 2,000 UNIT TABLET GT SCH (09:12)
[2018-12-01] MEDS: METOPROLOL TARTRATE 50 MG TABLET GT SCH ×2 (09:12→21:48)
[2018-12-01] MEDS: DOCUSATE SODIUM 100 MG/10 ML UDC GT SCH (09:12)
[2018-12-01] MEDS: LACTOBACILLUS RHAMNOSUS GG 1 CAP CAPSULE GT SCH ×2 (09:13→21:44)
[2018-12-01] MEDS: FAMOTIDINE 20 MG TABLET GT SCH (09:13)
[2018-12-01] MEDS: DILTIAZEM HCL 30 MG TABLET GT SCH ×4 (09:13→21:46)
[2018-12-01] MEDS: levETIRAcetam 500 MG TABLET GT SCH ×2 (09:13→21:44)
[2018-12-01] MEDS: LATANOPROST 2.5 ML DROPS (XALATAN) OP SCH (09:13)
[2018-12-01] MEDS: LACOSAMIDE 100 MG TABLET GT SCH ×2 (09:13→21:43)
[2018-12-01] MEDS: MINERAL OIL/PETROLATUM,WHITE 113 GM CREAM.GM. TP SCH ×2 (09:14→21:48)
[2018-12-01] MEDS: BALSAM PERU/CASTOR OIL 60 GM OINT...G. TP SCH (09:14)
[2018-12-01] MEDS: APIXABAN 2.5 MG TABLET GT SCH ×2 (09:17→21:49)
[2018-12-01 11:24] VITALS: BP_SYST 135
[2018-12-01 15:47] VITALS: BP_SYST 123
[2018-12-01] MEDS: DONEPEZIL HCL 5 MG TABLET (ARICEPT) GT SCH (21:44)
[2018-12-01] MEDS: ATORVASTATIN 20 MG TABLET GT SCH (21:44)
[2018-12-01 23:35] VITALS: BP_SYST 119
[2018-12-02 08:00] VITALS: BP_SYST 151
[2018-12-02] MEDS: DOCUSATE SODIUM 100 MG/10 ML UDC GT SCH (09:03)
[2018-12-02] MEDS: FAMOTIDINE 20 MG TABLET GT SCH (09:03)
[2018-12-02] MEDS: LACTOBACILLUS RHAMNOSUS GG 1 CAP CAPSULE GT SCH ×2 (09:03→21:47)
[2018-12-02] MEDS: CHOLECALCIFEROL (VITAMIN D3) 2,000 UNIT TABLET GT SCH (09:03)
[2018-12-02] MEDS: DILTIAZEM HCL 30 MG TABLET GT SCH ×4 (09:04→21:47)
[2018-12-02] MEDS: LATANOPROST 2.5 ML DROPS (XALATAN) OP SCH (09:04)
[2018-12-02] MEDS: MULTIVIT-MINERALS/FERROUS GLUC 15 ML UDC GT SCH ×2 (09:04→21:47)
[2018-12-02] MEDS: levETIRAcetam 500 MG TABLET GT SCH ×2 (09:04→21:47)
[2018-12-02] MEDS: LACOSAMIDE 100 MG TABLET GT SCH ×2 (09:04→21:46)
[2018-12-02] MEDS: METOPROLOL TARTRATE 50 MG TABLET GT SCH ×2 (09:05→21:46)
[2018-12-02] MEDS: APIXABAN 2.5 MG TABLET GT SCH ×2 (09:07→21:48)
[2018-12-02 11:23] VITALS: BP_SYST 137
[2018-12-02] MEDS: MINERAL OIL/PETROLATUM,WHITE 113 GM CREAM.GM. TP SCH ×2 (13:48→21:48)
[2018-12-02] MEDS: BALSAM PERU/CASTOR OIL 60 GM OINT...G. TP SCH (13:49)
[2018-12-02 15:11] VITALS: BP_SYST 147
[2018-12-02 20:00] VITALS: BP_SYST 125
[2018-12-02] MEDS: ATORVASTATIN 20 MG TABLET GT SCH (21:46)
[2018-12-02] MEDS: DONEPEZIL HCL 5 MG TABLET (ARICEPT) GT SCH (21:47)
[2018-12-02 23:45] VITALS: BP_SYST 129
[2018-12-03 08:00] VITALS: BP_SYST 114
[2018-12-03] MEDS: CHOLECALCIFEROL (VITAMIN D3) 2,000 UNIT TABLET GT SCH (09:00)
[2018-12-03] MEDS: LACOSAMIDE 100 MG TABLET GT SCH ×2 (09:00→20:58)
[2018-12-03] MEDS: DOCUSATE SODIUM 100 MG/10 ML UDC GT SCH (09:00)
[2018-12-03] MEDS: LACTOBACILLUS RHAMNOSUS GG 1 CAP CAPSULE GT SCH ×2 (09:00→20:58)
[2018-12-03] MEDS: FAMOTIDINE 20 MG TABLET GT SCH (09:01)
[2018-12-03] MEDS: APIXABAN 2.5 MG TABLET GT SCH ×2 (09:01→20:59)
[2018-12-03] MEDS: DILTIAZEM HCL 30 MG TABLET GT SCH ×4 (09:02→20:57)
[2018-12-03] MEDS: levETIRAcetam 500 MG TABLET GT SCH ×2 (09:02→20:59)
[2018-12-03] MEDS: METOPROLOL TARTRATE 50 MG TABLET GT SCH ×2 (09:03→20:58)
[2018-12-03] MEDS: MULTIVIT-MINERALS/FERROUS GLUC 15 ML UDC GT SCH ×2 (09:04→20:57)
[2018-12-03] MEDS: LATANOPROST 2.5 ML DROPS (XALATAN) OP SCH (09:05)
[2018-12-03] MEDS: MINERAL OIL/PETROLATUM,WHITE 113 GM CREAM.GM. TP SCH ×2 (09:06→21:00)
[2018-12-03] MEDS: BALSAM PERU/CASTOR OIL 60 GM OINT...G. TP SCH (09:06)
[2018-12-03 10:00] VITALS: BP_SYST 114
[2018-12-03 12:13] VITALS: BP_SYST 115
[2018-12-03 15:05] VITALS: BP_SYST 136
[2018-12-03 20:00] VITALS: BP_SYST 123
[2018-12-03] MEDS: ATORVASTATIN 20 MG TABLET GT SCH (20:58)
[2018-12-03] MEDS: DONEPEZIL HCL 5 MG TABLET (ARICEPT) GT SCH (20:59)
[2018-12-04 01:10] VITALS: BP_SYST 122
[2018-12-04 05:59] LABS: BASOPHILS # (AUTO) 0.1 K/uL (0.0-0.2); BASOPHILS % (AUTO) 0.5 % (0.0-2.0); EOSINOPHILS # (AUTO) 0.5 K/uL (0.0-0.4); EOSINOPHILS % (AUTO) 3.3 % (0.0-4.0); HEMATOCRIT 32.4 % (36-54); HEMOGLOBIN 10.5 g/dL (14.0-18.0); LYMPHOCYTES % (AUTO) 14.6 % (20.5-51.5); MEAN CORPUSCULAR HEMOGLOBIN 28 pg (27-31); MEAN CORPUSCULAR HGB CONC 32 % (32-36); MEAN CORPUSCULAR VOLUME 87 fL (79.0-98.0); MONOCYTES # (AUTO) 1.1 K/uL (0.0-1.0); MONOCYTES % (AUTO) 7.8 % (1.7-9.3); NEUTROPHILS # (AUTO) 10.2 K/uL (1.8-7.7); NEUTROPHILS % (AUTO) 73.8 % (40.0-70.0); PLATELET COUNT (AUTO) 353 K/uL (130-430); RED BLOOD CELL COUNT(AUTO) 3.74 MIL/uL (4.2-6.2); RED CELL DISTRIBUTION WIDTH 17.3 % (9.0-15.0); WHITE BLOOD COUNT (AUTO) 13.9 K/uL (4.8-10.8)
[2018-12-04 06:42] LABS: ALANINE AMINOTRANSFERASE 44 U/L (12-78); ALBUMIN 1.9 g/dL (3.4-4.8); ANION GAP 7 (5-15); ASPARTATE AMINOTRANSFERASE 39 U/L (10-37); CALCIUM 9.4 mg/dL (8.4-11.0); CHLORIDE 104 mmol/L (98-107); GLUCOSE 138 mg/dL (70-99); POTASSIUM 3.9 mmol/L (3.5-5.1); SODIUM SERUM 138 mmol/L (136-145); TOTAL BILIRUBIN 0.3 mg/dL (0.0-1.0); UREA NITROGEN, BLOOD 60 mg/dL (8-21)
[2018-12-04 08:09] VITALS: BP_SYST 146
[2018-12-04] MEDS: MULTIVIT-MINERALS/FERROUS GLUC 15 ML UDC GT SCH ×2 (08:47→20:38)
[2018-12-04] MEDS: DOCUSATE SODIUM 100 MG/10 ML UDC GT SCH (08:48)
[2018-12-04] MEDS: LACOSAMIDE 100 MG TABLET GT SCH ×2 (08:48→20:36)
[2018-12-04] MEDS: levETIRAcetam 500 MG TABLET GT SCH ×2 (08:48→20:35)
[2018-12-04] MEDS: FAMOTIDINE 20 MG TABLET GT SCH (08:48)
[2018-12-04] MEDS: LACTOBACILLUS RHAMNOSUS GG 1 CAP CAPSULE GT SCH ×2 (08:48→20:35)
[2018-12-04] MEDS: DILTIAZEM HCL 30 MG TABLET GT SCH ×4 (08:48→20:37)
[2018-12-04] MEDS: CHOLECALCIFEROL (VITAMIN D3) 2,000 UNIT TABLET GT SCH (08:49)
[2018-12-04] MEDS: METOPROLOL TARTRATE 50 MG TABLET GT SCH ×2 (08:49→20:39)
[2018-12-04] MEDS: LATANOPROST 2.5 ML DROPS (XALATAN) OP SCH (08:50)
[2018-12-04] MEDS: MINERAL OIL/PETROLATUM,WHITE 113 GM CREAM.GM. TP SCH ×2 (08:50→20:45)
[2018-12-04] MEDS: APIXABAN 2.5 MG TABLET GT SCH ×2 (08:51→20:52)
[2018-12-04] MEDS: BALSAM PERU/CASTOR OIL 60 GM OINT...G. TP SCH (08:51)
[2018-12-04 12:43] VITALS: BP_SYST 139
[2018-12-04 16:32] VITALS: BP_SYST 120
[2018-12-04 20:30] VITALS: BP_SYST 137
[2018-12-04] MEDS: DONEPEZIL HCL 5 MG TABLET (ARICEPT) GT SCH (20:35)
[2018-12-04] MEDS: ATORVASTATIN 20 MG TABLET GT SCH (20:35)
[2018-12-05 00:33] VITALS: BP_SYST 140
[2018-12-05 08:07] VITALS: BP_SYST 130
[2018-12-05] MEDS: MINERAL OIL/PETROLATUM,WHITE 113 GM CREAM.GM. TP SCH ×2 (08:08→22:47)
[2018-12-05] MEDS: MULTIVIT-MINERALS/FERROUS GLUC 15 ML UDC GT SCH ×2 (08:09→20:24)
[2018-12-05] MEDS: CHOLECALCIFEROL (VITAMIN D3) 2,000 UNIT TABLET GT SCH (08:09)
[2018-12-05] MEDS: DOCUSATE SODIUM 100 MG/10 ML UDC GT SCH (08:09)
[2018-12-05] MEDS: LATANOPROST 2.5 ML DROPS (XALATAN) OP SCH (08:09)
[2018-12-05] MEDS: BALSAM PERU/CASTOR OIL 60 GM OINT...G. TP SCH (08:09)
[2018-12-05] MEDS: FAMOTIDINE 20 MG TABLET GT SCH (08:09)
[2018-12-05] MEDS: levETIRAcetam 500 MG TABLET GT SCH ×2 (08:09→20:22)
[2018-12-05] MEDS: METOPROLOL TARTRATE 50 MG TABLET GT SCH ×2 (08:09→20:23)
[2018-12-05] MEDS: LACOSAMIDE 100 MG TABLET GT SCH ×2 (08:10→20:21)
[2018-12-05] MEDS: DILTIAZEM HCL 30 MG TABLET GT SCH ×4 (08:10→20:24)
[2018-12-05] MEDS: LACTOBACILLUS RHAMNOSUS GG 1 CAP CAPSULE GT SCH ×2 (08:10→20:21)
[2018-12-05] MEDS: APIXABAN 2.5 MG TABLET GT SCH ×2 (08:11→20:49)
[2018-12-05 12:42] VITALS: BP_SYST 135
[2018-12-05 16:07] VITALS: BP_SYST 146
[2018-12-05 20:00] VITALS: BP_SYST 129
[2018-12-05] MEDS: ATORVASTATIN 20 MG TABLET GT SCH (20:22)
[2018-12-05] MEDS: DONEPEZIL HCL 5 MG TABLET (ARICEPT) GT SCH (20:22)
[2018-12-06 00:16] VITALS: BP_SYST 109
[2018-12-06 08:00] VITALS: BP_SYST 141
[2018-12-06] MEDS: LACOSAMIDE 100 MG TABLET GT SCH ×2 (08:23→21:50)
[2018-12-06] MEDS: LATANOPROST 2.5 ML DROPS (XALATAN) OP SCH (08:23)
[2018-12-06] MEDS: BALSAM PERU/CASTOR OIL 60 GM OINT...G. TP SCH (08:23)
[2018-12-06] MEDS: MULTIVIT-MINERALS/FERROUS GLUC 15 ML UDC GT SCH ×2 (08:23→21:51)
[2018-12-06] MEDS: DOCUSATE SODIUM 100 MG/10 ML UDC GT SCH (08:23)
[2018-12-06] MEDS: APIXABAN 2.5 MG TABLET GT SCH ×2 (08:24→21:51)
[2018-12-06] MEDS: levETIRAcetam 500 MG TABLET GT SCH ×2 (08:24→21:49)
[2018-12-06] MEDS: LACTOBACILLUS RHAMNOSUS GG 1 CAP CAPSULE GT SCH ×2 (08:24→21:49)
[2018-12-06] MEDS: FAMOTIDINE 20 MG TABLET GT SCH (08:24)
[2018-12-06] MEDS: DILTIAZEM HCL 30 MG TABLET GT SCH ×4 (08:24→21:50)
[2018-12-06] MEDS: METOPROLOL TARTRATE 50 MG TABLET GT SCH ×2 (08:25→21:50)
[2018-12-06] MEDS: CHOLECALCIFEROL (VITAMIN D3) 2,000 UNIT TABLET GT SCH (08:25)
[2018-12-06] MEDS: MINERAL OIL/PETROLATUM,WHITE 113 GM CREAM.GM. TP SCH ×2 (08:26→21:52)
[2018-12-06 11:37] VITALS: BP_SYST 126
[2018-12-06] MEDS ORDERED: DOXYCYCLINE HYCLATE 100 MG CAPSULE PO ONE (14:30)
[2018-12-06] MEDS ORDERED: SILVER SULFADIAZINE 1%, 25 GM TOPICAL CREAM (SSD) TP ONE (14:30)
[2018-12-06] MEDS ORDERED: LEVOFLOXACIN 500 MG TABLET GT ONE (15:30)
[2018-12-06 16:02] VITALS: BP_SYST 130
[2018-12-06] MEDS: CLINDAMYCIN HCL 150 MG CAPSULE GT SCH ×2 (17:15→23:26)
[2018-12-06 20:00] VITALS: BP_SYST 126
[2018-12-06] MEDS ORDERED: DOXYCYCLINE HYCLATE 100 MG CAPSULE PO SCH (21:00)
[2018-12-06] MEDS: ATORVASTATIN 20 MG TABLET GT SCH (21:49)
[2018-12-06] MEDS: DONEPEZIL HCL 5 MG TABLET (ARICEPT) GT SCH (21:50)
[2018-12-06] MEDS: SILVER SULFADIAZINE 1%, 25 GM TOPICAL CREAM (SSD) TP SCH (21:52)
[2018-12-07 00:34] VITALS: BP_SYST 126
[2018-12-07] MEDS: CLINDAMYCIN HCL 150 MG CAPSULE GT SCH ×4 (05:14→23:22)
[2018-12-07 07:39] VITALS: BP_SYST 139
[2018-12-07] MEDS ORDERED: LEVOFLOXACIN 500 MG TABLET GT SCH (09:00)
[2018-12-07] MEDS: DOCUSATE SODIUM 100 MG/10 ML UDC GT SCH (11:05)
[2018-12-07] MEDS: DILTIAZEM HCL 30 MG TABLET GT SCH ×4 (11:06→21:01)
[2018-12-07] MEDS: CHOLECALCIFEROL (VITAMIN D3) 2,000 UNIT TABLET GT SCH (11:06)
[2018-12-07] MEDS: APIXABAN 2.5 MG TABLET GT SCH ×2 (11:07→21:05)
[2018-12-07] MEDS: FAMOTIDINE 20 MG TABLET GT SCH (11:08)
[2018-12-07] MEDS: levETIRAcetam 500 MG TABLET GT SCH ×2 (11:08→21:00)
[2018-12-07] MEDS: LACTOBACILLUS RHAMNOSUS GG 1 CAP CAPSULE GT SCH ×2 (11:08→21:00)
[2018-12-07] MEDS: BALSAM PERU/CASTOR OIL 60 GM OINT...G. TP SCH (11:09)
[2018-12-07] MEDS: SILVER SULFADIAZINE 1%, 25 GM TOPICAL CREAM (SSD) TP SCH ×2 (11:10→21:02)
[2018-12-07] MEDS: MINERAL OIL/PETROLATUM,WHITE 113 GM CREAM.GM. TP SCH ×2 (11:10→21:02)
[2018-12-07 11:11] VITALS: BP_SYST 149
[2018-12-07] MEDS: METOPROLOL TARTRATE 50 MG TABLET GT SCH ×2 (12:45→21:00)
[2018-12-07] MEDS: LATANOPROST 2.5 ML DROPS (XALATAN) OP SCH (12:46)
[2018-12-07] MEDS: MULTIVIT-MINERALS/FERROUS GLUC 15 ML UDC GT SCH ×2 (12:46→21:00)
[2018-12-07 15:47] VITALS: BP_SYST 132
[2018-12-07 20:00] VITALS: BP_SYST 146
[2018-12-07] MEDS: ATORVASTATIN 20 MG TABLET GT SCH (20:59)
[2018-12-07] MEDS: DONEPEZIL HCL 5 MG TABLET (ARICEPT) GT SCH (21:00)
[2018-12-07] MEDS: LACOSAMIDE 100 MG TABLET PO SCH (21:00)
[2018-12-08 00:54] VITALS: BP_SYST 122
[2018-12-08] MEDS: CLINDAMYCIN HCL 150 MG CAPSULE GT SCH ×2 (06:05→11:36)
[2018-12-08] MEDS: LACTOBACILLUS RHAMNOSUS GG 1 CAP CAPSULE GT SCH ×2 (09:40→21:25)
[2018-12-08] MEDS: levETIRAcetam 500 MG TABLET GT SCH ×2 (09:40→21:25)
[2018-12-08] MEDS: CHOLECALCIFEROL (VITAMIN D3) 2,000 UNIT TABLET GT SCH (09:40)
[2018-12-08] MEDS: FAMOTIDINE 20 MG TABLET GT SCH (09:40)
[2018-12-08] MEDS: LATANOPROST 2.5 ML DROPS (XALATAN) OP SCH (09:40)
[2018-12-08] MEDS: LACOSAMIDE 100 MG TABLET PO SCH ×2 (09:40→21:25)
[2018-12-08] MEDS: METOPROLOL TARTRATE 50 MG TABLET GT SCH ×2 (09:41→21:26)
[2018-12-08] MEDS: DOCUSATE SODIUM 100 MG/10 ML UDC GT SCH (09:41)
[2018-12-08] MEDS: DILTIAZEM HCL 30 MG TABLET GT SCH ×4 (09:42→21:25)
[2018-12-08] MEDS: BALSAM PERU/CASTOR OIL 60 GM OINT...G. TP SCH (09:42)
[2018-12-08] MEDS: SILVER SULFADIAZINE 1%, 25 GM TOPICAL CREAM (SSD) TP SCH ×2 (09:43→21:27)
[2018-12-08] MEDS: MINERAL OIL/PETROLATUM,WHITE 113 GM CREAM.GM. TP SCH ×2 (09:43→21:28)
[2018-12-08 11:27] VITALS: BP_SYST 133
[2018-12-08] MEDS: MULTIVIT-MINERALS/FERROUS GLUC 15 ML UDC GT SCH ×2 (14:55→21:26)
[2018-12-08 15:58] VITALS: BP_SYST 114
[2018-12-08] MEDS: COLISTIMETHATE SODIUM 75 MG in NS 50 ML IV SCH (17:06)
[2018-12-08 20:00] VITALS: BP_SYST 148
[2018-12-08] MEDS: ATORVASTATIN 20 MG TABLET GT SCH (21:25)
[2018-12-08] MEDS: DONEPEZIL HCL 5 MG TABLET (ARICEPT) GT SCH (21:25)
[2018-12-08 23:12] VITALS: BP_SYST 130
[2018-12-09 08:02] VITALS: BP_SYST 131
[2018-12-09] MEDS: DOCUSATE SODIUM 100 MG/10 ML UDC GT SCH (09:19)
[2018-12-09] MEDS: FAMOTIDINE 20 MG TABLET GT SCH (09:20)
[2018-12-09] MEDS: DILTIAZEM HCL 30 MG TABLET GT SCH ×4 (09:20→23:06)
[2018-12-09] MEDS: LATANOPROST 2.5 ML DROPS (XALATAN) OP SCH (09:20)
[2018-12-09] MEDS: levETIRAcetam 500 MG TABLET GT SCH ×2 (09:20→23:05)
[2018-12-09] MEDS: LACTOBACILLUS RHAMNOSUS GG 1 CAP CAPSULE GT SCH ×2 (09:20→23:05)
[2018-12-09] MEDS: LACOSAMIDE 100 MG TABLET PO SCH ×2 (09:20→23:05)
[2018-12-09] MEDS: CHOLECALCIFEROL (VITAMIN D3) 2,000 UNIT TABLET GT SCH (09:20)
[2018-12-09] MEDS: METOPROLOL TARTRATE 50 MG TABLET GT SCH ×2 (09:21→23:07)
[2018-12-09] MEDS: SILVER SULFADIAZINE 1%, 25 GM TOPICAL CREAM (SSD) TP SCH ×2 (09:25→23:13)
[2018-12-09] MEDS: BALSAM PERU/CASTOR OIL 60 GM OINT...G. TP SCH (09:26)
[2018-12-09] MEDS: MINERAL OIL/PETROLATUM,WHITE 113 GM CREAM.GM. TP SCH ×2 (09:26→23:12)
[2018-12-09 11:12] VITALS: BP_SYST 116
[2018-12-09 11:15] VITALS: BP_SYST 116
[2018-12-09] MEDS: MULTIVIT-MINERALS/FERROUS GLUC 15 ML UDC GT SCH ×2 (13:28→23:09)
[2018-12-09] MEDS: COLISTIMETHATE SODIUM 75 MG in NS 50 ML IV SCH (15:11)
[2018-12-09 15:22] VITALS: BP_SYST 109
[2018-12-09] MEDS: cefTRIAXone 1 GM in D5W 50 ML IV SCH (18:02)
[2018-12-09 20:46] VITALS: BP_SYST 117
[2018-12-09] MEDS: VANCOMYCIN HCL 1,750 MG in NS 500 ML IV SCH (23:02)
[2018-12-09] MEDS: ATORVASTATIN 20 MG TABLET GT SCH (23:05)
[2018-12-09] MEDS: DONEPEZIL HCL 5 MG TABLET (ARICEPT) GT SCH (23:05)
[2018-12-09] MEDS: ENOXAPARIN SODIUM 40 MG/0.4 ML SYRINGE SUBCUT SCH (23:11)
[2018-12-10 00:18] VITALS: BP_SYST 132
[2018-12-10 07:23] LABS: BASOPHILS # (AUTO) 0.1 K/uL (0.0-0.2); BASOPHILS % (AUTO) 0.6 % (0.0-2.0); EOSINOPHILS # (AUTO) 0.4 K/uL (0.0-0.4); EOSINOPHILS % (AUTO) 2.8 % (0.0-4.0); HEMATOCRIT 31.3 % (36-54); HEMOGLOBIN 9.9 g/dL (14.0-18.0); LYMPHOCYTES # (AUTO) 2.2 K/uL (1.0-5.5); LYMPHOCYTES % (AUTO) 16.8 % (20.5-51.5); MEAN CORPUSCULAR HEMOGLOBIN 28 pg (27-31); MEAN CORPUSCULAR HGB CONC 32 % (32-36); MEAN CORPUSCULAR VOLUME 87 fL (79.0-98.0); MONOCYTES # (AUTO) 1.1 K/uL (0.0-1.0); MONOCYTES % (AUTO) 8.5 % (1.7-9.3); NEUTROPHILS # (AUTO) 9.3 K/uL (1.8-7.7); NEUTROPHILS % (AUTO) 71.3 % (40.0-70.0); PLATELET COUNT (AUTO) 330 K/uL (130-430); RED CELL DISTRIBUTION WIDTH 16.9 % (9.0-15.0); WHITE BLOOD COUNT (AUTO) 13.1 K/uL (4.8-10.8)
[2018-12-10 07:48] LABS: ANION GAP 11 (5-15); CALCIUM 9.1 mg/dL (8.4-11.0); CHLORIDE 108 mmol/L (98-107); GLUCOSE 132 mg/dL (70-99); POTASSIUM 3.9 mmol/L (3.5-5.1); SODIUM SERUM 145 mmol/L (136-145); UREA NITROGEN, BLOOD 58 mg/dL (8-21)
[2018-12-10 07:54] LABS: ALANINE AMINOTRANSFERASE 38 U/L (12-78); ALBUMIN 1.7 g/dL (3.4-4.8); ASPARTATE AMINOTRANSFERASE 34 U/L (10-37); TOTAL BILIRUBIN 0.2 mg/dL (0.0-1.0)
[2018-12-10 08:00] VITALS: BP_SYST 117
[2018-12-10] MEDS: LATANOPROST 2.5 ML DROPS (XALATAN) OP SCH (09:28)
[2018-12-10] MEDS: DOCUSATE SODIUM 100 MG/10 ML UDC GT SCH (09:28)
[2018-12-10] MEDS: LACTOBACILLUS RHAMNOSUS GG 1 CAP CAPSULE GT SCH ×2 (09:29→22:25)
[2018-12-10] MEDS: MULTIVIT-MINERALS/FERROUS GLUC 15 ML UDC GT SCH ×2 (09:29→22:26)
[2018-12-10] MEDS: CHOLECALCIFEROL (VITAMIN D3) 2,000 UNIT TABLET GT SCH (09:30)
[2018-12-10] MEDS: METOPROLOL TARTRATE 50 MG TABLET GT SCH ×2 (09:30→22:26)
[2018-12-10] MEDS: levETIRAcetam 500 MG TABLET GT SCH ×2 (09:30→22:26)
[2018-12-10] MEDS: FAMOTIDINE 20 MG TABLET GT SCH (09:30)
[2018-12-10] MEDS: DILTIAZEM HCL 30 MG TABLET GT SCH ×4 (09:30→22:25)
[2018-12-10] MEDS: SILVER SULFADIAZINE 1%, 25 GM TOPICAL CREAM (SSD) TP SCH ×2 (09:31→22:28)
[2018-12-10] MEDS: LACOSAMIDE 100 MG TABLET PO SCH ×2 (09:31→22:25)
[2018-12-10] MEDS: MINERAL OIL/PETROLATUM,WHITE 113 GM CREAM.GM. TP SCH ×2 (09:32→22:28)
[2018-12-10] MEDS: BALSAM PERU/CASTOR OIL 60 GM OINT...G. TP SCH (09:32)
[2018-12-10 11:23] VITALS: BP_SYST 122
[2018-12-10 15:36] VITALS: BP_SYST 137
[2018-12-10] MEDS: cefTRIAXone 1 GM in D5W 50 ML IV SCH (17:40)
[2018-12-10 20:00] VITALS: BP_SYST 129
[2018-12-10] MEDS: DONEPEZIL HCL 5 MG TABLET (ARICEPT) GT SCH (22:25)
[2018-12-10] MEDS: ATORVASTATIN 20 MG TABLET GT SCH (22:25)
[2018-12-10] MEDS: ENOXAPARIN SODIUM 40 MG/0.4 ML SYRINGE SUBCUT SCH (22:27)
[2018-12-10] MEDS: VANCOMYCIN HCL 1,750 MG in NS 500 ML IV SCH (22:28)
[2018-12-11 00:28] VITALS: BP_SYST 129
[2018-12-11 08:04] VITALS: BP_SYST 104
[2018-12-11] MEDS: levETIRAcetam 500 MG TABLET GT SCH ×2 (09:03→20:58)
[2018-12-11] MEDS: CHOLECALCIFEROL (VITAMIN D3) 2,000 UNIT TABLET GT SCH (09:03)
[2018-12-11] MEDS: DILTIAZEM HCL 30 MG TABLET GT SCH ×4 (09:03→21:00)
[2018-12-11] MEDS: FAMOTIDINE 20 MG TABLET GT SCH (09:03)
[2018-12-11] MEDS: LACTOBACILLUS RHAMNOSUS GG 1 CAP CAPSULE GT SCH ×2 (09:03→20:58)
[2018-12-11] MEDS: METOPROLOL TARTRATE 50 MG TABLET GT SCH ×2 (09:04→21:00)
[2018-12-11] MEDS: LACOSAMIDE 100 MG TABLET PO SCH ×2 (09:04→20:58)
[2018-12-11] MEDS: MULTIVIT-MINERALS/FERROUS GLUC 15 ML UDC GT SCH ×2 (09:04→21:01)
[2018-12-11] MEDS: DOCUSATE SODIUM 100 MG/10 ML UDC GT SCH (09:04)
[2018-12-11] MEDS: LATANOPROST 2.5 ML DROPS (XALATAN) OP SCH (09:04)
[2018-12-11] MEDS: SILVER SULFADIAZINE 1%, 25 GM TOPICAL CREAM (SSD) TP SCH ×2 (09:05→21:04)
[2018-12-11] MEDS: BALSAM PERU/CASTOR OIL 60 GM OINT...G. TP SCH (09:05)
[2018-12-11] MEDS: MINERAL OIL/PETROLATUM,WHITE 113 GM CREAM.GM. TP SCH ×2 (09:06→21:04)
[2018-12-11 09:11] VITALS: BP_SYST 145
[2018-12-11 11:33] VITALS: BP_SYST 117
[2018-12-11 15:30] VITALS: BP_SYST 121
[2018-12-11] MEDS: cefTRIAXone 1 GM in D5W 50 ML IV SCH (17:03)
[2018-12-11] MEDS: VANCOMYCIN HCL 1,750 MG in NS 500 ML IV SCH (20:58)
[2018-12-11] MEDS: ATORVASTATIN 20 MG TABLET GT SCH (20:58)
[2018-12-11] MEDS: DONEPEZIL HCL 5 MG TABLET (ARICEPT) GT SCH (21:00)
[2018-12-11] MEDS: ENOXAPARIN SODIUM 40 MG/0.4 ML SYRINGE SUBCUT SCH (21:03)
[2018-12-12 00:34] VITALS: BP_SYST 131
[2018-12-12 08:00] VITALS: BP_SYST 129
[2018-12-12] MEDS: DOCUSATE SODIUM 100 MG/10 ML UDC GT SCH (09:53)
[2018-12-12] MEDS: CHOLECALCIFEROL (VITAMIN D3) 2,000 UNIT TABLET GT SCH (09:53)
[2018-12-12] MEDS: levETIRAcetam 500 MG TABLET GT SCH ×2 (09:53→21:06)
[2018-12-12] MEDS: METOPROLOL TARTRATE 50 MG TABLET GT SCH ×2 (09:53→21:06)
[2018-12-12] MEDS: MULTIVIT-MINERALS/FERROUS GLUC 15 ML UDC GT SCH ×2 (09:54→21:05)
[2018-12-12] MEDS: LACTOBACILLUS RHAMNOSUS GG 1 CAP CAPSULE GT SCH ×2 (09:54→21:04)
[2018-12-12] MEDS: DILTIAZEM HCL 30 MG TABLET GT SCH ×4 (09:54→21:05)
[2018-12-12] MEDS: LACOSAMIDE 100 MG TABLET PO SCH ×2 (09:54→21:04)
[2018-12-12] MEDS: LATANOPROST 2.5 ML DROPS (XALATAN) OP SCH (09:54)
[2018-12-12] MEDS: FAMOTIDINE 20 MG TABLET GT SCH (09:55)
[2018-12-12] MEDS: SILVER SULFADIAZINE 1%, 25 GM TOPICAL CREAM (SSD) TP SCH ×2 (09:56→21:07)
[2018-12-12] MEDS: BALSAM PERU/CASTOR OIL 60 GM OINT...G. TP SCH (09:56)
[2018-12-12] MEDS: MINERAL OIL/PETROLATUM,WHITE 113 GM CREAM.GM. TP SCH ×2 (09:56→21:07)
[2018-12-12 14:11] VITALS: BP_SYST 131
[2018-12-12 16:12] VITALS: BP_SYST 126
[2018-12-12] MEDS: cefTRIAXone 1 GM in D5W 50 ML IV SCH (17:49)
[2018-12-12] MEDS: VANCOMYCIN HCL 1,250 MG in NS 250 ML IV SCH (19:49)
[2018-12-12 20:00] VITALS: BP_SYST 126
[2018-12-12] MEDS: ENOXAPARIN SODIUM 40 MG/0.4 ML SYRINGE SUBCUT SCH (21:04)
[2018-12-12] MEDS: DONEPEZIL HCL 5 MG TABLET (ARICEPT) GT SCH (21:06)
[2018-12-12] MEDS: ATORVASTATIN 20 MG TABLET GT SCH (21:06)
[2018-12-13 01:57] VITALS: BP_SYST 126
[2018-12-13 05:44] LABS: BASOPHILS % (AUTO) 0.4 % (0.0-2.0); EOSINOPHILS # (AUTO) 0.3 K/uL (0.0-0.4); EOSINOPHILS % (AUTO) 2.4 % (0.0-4.0); HEMATOCRIT 28.7 % (36-54); HEMOGLOBIN 9.1 g/dL (14.0-18.0); LYMPHOCYTES # (AUTO) 1.7 K/uL (1.0-5.5); LYMPHOCYTES % (AUTO) 14.5 % (20.5-51.5); MEAN CORPUSCULAR HEMOGLOBIN 27 pg (27-31); MEAN CORPUSCULAR HGB CONC 32 % (32-36); MEAN CORPUSCULAR VOLUME 86 fL (79.0-98.0); MONOCYTES % (AUTO) 9.1 % (1.7-9.3); NEUTROPHILS # (AUTO) 8.5 K/uL (1.8-7.7); NEUTROPHILS % (AUTO) 73.6 % (40.0-70.0); PLATELET COUNT (AUTO) 309 K/uL (130-430); RED BLOOD CELL COUNT(AUTO) 3.34 MIL/uL (4.2-6.2); RED CELL DISTRIBUTION WIDTH 17.2 % (9.0-15.0); WHITE BLOOD COUNT (AUTO) 11.5 K/uL (4.8-10.8)
[2018-12-13 06:01] LABS: INR 1.1 (0.80-1.20); PROTHROMBIN TIME 11.4 SECS (9.5-12.5)
[2018-12-13 06:47] LABS: ANION GAP 8 (5-15); CALCIUM 9.3 mg/dL (8.4-11.0); CHLORIDE 109 mmol/L (98-107); CREATININE 1.03 mg/dL (0.55-1.30); GLUCOSE 129 mg/dL (70-99); POTASSIUM 3.6 mmol/L (3.5-5.1); SODIUM SERUM 142 mmol/L (136-145); UREA NITROGEN, BLOOD 51 mg/dL (8-21)
[2018-12-13 08:00] VITALS: BP_SYST 141
[2018-12-13] MEDS: DOCUSATE SODIUM 100 MG/10 ML UDC GT SCH (09:00)
[2018-12-13] MEDS: MULTIVIT-MINERALS/FERROUS GLUC 15 ML UDC GT SCH ×2 (09:07→22:08)
[2018-12-13] MEDS: CHOLECALCIFEROL (VITAMIN D3) 2,000 UNIT TABLET GT SCH (09:07)
[2018-12-13] MEDS: levETIRAcetam 500 MG TABLET GT SCH ×2 (09:07→22:12)
[2018-12-13] MEDS: LACOSAMIDE 100 MG TABLET PO SCH ×2 (09:07→22:12)
[2018-12-13] MEDS: FAMOTIDINE 20 MG TABLET GT SCH (09:08)
[2018-12-13] MEDS: LACTOBACILLUS RHAMNOSUS GG 1 CAP CAPSULE GT SCH ×2 (09:08→22:09)
[2018-12-13] MEDS: LATANOPROST 2.5 ML DROPS (XALATAN) OP SCH (09:08)
[2018-12-13] MEDS: BALSAM PERU/CASTOR OIL 60 GM OINT...G. TP SCH ×2 (09:09→22:12)
[2018-12-13] MEDS: METOPROLOL TARTRATE 50 MG TABLET GT SCH ×2 (09:09→22:13)
[2018-12-13] MEDS: MINERAL OIL/PETROLATUM,WHITE 113 GM CREAM.GM. TP SCH ×2 (09:09→22:12)
[2018-12-13] MEDS: DILTIAZEM HCL 30 MG TABLET GT SCH ×4 (09:10→22:14)
[2018-12-13] MEDS: SILVER SULFADIAZINE 1%, 25 GM TOPICAL CREAM (SSD) TP SCH ×2 (09:10→22:14)
[2018-12-13 10:19] VITALS: BP_SYST 141
[2018-12-13 11:11] VITALS: BP_SYST 118
[2018-12-13 15:39] VITALS: BP_SYST 118
[2018-12-13] MEDS: cefTRIAXone 1 GM in D5W 50 ML IV SCH (17:54)
[2018-12-13 19:50] VITALS: BP_SYST 126
[2018-12-13] MEDS: VANCOMYCIN HCL 1,250 MG in NS 250 ML IV SCH (22:08)
[2018-12-13] MEDS: ATORVASTATIN 20 MG TABLET GT SCH (22:09)
[2018-12-13] MEDS: DONEPEZIL HCL 5 MG TABLET (ARICEPT) GT SCH (22:13)
[2018-12-13] MEDS: ENOXAPARIN SODIUM 40 MG/0.4 ML SYRINGE SUBCUT SCH (22:15)
[2018-12-14 00:58] VITALS: BP_SYST 141
[2018-12-14 08:00] VITALS: BP_SYST 113
[2018-12-14] MEDS: DOCUSATE SODIUM 100 MG/10 ML UDC GT SCH (09:17)
[2018-12-14] MEDS: MULTIVIT-MINERALS/FERROUS GLUC 15 ML UDC GT SCH ×2 (09:18→21:59)
[2018-12-14] MEDS: LATANOPROST 2.5 ML DROPS (XALATAN) OP SCH (09:19)
[2018-12-14] MEDS: LACTOBACILLUS RHAMNOSUS GG 1 CAP CAPSULE GT SCH ×2 (09:20→21:55)
[2018-12-14] MEDS: LACOSAMIDE 100 MG TABLET PO SCH ×2 (09:20→21:55)
[2018-12-14] MEDS: FAMOTIDINE 20 MG TABLET GT SCH (09:20)
[2018-12-14] MEDS: levETIRAcetam 500 MG TABLET GT SCH ×2 (09:20→21:55)
[2018-12-14] MEDS: METOPROLOL TARTRATE 50 MG TABLET GT SCH ×2 (09:21→21:56)
[2018-12-14] MEDS: DILTIAZEM HCL 30 MG TABLET GT SCH ×4 (09:21→21:57)
[2018-12-14] MEDS: CHOLECALCIFEROL (VITAMIN D3) 2,000 UNIT TABLET GT SCH (09:22)
[2018-12-14] MEDS: SILVER SULFADIAZINE 1%, 25 GM TOPICAL CREAM (SSD) TP SCH ×2 (09:28→22:00)
[2018-12-14] MEDS: MINERAL OIL/PETROLATUM,WHITE 113 GM CREAM.GM. TP SCH ×2 (09:29→22:00)
[2018-12-14 11:03] VITALS: BP_SYST 126
[2018-12-14 15:16] VITALS: BP_SYST 127
[2018-12-14] MEDS: cefTRIAXone 1 GM in D5W 50 ML IV SCH (16:48)
[2018-12-14 21:01] VITALS: BP_SYST 122
[2018-12-14] MEDS: ATORVASTATIN 20 MG TABLET GT SCH (21:55)
[2018-12-14] MEDS: DONEPEZIL HCL 5 MG TABLET (ARICEPT) GT SCH (21:57)
[2018-12-14] MEDS: VANCOMYCIN HCL 1,250 MG in NS 250 ML IV SCH (21:58)
[2018-12-14] MEDS: ENOXAPARIN SODIUM 40 MG/0.4 ML SYRINGE SUBCUT SCH (21:59)
[2018-12-15 00:27] VITALS: BP_SYST 131
[2018-12-15 08:00] VITALS: BP_SYST 130
[2018-12-15] MEDS: DILTIAZEM HCL 30 MG TABLET GT SCH ×4 (10:20→21:33)
[2018-12-15] MEDS: LACTOBACILLUS RHAMNOSUS GG 1 CAP CAPSULE GT SCH ×2 (10:20→21:32)
[2018-12-15] MEDS: FAMOTIDINE 20 MG TABLET GT SCH (10:20)
[2018-12-15] MEDS: DOCUSATE SODIUM 100 MG/10 ML UDC GT SCH (10:21)
[2018-12-15] MEDS: CHOLECALCIFEROL (VITAMIN D3) 2,000 UNIT TABLET GT SCH (10:21)
[2018-12-15] MEDS: METOPROLOL TARTRATE 50 MG TABLET GT SCH ×2 (10:21→21:34)
[2018-12-15] MEDS: levETIRAcetam 500 MG TABLET GT SCH ×2 (10:21→21:32)
[2018-12-15] MEDS: SILVER SULFADIAZINE 1%, 25 GM TOPICAL CREAM (SSD) TP SCH ×2 (10:28→21:35)
[2018-12-15] MEDS: BALSAM PERU/CASTOR OIL 60 GM OINT...G. TP SCH (10:28)
[2018-12-15] MEDS: MINERAL OIL/PETROLATUM,WHITE 113 GM CREAM.GM. TP SCH ×2 (10:29→21:35)
[2018-12-15] MEDS: LATANOPROST 2.5 ML DROPS (XALATAN) OP SCH (10:34)
[2018-12-15] MEDS: MULTIVIT-MINERALS/FERROUS GLUC 15 ML UDC GT SCH ×2 (10:35→21:30)
[2018-12-15] MEDS: LACOSAMIDE 100 MG TABLET PO SCH ×2 (10:36→21:34)
[2018-12-15 11:31] VITALS: BP_SYST 142
[2018-12-15 15:33] VITALS: BP_SYST 152
[2018-12-15] MEDS: cefTRIAXone 1 GM in D5W 50 ML IV SCH (18:11)
[2018-12-15 20:33] VITALS: BP_SYST 141
[2018-12-15] MEDS: ATORVASTATIN 20 MG TABLET GT SCH (21:32)
[2018-12-15] MEDS: VANCOMYCIN HCL 1,250 MG in NS 250 ML IV SCH (21:32)
[2018-12-15] MEDS: ENOXAPARIN SODIUM 40 MG/0.4 ML SYRINGE SUBCUT SCH (21:34)
[2018-12-15] MEDS: DONEPEZIL HCL 5 MG TABLET (ARICEPT) GT SCH (21:34)
[2018-12-16 00:17] VITALS: BP_SYST 127
[2018-12-16 08:00] VITALS: BP_SYST 140
[2018-12-16] MEDS: LACTOBACILLUS RHAMNOSUS GG 1 CAP CAPSULE GT SCH ×2 (09:00→22:32)
[2018-12-16] MEDS: DOCUSATE SODIUM 100 MG/10 ML UDC GT SCH (09:00)
[2018-12-16] MEDS: LACOSAMIDE 100 MG TABLET PO SCH ×2 (09:00→22:31)
[2018-12-16] MEDS: levETIRAcetam 500 MG TABLET GT SCH ×2 (09:00→22:32)
[2018-12-16] MEDS: CHOLECALCIFEROL (VITAMIN D3) 2,000 UNIT TABLET GT SCH (09:00)
[2018-12-16] MEDS: MULTIVIT-MINERALS/FERROUS GLUC 15 ML UDC GT SCH ×2 (09:00→22:32)
[2018-12-16] MEDS: FAMOTIDINE 20 MG TABLET GT SCH (09:00)
[2018-12-16] MEDS: DILTIAZEM HCL 30 MG TABLET GT SCH ×3 (09:47→17:00)
[2018-12-16] MEDS: METOPROLOL TARTRATE 50 MG TABLET GT SCH ×2 (09:47→22:32)
[2018-12-16] MEDS: LATANOPROST 2.5 ML DROPS (XALATAN) OP SCH ×2 (09:59→10:02)
[2018-12-16 11:23] VITALS: BP_SYST 135
[2018-12-16] MEDS: SILVER SULFADIAZINE 1%, 25 GM TOPICAL CREAM (SSD) TP SCH ×2 (13:00→22:32)
[2018-12-16] MEDS: MINERAL OIL/PETROLATUM,WHITE 113 GM CREAM.GM. TP SCH ×2 (13:00→22:32)
[2018-12-16 14:38] LABS: BASOPHILS # (AUTO) 0.1 K/uL (0.0-0.2); BASOPHILS % (AUTO) 0.5 % (0.0-2.0); EOSINOPHILS # (AUTO) 0.5 K/uL (0.0-0.4); EOSINOPHILS % (AUTO) 3.6 % (0.0-4.0); HEMATOCRIT 29.9 % (36-54); HEMOGLOBIN 9.5 g/dL (14.0-18.0); LYMPHOCYTES # (AUTO) 2.3 K/uL (1.0-5.5); LYMPHOCYTES % (AUTO) 18.1 % (20.5-51.5); MEAN CORPUSCULAR HEMOGLOBIN 27 pg (27-31); MEAN CORPUSCULAR HGB CONC 32 % (32-36); MEAN CORPUSCULAR VOLUME 87 fL (79.0-98.0); MONOCYTES % (AUTO) 7.6 % (1.7-9.3); NEUTROPHILS % (AUTO) 70.2 % (40.0-70.0); PLATELET COUNT (AUTO) 379 K/uL (130-430); RED BLOOD CELL COUNT(AUTO) 3.45 MIL/uL (4.2-6.2); RED CELL DISTRIBUTION WIDTH 17.5 % (9.0-15.0); WHITE BLOOD COUNT (AUTO) 12.8 K/uL (4.8-10.8)
[2018-12-16 14:46] LABS: INR 1.1 (0.80-1.20)
[2018-12-16 14:53] LABS: ALANINE AMINOTRANSFERASE 37 U/L (12-78); ALBUMIN 1.6 g/dL (3.4-4.8); ASPARTATE AMINOTRANSFERASE 30 U/L (10-37); CALCIUM 9.4 mg/dL (8.4-11.0); CHLORIDE 108 mmol/L (98-107); CREATININE 1.04 mg/dL (0.55-1.30); GLUCOSE 121 mg/dL (70-99); POTASSIUM 4.1 mmol/L (3.5-5.1); SODIUM SERUM 144 mmol/L (136-145); TOTAL BILIRUBIN 0.2 mg/dL (0.0-1.0); UREA NITROGEN, BLOOD 38 mg/dL (8-21)
[2018-12-16 15:10] LABS: ANION GAP 10 (5-15)
[2018-12-16 15:26] VITALS: BP_SYST 128
[2018-12-16] MEDS ORDERED: LR 1,000 ML IV SCH (18:44)
[2018-12-16] MEDS ORDERED: MORPHINE 4 MG/ML INJ. SYRINGE IVP PRN ×3 (18:45)
[2018-12-16] MEDS ORDERED: ONDANSETRON HCL 4 MG/2 ML VIAL IVP PRN (18:45)
[2018-12-16] MEDS ORDERED: POLYMYXIN 500,000/BACIT.10,000 UNITS in NS IRR 1 L IR ONE (18:48)
[2018-12-16] MEDS ORDERED: ONDANSETRON HCL 4 MG/2 ML VIAL ONE (19:50)
[2018-12-16] MEDS ORDERED: NS IRRIG SOLN 1000 ML IR ONE (19:50)
[2018-12-16] MEDS ORDERED: SEVOFLURANE 15 MIN GAS INH ONE (19:50)
[2018-12-16] MEDS ORDERED: MIDAZOLAM HCL 5 MG/ML VIAL (VERSED) IV ONE (19:50)
[2018-12-16] MEDS ORDERED: LR 1,000 ML IV.SOLN IV ONE (19:50)
[2018-12-16] MEDS ORDERED: fentaNYL CITRATE 250 MCG/5 ML AMP ONE (19:50)
[2018-12-16] MEDS ORDERED: MORPHINE 4 MG/ML INJ. SYRINGE ONE (20:13)
[2018-12-16] MEDS ORDERED: DILTIAZEM HCL 25 MG/5 ML VIAL IVP ONE ×2 (20:45→21:45)
[2018-12-16] MEDS ORDERED: DILTIAZEM HCL 25 MG/5 ML VIAL ONE (20:48)
[2018-12-16] MEDS ORDERED: DILTIAZEM HCL 60 MG TABLET GT SCH (21:00)
[2018-12-16] MEDS: DONEPEZIL HCL 5 MG TABLET (ARICEPT) GT SCH (22:31)
[2018-12-16] MEDS: ATORVASTATIN 20 MG TABLET GT SCH (22:31)
[2018-12-16] MEDS: NACL 0.9% 1,000 ML IV SCH (22:33)
[2018-12-16] MEDS: ACETAMINOPHEN 500 MG TABLET GT SCH (22:36)
[2018-12-16] MEDS: traMADol HCL HCL 50 MG TABLET (ULTRAM) GT SCH (22:36)
[2018-12-16] MEDS ORDERED: ACETAMINOPHEN 500 MG TABLET ONE (22:46)
[2018-12-16] MEDS ORDERED: traMADol HCL HCL 50 MG TABLET (ULTRAM) ONE (22:47)
[2018-12-16 23:00] VITALS: BP_SYST 149
[2018-12-17 00:25] VITALS: BP_SYST 98
[2018-12-17] MEDS: traMADol HCL HCL 50 MG TABLET (ULTRAM) GT SCH ×3 (06:21→22:55)
[2018-12-17] MEDS: ACETAMINOPHEN 500 MG TABLET GT SCH ×3 (06:21→22:55)
[2018-12-17] MEDS: DILTIAZEM HCL 60 MG TABLET GT SCH ×4 (06:23→17:43)
[2018-12-17 08:00] VITALS: BP_SYST 120
[2018-12-17] MEDS: MULTIVIT-MINERALS/FERROUS GLUC 15 ML UDC GT SCH ×2 (08:55→20:32)
[2018-12-17] MEDS: LACTOBACILLUS RHAMNOSUS GG 1 CAP CAPSULE GT SCH ×2 (08:55→20:29)
[2018-12-17] MEDS: DOCUSATE SODIUM 100 MG/10 ML UDC GT SCH (08:55)
[2018-12-17] MEDS: LATANOPROST 2.5 ML DROPS (XALATAN) OP SCH (08:55)
[2018-12-17] MEDS: METOPROLOL TARTRATE 50 MG TABLET GT SCH ×2 (08:55→20:30)
[2018-12-17] MEDS: CHOLECALCIFEROL (VITAMIN D3) 2,000 UNIT TABLET GT SCH (08:56)
[2018-12-17] MEDS: LACOSAMIDE 100 MG TABLET PO SCH (08:56)
[2018-12-17] MEDS: FAMOTIDINE 20 MG TABLET GT SCH (08:57)
[2018-12-17] MEDS: levETIRAcetam 500 MG TABLET GT SCH ×2 (08:57→20:29)
[2018-12-17] MEDS: MINERAL OIL/PETROLATUM,WHITE 113 GM CREAM.GM. TP SCH ×2 (08:58→20:32)
[2018-12-17] MEDS: SILVER SULFADIAZINE 1%, 25 GM TOPICAL CREAM (SSD) TP SCH ×2 (08:58→20:33)
[2018-12-17 11:26] VITALS: BP_SYST 119
[2018-12-17] MEDS: VANCOMYCIN HCL 1,250 MG in NS 250 ML IV SCH (11:31)
[2018-12-17] MEDS: NACL 0.9% 1,000 ML IV SCH (14:44)
[2018-12-17 15:33] VITALS: BP_SYST 115
[2018-12-17 20:27] VITALS: BP_SYST 127
[2018-12-17] MEDS: DONEPEZIL HCL 5 MG TABLET (ARICEPT) GT SCH (20:29)
[2018-12-17] MEDS: APIXABAN 2.5 MG TABLET PO SCH (20:30)
[2018-12-17] MEDS: ATORVASTATIN 20 MG TABLET GT SCH (20:30)
[2018-12-17 23:47] VITALS: BP_SYST 106
[2018-12-18] MEDS: DILTIAZEM HCL 60 MG TABLET GT SCH ×4 (00:19→21:04)
[2018-12-18] MEDS: traMADol HCL HCL 50 MG TABLET (ULTRAM) GT SCH ×3 (05:43→21:03)
[2018-12-18] MEDS: ACETAMINOPHEN 500 MG TABLET GT SCH ×3 (05:43→21:03)
[2018-12-18 08:05] VITALS: BP_SYST 122
[2018-12-18] MEDS: MULTIVIT-MINERALS/FERROUS GLUC 15 ML UDC GT SCH (09:30)
[2018-12-18] MEDS: APIXABAN 2.5 MG TABLET PO SCH ×2 (09:33→20:33)
[2018-12-18] MEDS: SILVER SULFADIAZINE 1%, 25 GM TOPICAL CREAM (SSD) TP SCH ×2 (09:35→20:38)
[2018-12-18] MEDS: MINERAL OIL/PETROLATUM,WHITE 113 GM CREAM.GM. TP SCH ×2 (09:36→20:37)
[2018-12-18 11:22] VITALS: BP_SYST 129
[2018-12-18 15:41] VITALS: BP_SYST 133
[2018-12-18] MEDS ORDERED: DOCUSATE SODIUM 100 MG/10 ML UDC PO PRN (15:45)
[2018-12-18] MEDS: NACL 0.9% 1,000 ML IV SCH (16:08)
[2018-12-18 20:00] VITALS: BP_SYST 135
[2018-12-18] MEDS: DONEPEZIL HCL 5 MG TABLET (ARICEPT) PO SCH (20:35)
[2018-12-18] MEDS: LACTOBACILLUS RHAMNOSUS GG 1 CAP CAPSULE PO SCH (20:35)
[2018-12-18] MEDS: ATORVASTATIN 20 MG TABLET PO SCH (20:35)
[2018-12-18] MEDS: METOPROLOL TARTRATE 50 MG TABLET PO SCH (20:35)
[2018-12-18] MEDS: LevETIRAcetam 500 MG/5 ML UDC ORAL LIQUID GT SCH (20:37)
[2018-12-18] MEDS: VANCOMYCIN HCL 1,250 MG in NS 250 ML IV SCH (23:22)
[2018-12-19 00:46] VITALS: BP_SYST 124
[2018-12-19] MEDS: ACETAMINOPHEN 500 MG TABLET GT SCH ×3 (05:23→21:19)
[2018-12-19] MEDS: traMADol HCL HCL 50 MG TABLET (ULTRAM) GT SCH ×3 (05:23→21:20)
[2018-12-19] MEDS: DILTIAZEM HCL 60 MG TABLET GT SCH ×3 (05:24→21:22)
[2018-12-19 08:06] VITALS: BP_SYST 117
[2018-12-19] MEDS: LevETIRAcetam 500 MG/5 ML UDC ORAL LIQUID GT SCH ×2 (09:34→21:32)
[2018-12-19] MEDS: LACTOBACILLUS RHAMNOSUS GG 1 CAP CAPSULE PO SCH ×2 (09:35→21:20)
[2018-12-19] MEDS: METOPROLOL TARTRATE 50 MG TABLET PO SCH ×2 (09:35→21:21)
[2018-12-19] MEDS: CHOLECALCIFEROL (VITAMIN D3) 2,000 UNIT TABLET PO SCH (09:36)
[2018-12-19] MEDS: FAMOTIDINE 20 MG TABLET PO SCH (09:36)
[2018-12-19] MEDS: MINERAL OIL/PETROLATUM,WHITE 113 GM CREAM.GM. TP SCH ×2 (09:36→21:24)
[2018-12-19] MEDS: SILVER SULFADIAZINE 1%, 25 GM TOPICAL CREAM (SSD) TP SCH ×2 (09:37→21:26)
[2018-12-19] MEDS: APIXABAN 2.5 MG TABLET PO SCH ×2 (09:40→21:33)
[2018-12-19 11:06] VITALS: BP_SYST 117
[2018-12-19 11:35] VITALS: BP_SYST 121
[2018-12-19 15:45] VITALS: BP_SYST 123
[2018-12-19] MEDS: NACL 0.9% 1,000 ML IV SCH (16:22)
[2018-12-19 21:17] VITALS: BP_SYST 146
[2018-12-19] MEDS: ATORVASTATIN 20 MG TABLET PO SCH (21:20)
[2018-12-19] MEDS: DONEPEZIL HCL 5 MG TABLET (ARICEPT) PO SCH (21:20)
[2018-12-20 00:53] VITALS: BP_SYST 107
[2018-12-20 05:25] VITALS: BP_SYST 119
[2018-12-20] MEDS: ACETAMINOPHEN 500 MG TABLET GT SCH ×2 (05:26→13:34)
[2018-12-20] MEDS: traMADol HCL HCL 50 MG TABLET (ULTRAM) GT SCH ×2 (05:27→13:34)
[2018-12-20] MEDS: DILTIAZEM HCL 60 MG TABLET GT SCH ×2 (05:28→13:36)
[2018-12-20 07:15] LABS: BASOPHILS # (AUTO) 0.1 K/uL (0.0-0.2); BASOPHILS % (AUTO) 0.5 % (0.0-2.0); EOSINOPHILS # (AUTO) 0.5 K/uL (0.0-0.4); EOSINOPHILS % (AUTO) 5.1 % (0.0-4.0); HEMATOCRIT 24.9 % (36-54); HEMOGLOBIN 7.9 g/dL (14.0-18.0); LYMPHOCYTES # (AUTO) 1.2 K/uL (1.0-5.5); LYMPHOCYTES % (AUTO) 12.1 % (20.5-51.5); MEAN CORPUSCULAR HEMOGLOBIN 28 pg (27-31); MEAN CORPUSCULAR HGB CONC 32 % (32-36); MEAN CORPUSCULAR VOLUME 87 fL (79.0-98.0); MONOCYTES # (AUTO) 0.8 K/uL (0.0-1.0); MONOCYTES % (AUTO) 8.7 % (1.7-9.3); NEUTROPHILS # (AUTO) 7.1 K/uL (1.8-7.7); NEUTROPHILS % (AUTO) 73.6 % (40.0-70.0); PLATELET COUNT (AUTO) 344 K/uL (130-430); RED BLOOD CELL COUNT(AUTO) 2.87 MIL/uL (4.2-6.2); RED CELL DISTRIBUTION WIDTH 17.1 % (9.0-15.0); WHITE BLOOD COUNT (AUTO) 9.7 K/uL (4.8-10.8)
[2018-12-20 07:25] LABS: ANION GAP 8 (5-15); CALCIUM 8.7 mg/dL (8.4-11.0); CHLORIDE 107 mmol/L (98-107); CREATININE 0.89 mg/dL (0.55-1.30); GLUCOSE 119 mg/dL (70-99); POTASSIUM 4.4 mmol/L (3.5-5.1); SODIUM SERUM 138 mmol/L (136-145); UREA NITROGEN, BLOOD 42 mg/dL (8-21)
[2018-12-20 08:36] VITALS: BP_SYST 124
[2018-12-20] MEDS: MINERAL OIL/PETROLATUM,WHITE 113 GM CREAM.GM. TP SCH (08:41)
[2018-12-20] MEDS: SILVER SULFADIAZINE 1%, 25 GM TOPICAL CREAM (SSD) TP SCH (08:43)
[2018-12-20] MEDS: CHOLECALCIFEROL (VITAMIN D3) 2,000 UNIT TABLET PO SCH (08:47)
[2018-12-20] MEDS: LACTOBACILLUS RHAMNOSUS GG 1 CAP CAPSULE PO SCH (08:47)
[2018-12-20] MEDS: FAMOTIDINE 20 MG TABLET PO SCH (08:47)
[2018-12-20] MEDS: METOPROLOL TARTRATE 50 MG TABLET PO SCH (08:48)
[2018-12-20] MEDS: APIXABAN 2.5 MG TABLET PO SCH (08:48)
[2018-12-20] MEDS: LevETIRAcetam 500 MG/5 ML UDC ORAL LIQUID GT SCH (08:49)
[2018-12-20] MEDS ORDERED: EPOETIN ALFA 4,000 UNITS/ML VIAL SUBCUT ONE (10:15)
[2018-12-20] MEDS ORDERED: SOD FERRIC GLUC COMPLEX/SUC 125 MG in NS 100 ML IV SCH (11:00)
[2018-12-20 12:00] VITALS: BP_SYST 128
[2018-12-20] MEDS: NACL 0.9% 1,000 ML IV SCH (13:34)
[2018-12-20 16:44] VITALS: BP_SYST 133
[2018-12-20 18:03] VITALS: BP_SYST 133
== END 2018-12-20 18:45 | DRG 853 ==
LOC: SED 19:19 → STU 23:05 → SMU 10-13 16:24 → STU 12-16 21:32 → SMU 12-19 11:04
PROVIDERS: ADMIT Internal Medicine; ATTEND Internal Medicine
PROC: 0Y6H0Z3 Detachment at Right Lower Leg, Low, Open Approach (ICD-10-PCS; principal; 2018-10-09 18:30)
PROC: 0DH63UZ Insertion of Feeding Device into Stomach, Percutaneous Approach (ICD-10-PCS; 2018-10-17)
PROC: 0Y6C0Z1 Detachment at Right Upper Leg, High, Open Approach (ICD-10-PCS; 2018-12-16)
DX: A41.9 Sepsis, unspecified organism (principal); M72.6 Necrotizing fasciitis; N17.0 Acute kidney failure with tubular necrosis; M86.8X7 Other osteomyelitis, ankle and foot; L03.115 Cellulitis of right lower limb; E11.52 Type 2 diabetes mellitus with diabetic peripheral angiopathy with gangrene; F23 Brief psychotic disorder; E87.0 Hyperosmolality and hypernatremia; D68.59 Other primary thrombophilia; T87.43 Infection of amputation stump, right lower extremity; I96 Gangrene, not elsewhere classified; L97.414 Non-pressure chronic ulcer of right heel and midfoot with necrosis of bone; E11.621 Type 2 diabetes mellitus with foot ulcer; I10 Essential (primary) hypertension; G40.909 Epilepsy, unspecified, not intractable, without status epilepticus; D64.9 Anemia, unspecified; R13.12 Dysphagia, oropharyngeal phase; T42.0X5A Adverse effect of hydantoin derivatives, initial encounter; E87.6 Hypokalemia; Z79.01 Long term (current) use of anticoagulants; Z79.899 Other long term (current) drug therapy; Y92.89 Other specified places as the place of occurrence of the external cause; I48.0 Paroxysmal atrial fibrillation; L89.152 Pressure ulcer of sacral region, stage 2; R13.10 Dysphagia, unspecified; R21 Rash and other nonspecific skin eruption; L23.9 Allergic contact dermatitis, unspecified cause; G30.9 Alzheimer's disease, unspecified; F02.80 Dementia in other diseases classified elsewhere, unspecified severity, without behavioral disturbance, psychotic disturbance, mood disturbance, and anxiety; L89.899 Pressure ulcer of other site, unspecified stage; Y83.5 Amputation of limb(s) as the cause of abnormal reaction of the patient, or of later complication, without mention of misadventure at the time of the procedure; Z68.29 Body mass index [BMI] 29.0-29.9, adult; E66.9 Obesity, unspecified
CPT/HCPCS: 36415; 43246; 71045; 76770; 80048; 80053; 80185-TC; 80202-TC; 81000-TC; 82140-TC; 82550-TC; 82607; 82962; 83036; 83540-TC; 83550-TC; 83605; 84443-TC; 85025; 85610-TC; 85730-TC; 86886; 86900; 86901; 87040-TC; 87070-TC; 87081; 87186-TC; 87210-TC; 88307; 93005; 94760; 96365; 96368; 99285; C1713; G0378; J0696; J0770; J0885; J1450; J1650; J1756; J1815; J1940; J1956; J2250; J2270; J2405; J2543; J2916; J3010; J3370; J3480; J3490; J7030; J7040; J7042; J7050; J7060; J7120